=== PATIENT | male | born 1960 | race Caucasian/White ===

== ENCOUNTER → 2016-10-08 | Outpatient (CLI) | payer OTHER ==
[~2016-10-08] MED LIST: AMLO10TA2 PO; ASPI81TA28 PO; ATOR-22 PO; BROM1SOL8 OPR; ERGO1TAB12 PO; HYG/25 PO; INSPMPNVLG; LOSA50TA6 PO; METF-384 PO; PRED1SUS3 OPR; SILD100T PO
== END | disposition home or self-care (01) ==
LOC: C.LABBFT 14:32
PROVIDERS: ATTEND Urology
DX: C61 Malignant neoplasm of prostate (principal)

== ENCOUNTER → 2017-02-18 | Outpatient (CLI) | payer OTHER ==
[2017-02-18 17:13] LABS: URINE APPEARANCE TURBID (CLEAR); URINE BILIRUBIN NEG (NEG); URINE COLOR DK YELLOW; URINE NITRITE NEG (NEG); URINE SPECIFIC GRAVITY 1.027 (1.000-1.030); UROBILINOGEN NEG (NEG)
[2017-02-18 17:15] LABS: ALT/SGPT 32 U/L (12-78); AST/SGOT 21 U/L (15-37); BLOOD UREA NITROGEN 21 mg/dl (7-18); CALCIUM 9.7 mg/dl (8.5-10.1); CARBON DIOXIDE 29 mmol/L (21-32); CHLORIDE 106 mmol/L (98-107); CHOLESTEROL 104 mg/dl (0-200); GLUCOSE 150 mg/dl (70-99); POTASSIUM 4.4 mmol/L (3.5-5.1); SODIUM 144 mmol/L (136-145)
[2017-02-18 17:18] LABS: CHOLESTEROL/HDL RATIO 2.5; HDL CHOLESTEROL 42 mg/dl; LDL CHOLESTEROL CALCULATED 38 mg/dl; TRIGLYCERIDES 120 mg/dl (0-150); VERY LOW DENSITY LIPOPROT CALC 24 mg/dl
[2017-02-18 17:23] LABS: MANUAL MICROSCOPIC REQUIRED? NO; REVIEW REQ? NO
[2017-02-18 17:48] LABS: URINE PROTIEN/CREAT RATIO 0.3 (0-0.2); URINE TOTAL PROTEIN 102.1 mg/dl (0-11.9)
[2017-02-19 05:37] LABS: ESTIMATED AVERAGE GLUCOSE 200 mg/dl; HA1C FLAG Normal (Normal)
== END | disposition home or self-care (01) ==
LOC: C.LABBFT 11:19
PROVIDERS: ATTEND Internal Medicine Nephrology
DX: E11.9 Type 2 diabetes mellitus without complications (principal); R80.9 Proteinuria, unspecified

== ENCOUNTER → 2017-03-02 | Outpatient (CLI) | payer OTHER ==
--- NOTE | 2017-03-02 11:22 | DIAGNOSTIC IMAGING REPORT ---
ULTRASOUND OF THE CAROTID ARTERIES CLINICAL HISTORY: Transient ischemic attack. COMPARISON STUDY: No priors. TECHNIQUE: Real-time, grayscale, and color Doppler sonography of the carotid arteries is performed. Images are reviewed in the transverse and longitudinal planes. FINDINGS: Blood pressure in the right arm measures 158/76 and blood pressure in the left arm measures 154/76. The carotid arteries are patent bilaterally and demonstrate antegrade flow. There is no significant atherosclerotic plaque identified. Normal doppler arterial waveforms are seen throughout. Velocity measurements are listed below. Common carotid peak systolic velocity (cm/sec): RIGHT: 80 LEFT: 87 ICA proximal peak systolic velocity (cm/sec): RIGHT: 71 LEFT: 80 ICA mid peak systolic velocity (cm/sec): RIGHT: 63 LEFT: 77 ICA distal peak systolic velocity (cm/sec): RIGHT: 76 LEFT: 60 ICA/CC peak systolic ratio: RIGHT: 1.0 LEFT: 0.9 Antegrade flow was shown in the vertebral arteries. The external carotid arteries are patent. IMPRESSION: 1. There is no sonographic evidence of hemodynamically significant stenosis in the right or left carotid arterial system. 2. Antegrade flow is shown in the vertebral arteries. Electronically signed by: Marlon Douglas M.D. 03/02/2017 11:21 AM Dictated Date/Time: 03/02/2017 11:20 AM
== END | disposition home or self-care (01) ==
LOC: C.ULTR 10:41
PROVIDERS: ATTEND Nurse Practitioner
DX: E11.9 Type 2 diabetes mellitus without complications (principal); Z86.73 Personal history of transient ischemic attack (TIA), and cerebral infarction without residual deficits

== ENCOUNTER → 2017-03-18 | Outpatient (CLI) | payer OTHER | END | disposition home or self-care (01) | LOC: C.PATHSPEC 14:59 | PROVIDERS: ATTEND Urology | DX: R97.20 Elevated prostate specific antigen [PSA] (principal); C61 Malignant neoplasm of prostate ==

== ENCOUNTER → 2017-09-13 | Outpatient (CLI) | payer OTHER ==
[2017-09-13 12:16] LABS: ESTIMATED AVERAGE GLUCOSE 203 mg/dl; HA1C FLAG Normal (Normal)
[2017-09-13 12:37] LABS: CHOLESTEROL/HDL RATIO 2.5; PROSTATE SPECIFIC ANTIGEN 4.68 ng/ml (0.000-4.000); THYROID STIMULATING HORMONE 1.07 uIu/ml (0.300-4.500)
[2017-09-13 13:03] LABS: RATIO 506.9 mcg/mg (0-30.0)
== END | disposition home or self-care (01) ==
LOC: C.LABBFT 10:30
PROVIDERS: ATTEND Physician Assistant
DX: Z00.00 Encounter for general adult medical examination without abnormal findings (principal); E55.9 Vitamin D deficiency, unspecified; N52.9 Male erectile dysfunction, unspecified; E11.3299 Type 2 diabetes mellitus with mild nonproliferative diabetic retinopathy without macular edema, unspecified eye; E78.5 Hyperlipidemia, unspecified; R10.9 Unspecified abdominal pain; S60.559A Superficial foreign body of unspecified hand, initial encounter; X58.XXXA Exposure to other specified factors, initial encounter; C61 Malignant neoplasm of prostate; R97.20 Elevated prostate specific antigen [PSA]

== ENCOUNTER 2020-09-13 21:45 | Inpatient (IN) ==
[2020-09-13] MEDS ORDERED: SODIUM CHLORIDE 0.9% 1000ML 1,000 ML IV ONE ×2 (22:16→23:09)
[2020-09-13] MEDS ORDERED: ACETAMINOPHEN 500 MG TAB PO STA (22:16)
--- NOTE | 2020-09-13 22:22 | Emergency Department Note ---
History of Present Illness General Chief complaint: Foot Injury/Pain Stated complaint: FOOT SORES Time Seen by Provider: 09/13/20 21:53 Source: patient Mode of arrival: ambulatory Limitations: no limitations History of Present Illness Maximum Pain Intensity: 2 This patient is a 59-year-old male who presents to the emergency department for evaluation of a right foot infection. Patient states that he has had some u lcers on his foot for the past 2 or 3 days. He has been seeing his primary care provider for this and they have been applying dressings. Per patient, he is not on any antibiotics for this. He also states that he tested positive for COVID- 19. Test was done 3 or 4 days ago. He states that this was only due to an exposure and he has not had any symptoms of COVID-19. He has not noticed any fevers. Denies shortness of breath or vomiting. Patient reports that he is having more warmth and redness of his foot. He rates his discomfort a 2/10, but states that he has neuropathy and is typically not able to feel her feet. Patient is a type II diabetic on an insulin pump. Home Medications Medication Instructions Recorded Confirmed Type aspirin 81 mg tablet,delayed 81 mg PO DAILY tab 05/09/19 09/13/20 History release cholecalciferol (vitamin D3) 25 2,000 units PO DAILY cap 05/09/19 09/13/20 History mcg (1,000 unit) capsule cyanocobalamin (vitamin B-12) 1,000 mcg PO DAILY tab 05/09/19 09/13/20 History 1,000 mcg tablet insulin lispro 100 unit/mL 120 units CONTINUOUS SUBCUTANEOUS 05/09/19 09/13/20 History subcutaneous solution INFUSION UD #11 ml Humalog U-100 Insulin 100 unit/mL 120 units CONTINUOUS SUBCUTANEOUS 11/23/19 09/13/20 Rx subcutaneous solution INFUSION .COMPLEX 90 Days #11 vial NS amlodipine 10 mg tablet 10 mg PO DAILY #90 tab 02/08/20 09/13/20 Rx atorvastatin 20 mg tablet 20 mg PO ONCE #90 tab 02/08/20 09/13/20 Rx metformin 1,000 mg tablet 1,000 mg PO BID #180 tab 02/08/20 09/13/20 Rx tramadol 50 mg tablet 50 mg PO Q4H PRN #180 tab 09/30/20 12/12/20 Rx acetaminophen 325 mg capsule 325 mg PO QID PRN 08/04/20 09/13/20 History chlorthalidone 25 mg tablet 50 mg PO BID #90 tab 08/20/20 09/13/20 Rx diclofenac sodium 1 % topical gel 2 g TOPICAL QID #100 g 08/20/20 09/13/20 Rx cyclobenzaprine 5 mg tablet See Rx Instructions PO DAILY PRN 08/25/20 09/13/20 Rx #45 tab losartan 100 mg tablet 50 mg PO DAILY #90 tab 08/25/20 09/13/20 Rx albuterol sulfate 90 mcg/actuation 2 puff INHALATION 6XD PRN #8.5 g 09/11/20 09/13/20 Rx aerosol inhaler amoxicillin 875 mg-potassium 1 tab PO BID #20 tab 09/12/20 09/13/20 Rx clavulanate 125 mg tablet benzonatate 100 mg capsule 100 mg PO TID #30 cap 09/13/20 09/13/20 Rx methylprednisolone 4 mg tablets in See Rx Instructions .ROUTE 09/13/20 09/13/20 Rx a dose pack .COMPLEX #21 ea Allergies Allergy/AdvReac Type Severity Reaction Status Date / Time animal dander Allergy Congested Verified 09/13/20 23:14 lisinopril AdvReac Mild COUGH Verified 09/13/20 23:14 Past Med/Surg History Medical History Diabetes mellitus type 2, uncontrolled Diabetic neuropathy Dyslipidemia History of TIA (transient ischemic attack) Hypertension Malignant neoplasm prostate Obesity Sleep apnea Spastic quadriplegia Stage 1 chronic kidney disease Surgical History History of ankle surgery History of cataract surgery History of prostate biopsy History of tonsillectomy Hx of cervical spine surgery Family History Mother Breast cancer Diabetes Father Myocardial infarction Kidney disease Diabetes Grandfather Diabetes Denies family history of Ovarian cancer Prostate cancer Colorectal cancer Social History Smoking Status: Never smoker Second Hand Exposure: No; Do You Dip or Chew Tobacco: No; Hx Alcohol Use: No Hx Substance Use: No Preferred Language: Albanian Communication Ability: Effective Visual Impairment: No Limitations Hearing Ability: Normal Technical Professional Required: No Beliefs That Will Affect Care: None marital status: Current Living Situation: Spouse current occupational status: employed 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 Other Information That Helps Us Care for You: No Feels Safe at Home: Yes Safety Concerns: Feels Safe At This Time Childhood Exposure to Second-Hand Smoke: Yes caffeine: Yes during the past year weight has: remained stable Dental Care, Regularly: Yes Physical Activity Frequency: 1-2 Times per Week Seatbelt Use: always Sunscreen Use: Yes Assistive Devices: Oxygen - Continuous Review of Systems A total of 10 systems reviewed and were otherwise negative Physical Exam Vital Signs Vital Signs - 24 hr 09/13/20 21:47 09/13/20 22:44 Temperature 38.3 C H Temperature Source Temporal Artery Scan Pulse Rate 124 H Pulse Rate [Right Finger] 115 H Respiratory Rate 18 16 Respiratory Effort / Characteristics Non-Labored Respiratory Depth Normal Blood Pressure 144/71 H Blood Pressure [Right Arm] 166/81 H Blood Pressure Mean 95 Blood Pressure Mean [Right Arm] 109 Pulse Oximetry 95 98 Oxygen Delivery Method Room Air Sepsis Recent Fever Within 48 Hours No Sepsis New/Unexplained Change in Mental Status No Sepsis Action Taken by Nursing No Action Required VITALS: Vitals are noted on the nurse's note and reviewed by myself. GENERAL: This is a 59-year-old male, in no acute distress, well-developed well- nourished. EARS: External auditory canals clear, tympanic membranes pearly max without erythema or effusion bilaterally. EYES: Pupils equal round and reactive to light and accommodation. MOUTH: Mucous membranes moist. NECK: Supple without nuchal rigidity. No lymphadenopathy. HEART: Regular rate and rhythm without murmurs gallops or rubs. LUNGS: Clear to auscultation bilaterally without wheezes, rales or rhonchi. No retractions or accessory muscle use. EXTREMITIES: Right foot with an ulceration to the plantar aspect of the foot at the area of the dorsal MTP. There is an additional ulceration to the medial aspect of the right great toe. There is erythema to the first, second and third toes extending midway up the dorsum of the foot with some possible lymphangitic streaking of the right anterior lower leg. There is purplish discoloration to the right second toe. There is macerated skin between the first and second toes with some skin sloughing. NEURO: Patient was alert and oriented to person place and time. Decreased sensation of bilateral lower extremities. Course Consultations Consultation #1: Dr. Sewell [facility] hospitalist Administered Medications Acetaminophen (Acetaminophen 325 Mg Tab) 650 mg PO Q4H PRN PRN Reason: pain/fever Stop: 10/14/20 01:10 Last Admin: 09/14/20 23:36 Dose: 650 mg Documented by: [id number] Admin: 09/14/20 16:02 Dose: 650 mg Documented by: [id number] Admin: 09/14/20 07:44 Dose: 650 mg Documented by: [id number] Albuterol (Albuterol Hfa 8 Gm Inhaler) 2 puffs INH Q4H PALMER Stop: 10/14/20 08:14 Last Admin: 09/14/20 22:54 Dose: 2 puffs Documented by: [id number] Admin: 09/14/20 19:47 Dose: 2 puffs Documented by: [id number] Admin: 09/14/20 15:24 Dose: 2 puffs Documented by: [id number] Admin: 09/14/20 12:13 Dose: 2 puffs Documented by: [id number] Admin: 09/14/20 08:30 Dose: 2 puffs Documented by: [id number] Amlodipine Besylate (Amlodipine Besylate 5 Mg Tab) 10 mg PO DAILY PALMER Stop: 10/14/20 08:59 Last Admin: 09/14/20 07:46 Dose: 10 mg Documented by: [id number] Aspirin (Aspirin 81 Mg Ectab) 81 mg PO DAILY PALMER Stop: 10/14/20 08:59 Last Admin: 09/14/20 07:46 Dose: 81 mg Documented by: [id number] Benzonatate (Benzonatate 100 Mg Capsule) 100 mg PO TID PALMER Stop: 10/14/20 08:59 Last Admin: 09/14/20 19:57 Dose: 100 mg Documented by: [id number] Admin: 09/14/20 12:25 Dose: 100 mg Documented by: [id number] Admin: 09/14/20 07:46 Dose: 100 mg Documented by: [id number] Chlorthalidone (Chlorthalidone 25 Mg Tab) 25 mg PO QAM PALMER Stop: 10/14/20 08:59 Last Admin: 09/14/20 07:45 Dose: 25 mg Documented by: [id number] Cyanocobalamin (Cyanocobalamin 500 Mcg Tablet (Vitamin B-12)) 1,000 mcg PO DAILY PALMER Stop: 10/14/20 08:59 Last Admin: 09/14/20 07:52 Dose: 1,000 mcg Documented by: [id number] Heparin Sodium (Porcine) (Heparin Sod 5,000 Unit/0.5 Ml Vial) 7,500 units SQ Q8 PALMER Stop: 10/14/20 21:59 Last Admin: 09/14/20 21:30 Dose: 7,500 units Documented by: [id number] Piperacillin Sod/Tazobactam (Sod 4.5 gm/ Dextrose) 120 mls @ 30 mls/hr IV Q8H PALMER; Protocol Stop: 09/21/20 03:59 Last Admin: 09/14/20 19:57 Dose: 30 mls/hr Documented by: [id number] Infusion: 09/14/20 16:35 Dose: 0 mls/hr Documented by: [id number] Admin: 09/14/20 12:24 Dose: 30 mls/hr Documented by: [id number] Infusion: 09/14/20 07:43 Dose: 0 mls/hr Documented by: [id number] Admin: 09/14/20 02:40 Dose: 30 mls/hr Documented by: [id number] Daptomycin 325 mg/ Syringe 6.5 mls @ 3.25 mls/min IV Q24H PALMER; Protocol Stop: 09/21/20 09:59 Last Admin: 09/14/20 09:42 Dose: 3.25 mls/min Documented by: [id number] Menthol (Cough Drop (Sugar Free) Alicia 24 Alicia/1 Box) 1 alicia BUCCAL PRN PRN PRN Reason: Cough Stop: 10/14/20 20:00 Last Admin: 09/14/20 20:09 Dose: 1 alicia Documented by: [id number] Vitamin D (Cholecalciferol 1,000 Units 25 Mcg Tab) 2,000 units PO DAILY PALMER Stop: 10/14/20 08:59 Last Admin: 09/14/20 07:51 Dose: 2,000 units Documented by: [id number] Discontinued Medications Acetaminophen (Acetaminophen 500 Mg Tab) 1,000 mg PO NOW STA Stop: 09/13/20 22:17 Last Admin: 09/13/20 22:43 Dose: 1,000 mg Documented by: [id number] Chlorthalidone (Chlorthalidone 25 Mg Tab) 50 mg PO BID PALMER Stop: 10/14/20 01:10 Last Admin: 09/14/20 02:39 Dose: 50 mg Documented by: [id number] Sodium Chloride (Nss 1000ml) 1,000 mls @ 999 mls/hr IV .Q1H1M ONE Stop: 09/13/20 23:16 Last Infusion: 09/14/20 00:09 Dose: 0 mls/hr Documented by: [id number] Admin: 09/13/20 22:43 Dose: 999 mls/hr Documented by: [id number] Piperacillin Sod/Tazobactam (Sod 3.375 gm/ Dextrose) 100 ml in 115 mls @ 230 mls/hr IV NOW STA Stop: 09/13/20 23:23 Last Infusion: 09/13/20 23:35 Dose: 0 mls/hr Documented by: [id number] Admin: 09/13/20 23:05 Dose: 230 mls/hr Documented by: [id number] Vancomycin HCl 2,250 mg/ (Sodium Chloride) 545 mls @ 200 mls/hr IV NOW ONE Stop: 09/14/20 01:37 Last Infusion: 09/14/20 01:55 Dose: 0 mls/hr Documented by: [id number] Admin: 09/13/20 23:05 Dose: 200 mls/hr Documented by: [id number] Sodium Chloride (Nss 1000ml) 1,000 mls @ 999 mls/hr IV .Q1H1M ONE Stop: 09/14/20 00:09 Last Admin: 09/14/20 02:32 Dose: Not Given Documented by: [id number] Potassium Chloride (Potassium Chloride Crtab 20 Meq Tabcr) 40 meq PO NOW STA Stop: 09/14/20 11:45 Last Admin: 09/14/20 12:24 Dose: 40 meq Documented by: [id number] Medical Decision Making Differential Diagnosis Differential diagnosis includes cellulitis, abscess, osteomyelitis, sepsis, diabetic foot infection, necrotizing fasciitis, Covid toes, among others. Home Medications Current Medication List: was personally reviewed by me Laboratory Data Attestation: I reviewed the patient's lab results. Result diagrams: 09/14/20 08:52 09/14/20 08:52 Lab Results 09/13/20 09/13/20 09/13/20 Range/Units 22:27 22:27 22:27 WBC 17.24 H (4.8-10.8) K/uL RBC 3.96 L (4.7-6.1) M/uL Hgb 10.7 L (14.0-18.0) g/dL Hct 31.8 L (42-52) % MCV 80.3 (80-100) fL MCH 27.0 (25-34) pg MCHC 33.6 (32-36) g/dL RDW Std Deviation 42.3 (36.4-46.3) fL RDW Coeff of Dajuan 14.3 (11.5-14.5) % Plt Count 389 (130-400) K/uL MPV 9.7 (7.4-10.4) fL Immature Gran % (Auto) 0.7 % Neut % (Auto) 75.1 % Lymph % (Auto) 11.1 % [place] % (Auto) 11.3 % Eos % (Auto) 1.6 % Baso % (Auto) 0.2 % Neut # (Auto) 12.96 H (1.4-6.5) K/uL Lymph # (Auto) 1.91 (1.2-3.4) K/uL [place] # (Auto) 1.95 H (0.11-0.59) K/uL Eos # (Auto) 0.27 (0-0.5) K/uL Baso # (Auto) 0.03 (0-0.2) K/uL Immature Gran # (Auto) 0.12 H (0.00-0.02) K/uL Sodium 136 (136-145) mmol/L Potassium 3.4 L (3.5-5.1) mmol/L Chloride 101 (98-107) mmol/L Carbon Dioxide 25 (21-32) mmol/L Anion Gap 10.0 (3-11) BUN 32 H (7-18) mg/dl Creatinine 1.41 H (0.6-1.4) mg/dl Est Cr Clr Drug Dosing 64.0 ml/min Est GFR ( Amer) 63.6 Est GFR (Non-Af Amer) 54.9 BUN/Creatinine Ratio 22.6 H (10-20) Glucose 187 H (70-99) mg/dl Lactate 2.4 H* (0.4-2.0) mmol/L Calcium 9.1 (8.5-10.1) mg/dl Total Bilirubin 0.5 (0.2-1) mg/dl AST 32 (15-37) U/L ALT 35 (12-78) U/L Alkaline Phosphatase 146 H (45-117) U/L Total Protein 7.5 (6.4-8.2) gm/dl Albumin 2.7 L (3.4-5.0) gm/dl Globulin 4.8 H (2.5-4.0) gm/dl Albumin/Globulin Ratio 0.6 L (0.9-2) Imaging Data Attestation: I personally reviewed and interpreted this imaging study as follows: Radiologist's Impression: RIGHT FOOT 3 VIEWS CLINICAL HISTORY: Right foot infection. FINDINGS: 3 views of the right foot are obtained. No prior studies are available for comparison at the time of dictation. The skeletal structures are osteopenic for age. No fracture is seen. There is no bony erosion or periostitis. Mild osteoarthritic change is seen at the first metatarsophalangeal joint. Soft tissue edema seen in the forefoot. There are foci of subcutaneous gas. Ulceration is suggested along the plantar aspect of the foot. Question a p unctate radiodense foreign body. This is only seen on the lateral projection. There is atherosclerotic calcification of the regional arteries. IMPRESSION: 1. No acute bony abnormality is identified. 2. An ulceration and a punctate radiodense foreign body are suggested along the plantar aspect of the forefoot. 3. Soft tissue edema is seen throughout the forefoot with foci of subcutaneous gas. This could be related to the ulceration or possibly gas-forming infection. Clinical correlation will be essential. SINGLE VIEW CHEST CLINICAL HISTORY: Covid. Right foot infection. FINDINGS: An AP, portable, upright chest radiograph is compared to study dated 11/28/2015. The examination is degraded by portable technique and apical lordotic positioning. The heart is enlarged. The pulmonary vasculature is noncongested. There are mild hazy interstitial opacities seen bilaterally. Scarring/atelectasis is noted in the left lower lung. No large pleural effusion or pneumothorax is seen. The skeletal structures are osteopenic. There are healed left-sided rib fractures. Arthritic change is noted in the shoulders. IMPRESSION: 1. Cardiomegaly with no radiographic evidence of congestive failure. 2. There are mild hazy interstitial airspace opacities seen bilaterally. Co rrelate clinically for evidence of an infectious/inflammatory pneumonitis. MDM Narrative The patient is a 59-year-old male who presents today complaining of an infection of his right foot. Patient is febrile and tachycardic on arrival. Patient also recently positive for COVID-19. Patient appears to have a fairly significant infection of the right foot. I suspect the fever and tachycardia are due to this infection rather than COVID-19 infection, as it sounds that the patient has most likely been infected for a while. It is possible that this foot infection began due to dermatologic manifestations of COVID-19, as patient does not recall any prior ulcerations or wounds to the foot. He has a significant leukocytosis as well as an elevation of his lactic acid. He had an outpatient wound culture which grew out gram-negative bacilli. Patient given IV fluids, Zosyn and vancomycin. Case was discussed with the hospitalist service who agreed to evaluate the patient for admission. Impression & Plan Sepsis, Diabetic foot infection, COVID-19 virus infection, Acute kidney injury Discharge Plan Visit Data Chief Complaint: Foot Injury/Pain Stated Complaint: FOOT SORES ED Provider: Milton García ED Midlevel Provider: Karolina Hammer Discharge Problem: Sepsis, Diabetic foot infection, COVID-19 virus infection, Acute kidney injury Patient Disposition: Admitted As Inpatient Discharge Instructions Interventions: ED Discharge Assessment Last Done: 09/14/20 00:48 Discharge Problem: Sepsis Qualifiers: Sepsis type: sepsis due to unspecified organism Sepsis acute organ dysfunction status: unspecified Qualified Code(s): A41.9 - Sepsis, unspecified organism
[2020-09-13 22:39] LABS: Basophils # (auto) 0.03 K/uL (0-0.2); Basophils % (auto) 0.2 %; Eosinophils # (auto) 0.27 K/uL (0-0.5); Eosinophils % (auto) 1.6 %; Hematocrit (blood only) 31.8 % (42-52); Hemoglobin 10.7 g/dL (14.0-18.0); Immature Granulocytes # (auto) 0.12 K/uL (0.00-0.02); Immature Granulocytes % (auto) 0.7 %; Lymphocytes # (auto) 1.91 K/uL (1.2-3.4); Lymphocytes % (auto) 11.1 %; Mean Corpuscular Hgb Conc 33.6 g/dL (32-36); Mean Corpuscular Volume 80.3 fL (80-100); Mean Platelet Volume 9.7 fL (7.4-10.4); Monocytes # (auto) 1.95 K/uL (0.11-0.59); Monocytes % (auto) 11.3 %; Neutrophils # (auto) 12.96 K/uL (1.4-6.5); Neutrophils % (auto) 75.1 %; Platelet Count 389 K/uL (130-400); RDW Coefficient of Variation 14.3 % (11.5-14.5); RDW Standard Deviation 42.3 fL (36.4-46.3); Red Blood Count 3.96 M/uL (4.7-6.1); White Blood Count 17.24 K/uL (4.8-10.8)
--- NOTE | 2020-09-13 22:49 | XRay Report ---
SINGLE VIEW CHEST CLINICAL HISTORY: Covid. Right foot infection. FINDINGS: An AP, portable, upright chest radiograph is compared to study dated 11/28/2015. The examina tion is degraded by portable technique and apical lordotic positioning. The heart is enlarged. The pu lmonary vasculature is noncongested. There are mild hazy interstitial opacities seen bilaterally. Sca rring/atelectasis is noted in the left lower lung. No large pleural effusion or pneumothorax is seen. The skeletal structures are osteopenic. There are healed left-sided rib fractures. Arthritic change is noted in the shoulders. IMPRESSION: 1. Cardiomegaly with no radiographic evidence of congestive failure. 2. There are mild hazy interstitial airspace opacities seen bilaterally. Correlate clinically for sandeep dence of an infectious/inflammatory pneumonitis. ACT 112: Negative or not required by law. Electronically signed by: Marlon Douglas M.D. 09/13/2020 10:47 PM
--- NOTE | 2020-09-13 22:51 | XRay Report ---
RIGHT FOOT 3 VIEWS CLINICAL HISTORY: Right foot infection. FINDINGS: 3 views of the right foot are obtained. No prior studies are available for comparison at th e time of dictation. The skeletal structures are osteopenic for age. No fracture is seen. There is no bony erosion or periostitis. Mild osteoarthritic change is seen at the first metatarsophalangeal elina nt. Soft tissue edema seen in the forefoot. There are foci of subcutaneous gas. Ulceration is suggest ed along the plantar aspect of the foot. Question a punctate radiodense foreign body. This is only se en on the lateral projection. There is atherosclerotic calcification of the regional arteries. IMPRESSION: 1. No acute bony abnormality is identified. 2. An ulceration and a punctate radiodense foreign body are suggested along the plantar aspect of the forefoot. 3. Soft tissue edema is seen throughout the forefoot with foci of subcutaneous gas. This could be rel ated to the ulceration or possibly gas-forming infection. Clinical correlation will be essential. Electronically signed by: Marlon Douglas M.D. 09/13/2020 10:50 PM
[2020-09-13] MEDS ORDERED: PIPERACILLIN/TAZOBACTAM 3.375 GM in DEXTROSE 5% 100 ML/100 ML BAG IV STA (22:54)
[2020-09-13] MEDS ORDERED: VANCOMYCIN CONSULT ACTIVE PRN (22:54)
[2020-09-13] MEDS ORDERED: VANCOMYCIN HCL 2,250 MG in SODIUM CHLORIDE 0.9% 500 ML IV ONE (22:54)
[2020-09-13] MEDS ORDERED: PIPERACILL/TAZOBAC CONSULT ACTIVE PRN (22:54)
[2020-09-13 22:57] LABS: Albumin Level 2.7 gm/dl (3.4-5.0); BUN Creatinine Ratio 22.6 (10-20); Calcium 9.1 mg/dl (8.5-10.1); Est GFR (African American) 63.6; Est GFR (Non-African American) 54.9; Potassium 3.4 mmol/L (3.5-5.1)
[2020-09-13 23:00] LABS: Albumin Globulin Ratio 0.6 (0.9-2); Bilirubin,Total 0.5 mg/dl (0.2-1); Globulin 4.8 gm/dl (2.5-4.0); Total Protein 7.5 gm/dl (6.4-8.2)
[2020-09-14] MEDS ORDERED: PIPERACILL/TAZOBAC CONSULT ACTIVE PRN (01:11)
[2020-09-14] MEDS ORDERED: CHLORTHALIDONE 25 MG TAB PO SCH (01:11)
[2020-09-14] MEDS ORDERED: VANCOMYCIN CONSULT ACTIVE PRN ×2 (01:11→06:03)
[2020-09-14] MEDS ORDERED: VANCOMYCIN HCL 1,000 MG in SODIUM CHLORIDE 0.9% 250 ML IV SCH ×2 (01:11→09:00)
[2020-09-14] MEDS ORDERED: ONDANSETRON INJ 2 MG/ML 2 ML VIAL IV PRN (01:11)
[2020-09-14] MEDS ORDERED: CYCLOBENZAPRINE HCL 5 MG TAB PO PRN (01:11)
--- NOTE | 2020-09-14 02:29 | History & Physical Report ---
Date of Service September 14, 2020 Assessment & Plan (1) Diabetic foot ulcers: Diabetic foot ulcers of right foot- Outpatient culture is growing gram-negative bacilli. Continue to follow sensitivities We will continue vancomycin IV and Zosyn IV begun in the ED Consult wound care. Order lower extremity arterial Dopplers to assess arterial circulation, but also to assess question of foreign body. May need a CT Consult wound care Consult orthopedic surgery when determined if foreign body is present Present on Admission?: Yes (2) Acute kidney injury: Creatinine 1.4 upon admission, with baseline 0.95. Outpatient med rec suggest chlorthalidone 50 mg p.o. twice daily, for now will reduce to 25 mg p.o. every morning. Reassess laboratories in a.m. Present on Admission?: Yes (3) COVID-19 virus infection: Patient initially had symptoms of cough and dyspnea on exertion about 7 days ago, when his was initially infected, but denies any symptoms at this time. Present on Admission?: Yes (4) Dyslipidemia: Continue atorvastatin 20 mg daily Present on Admission?: Yes (5) Hypertension: Continue amlodipine, aspirin. Hold losartan, and decrease chlorthalidone as noted Present on Admission?: Yes (6) Diabetic neuropathy: Present on Admission?: Yes (7) Diabetes mellitus type 2, uncontrolled: Will continue on his own insulin pump Present on Admission?: Yes (8) Sleep apnea: CPAP at bedtime as needed Present on Admission?: Yes Admission and Anticipated Discharge Date Admission Date: September 13, 2020 History of Present Illness Chief Complaint: The patient presents to the emergency department due to concerns regarding a right foot infection Primary Care Provider: DORCAS Orellana The patient is a 59-year-old male with a past medical history including sleep apnea, obesity, prostate cancer, hypertension, dyslipidemia, diabetic neuropathy, uncontrolled diabetes mellitus on insulin pump, excessive daytime sleepiness, hypertension, cervical spine disease, spastic quadriplegia, TIA, peripheral neuropathy, erectile dysfunction, proteinuria, proliferative diabetic retinopathy and vitamin D deficiency. His had been admitted to the hospital for COVID-19 virus infection, and he was tested on 09/11 and was positive for COVID-19 infection. He denies any symptoms related to COVID-19 infection at this time including shortness of breath, cough, dyspnea exertion, loss of taste or smell. He is primarily here today due to concerns regarding his right foot ulcers. He was started on Augmentin 875 mg p.o. twice daily at a virtual office visit on 09/12/2020. A surface wound culture taken at that time is presently growing gram-negative bacilli with sensitivities pending. In the emergency department this evening, patient was started on vancomycin IV and Zosyn IV. Pertinent laboratories included the following: Glucose 187, creatinine 1.4, WBC 17.24, hemoglobin 10.7, lactate 2.4, albumin 2.7 and potassium 3.4. Maximum temperature was 100.9 F X-ray of right foot showed no acute bony abnormality. An ulceration and a punctate radiodense foreign body are suggested along the plantar aspect of the forefoot. Soft tissue edema seen throughout the forefoot with foci of subcutaneous gas, which could be related to the ulceration or possibly gas- forming infection with clinical correlation being essential. Chest x-ray showed cardiomegaly with no radiographic evidence of congestive failure. There are mild hazy interstitial airspace opacities seen bilaterally, with clinical correlation needed for evidence of an infectious/inflammatory pneumonitis. Allergies Allergy/AdvReac Type Severity Reaction Status Date / Time animal dander Allergy Congested Verified 09/13/20 23:14 lisinopril AdvReac Mild COUGH Verified 09/13/20 23:14 Home Medications Medication Instructions Recorded Confirmed Type aspirin 81 mg tablet,delayed 81 mg PO DAILY tab 05/09/19 09/13/20 History release cholecalciferol (vitamin D3) 25 2,000 units PO DAILY cap 05/09/19 09/13/20 History mcg (1,000 unit) capsule cyanocobalamin (vitamin B-12) 1,000 mcg PO DAILY tab 05/09/19 09/13/20 History 1,000 mcg tablet insulin lispro 100 unit/mL 120 units CONTINUOUS SUBCUTANEOUS 05/09/19 09/13/20 History subcutaneous solution INFUSION UD #11 ml Humalog U-100 Insulin 100 unit/mL 120 units CONTINUOUS SUBCUTANEOUS 11/23/1909/21 Rx subcutaneous solution INFUSION .COMPLEX 90 Days #11 vial NS amlodipine 10 mg tablet 10 mg PO DAILY #90 tab 02/08/20 09/13/20 Rx atorvastatin 20 mg tablet 20 mg PO ONCE #90 tab 02/08/20 09/13/20 Rx metformin 1,000 mg tablet 1,000 mg PO BID #180 tab 02/08/20 09/13/20 Rx tramadol 50 mg tablet 50 mg PO Q4H PRN #180 tab 07/02/20 09/13/20 Rx acetaminophen 325 mg capsule 325 mg PO QID PRN 08/04/20 09/13/20 History chlorthalidone 25 mg tablet 50 mg PO BID #90 tab 08/20/20 09/13/20 Rx diclofenac sodium 1 % topical gel 2 g TOPICAL QID #100 g 08/20/20 09/13/20 Rx cyclobenzaprine 5 mg tablet See Rx Instructions PO DAILY PRN 08/25/20 09/13/20 Rx #45 tab losartan 100 mg tablet 50 mg PO DAILY #90 tab 08/25/20 09/13/20 Rx albuterol sulfate 90 mcg/actuation 2 puff INHALATION 6XD PRN #8.5 g 09/11/20 09/13/20 Rx aerosol inhaler amoxicillin 875 mg-potassium 1 tab PO BID #20 tab 09/12/20 09/13/20 Rx clavulanate 125 mg tablet benzonatate 100 mg capsule 100 mg PO TID #30 cap 09/13/20 09/13/20 Rx methylprednisolone 4 mg tablets in See Rx Instructions .ROUTE 09/13/20 09/13/20 Rx a dose pack .COMPLEX #21 ea Past Med/Surg History Medical History Diabetes mellitus type 2, uncontrolled Diabetic neuropathy Dyslipidemia History of TIA (transient ischemic attack) Hypertension Malignant neoplasm prostate Obesity Sleep apnea Spastic quadriplegia Stage 1 chronic kidney disease Surgical History History of ankle surgery History of cataract surgery History of prostate biopsy History of tonsillectomy Hx of cervical spine surgery Family History Mother Breast cancer Diabetes Father Myocardial infarction Kidney disease Diabetes Grandfather Diabetes Denies family history of Ovarian cancer Prostate cancer Colorectal cancer Social History Smoking Status: Never smoker Second Hand Exposure: No; Do You Dip or Chew Tobacco: No; Hx Alcohol Use: No Hx Substance Use: No Preferred Language: Rw[place] Communication Ability: Effective Visual Impairment: No Limitations Hearing Ability: Normal Company Manager Required: No Beliefs That Will Affect Care: None marital status: Current Living Situation: Spouse current occupational status: employed 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 Other Information That Helps Us Care for You: No Feels Safe at Home: Yes Safety Concerns: Feels Safe At This Time Childhood Exposure to Second-Hand Smoke: Yes caffeine: Yes during the past year weight has: remained stable Dental Care, Regularly: Yes Physical Activity Frequency: 1-2 Times per Week Seatbelt Use: always Sunscreen Use: Yes Assistive Devices: Cane Review of Systems Review of Systems: The patient denies chest pain, palpitations, shortness of breath, dyspnea on exertion, cough, sore throat, fevers, chills, sweats, weight change, fatigue, nausea, vomiting, diarrhea , constipation, abdominal pain, pelvic pain, blood in urine or stool, dysuria, urinary frequency or urgency, lightheadedness, dizziness, headache, memory loss, loss of consciousness, focal or generalized weakness, numbness or tingling in arms , generalized arthralgias or myalgias, back or neck pain, or night sweats. The review of systems is otherwise negative other than for that already noted above, and at least 10 systems have been reviewed. Physical Exam Physical Exam: The patient is awake, alert and oriented 3, well developed and well nourished, normocephalic and atraumatic, lying in bed and in no acute distress. HEENT--PERRL, EOMI, mucous membranes and oropharynx normal. Neck--supple. No JVD. No bruits. Thyroid normal, trachea midline, no adenopathy. Heart--normal S1 and S2. No murmurs, rubs or gallops. Lungs--clear bilaterally, no respiratory distress, no accessory muscle use. Abdomen--normal bowel sounds and soft. Nontender. Nondistended. Moderately obese Extremities--no cyanosis or clubbing. No edema. There are diminished pulses bilaterally Dermatologic--left lower extremity normal. Right foot with multiple ulcerations including plantar aspect dorsal MTP, medial aspect of right great toe. There is erythema first through third toes extending to the mid dorsum of the foot. The skin is macerated and skin sloughing between first and second toes and plantar area. Neurologic--cranial nerves II through XII grossly intact. Decreased peripheral sensation to touch Rheumatologic--normal range of motion. Psychiatric--normal affect. Results & Data Results & Data ([facility]) Vital Signs (Past 12 Hours) Vital Signs Temp Pulse Pulse Pulse Resp BP BP 09/14/20 01:10 99.5 F 109 H 20 153/73 H 09/14/20 00:48 110 H 20 163/73 H 09/14/20 00:27 99.9 F H 114 H 20 148/80 H 09/13/20 22:44 115 H 16 166/81 H 09/13/20 21:47 100.9 F H 124 H 18 144/71 H Pulse Ox 09/14/20 01:10 97 09/14/20 00:48 93 09/14/20 00:27 93 09/13/20 22:44 98 09/13/20 21:47 95 Laboratory Results Laboratory Results WBC 17.24 K/uL (4.8-10.8) H 09/13/20 22: RBC 3.96 M/uL (4.7-6.1) L 09/13/20 22: Hgb 10.7 g/dL (14.0-18.0) L 09/13/20 22: Hct 31.8 % (42-52) L 09/13/20 22: MCV 80.3 fL (80-100) 09/13/20 22: MCH 27.0 pg (25-34) 09/13/20 22: MCHC 33.6 g/dL (32-36) 09/13/20 22: RDW Std Deviation 42.3 fL (36.4-46.3) 09/13/20: RDW Coeff of Dajuan 14.3 % (11.5-14.5) 09/13/20: Plt Count 389 K/uL (130-400) 09/13/20 22: MPV 9.7 fL (7.4-10.4) 09/13/20: Immature Gran % (Auto) 0.7 % 09/13/20 22: Neut % (Auto) 75.1 % 09/13/20: Lymph % (Auto) 11.1 % 09/13/20: Mcleod % (Auto) 11.3 % 09/13/20 22: Eos % (Auto) 1.6 % 09/13/20 22:27 Baso % (Auto) 0.2 % 09/13/20 22: Neut # (Auto) 12.96 K/uL (1.4-6.5) H 09/13/20 22: Lymph # (Auto) 1.91 K/uL (1.2-3.4) 09/13/20 22: Mcleod # (Auto) 1.95 K/uL (0.11-0.59) H 09/13/20 22: Eos # (Auto) 0.27 K/uL (0-0.5) 09/13/20 22: Baso # (Auto) 0.03 K/uL (0-0.2) 09/13/20 22: Immature Gran # (Auto) 0.12 K/uL (0.00-0.02) H 09/13/20 22: Sodium 136 mmol/L (136-145) 09/13/20 22: Potassium 3.4 mmol/L (3.5-5.1) L 09/13/20: Chloride 101 mmol/L (98-107) 09/13/20 22: Carbon Dioxide 25 mmol/L (21-32) 09/13/20 22: Anion Gap 10.0 (3-11) 09/13/20 22: BUN 32 mg/dl (7-18) H 09/13/20 22: Creatinine 1.41 mg/dl (0.6-1.4) H 09/13/20: Est Cr Clr Drug Dosing 64.0 ml/min 09/13/20 22: Est GFR ( Amer) 63.6 09/13/20 22:27 Est GFR (Non-Af Amer) 54.9 09/13/20 22: BUN/Creatinine Ratio 22.6 (10-20) H 09/13/20 22: Glucose 187 mg/dl (70-99) H 09/13/20 22: POC Glucose 154 mg/dl (70-99) H 09/14/20 02:11 Lactate 2.5 mmol/L (0.4-2.0) H* 09/14/20 00:22 Calcium 9.1 mg/dl (8.5-10.1) 09/13/20 22:27 Total Bilirubin 0.5 mg/dl (0.2-1) 09/13/20 22:27 AST 32 U/L (15-37) 09/13/20 22:27 ALT 35 U/L (12-78) 09/13/20 22:27 Alkaline Phosphatase 146 U/L (45-117) H 09/13/20 22:27 Total Protein 7.5 gm/dl (6.4-8.2) 09/13/20 22:27 Albumin 2.7 gm/dl (3.4-5.0) L 09/13/20 22:27 Globulin 4.8 gm/dl (2.5-4.0) H 09/13/20 22:27 Albumin/Globulin Ratio 0.6 (0.9-2) L 09/13/20 22:27 Diagnostic Findings [facility], [id number] XRay Report Patient: MARIA GUADALUPE WOOTEN DAdmit Date: 09/13/20#: [id number]: [address] [facility][id number]: [address]B[facility] Date: 1960[facility] Zip: [place], [place] [address]Vsf: 59Location: EDSex: MRoom/Bed:Att Phy:Diagnosis: FOOT SORESPri Phy: Bee Tellez CRNPService Date: 09/13/20Fa Phy:Interpreting Phy: Marlon Douglas MDAdmit Phy: Ordering Phy: Karolina Hammer PA-C cc: ~ SINGLE VIEW CHEST CLINICAL HISTORY: Covid. Right foot infection. FINDINGS: An AP, portable, upright chest radiograph is compared to study dated 11/28/2015. The examination is degraded by portable technique and apical lordotic positioning. The heart is enlarged. The pulmonary vasculature is noncongested. There are mild hazy interstitial opacities seen bilaterally. Scarring/atelectasis is noted in the left lower lung. No large pleural effusion or pneumothorax is seen. The skeletal structures are osteopenic. There are healed left-sided rib fractures. Arthritic change is noted in the shoulders. IMPRESSION: 1. Cardiomegaly with no radiographic evidence of congestive failure. 2. There are mild hazy interstitial airspace opacities seen bilaterally. Correlate clinically for evidence of an infectious/inflammatory pneumonitis. ACT 112: Negative or not required by law. Electronically signed by: Marlon Douglas M.D. 09/13/2020 10:47 PM Dictated: 09/13/202245Transcribed: 09/13/202245 [facility], [id number] XRay Report Patient: MARIA GUADALUPE WOOTEN DAdmit Date: 09/13/20MR#: [id number]: [address][id number]: [address]: 1960[facility] Zip: [place] [address]Vzw: 59Location: EDSex: MRoom/Bed:Att Phy:Diagnosis: FOOT SORESPri Phy: Bee Tellez CRNPService Date: 09/13/20Fam Phy:Interpreting Phy: Marlon Douglas MDAdmit Phy: Ordering Phy: Karolina Hammer PA-C cc: ~ RIGHT FOOT 3 VIEWS CLINICAL HISTORY: Right foot infection. FINDINGS: 3 views of the right foot are obtained. No prior studies are available for comparison at the time of dictation. The skeletal structures are osteopenic for age. No fracture is seen. There is no bony erosion or periostitis. Mild osteoarthritic change is seen at the first metatarsophalangeal joint. Soft tissue edema seen in the forefoot. There are foci of subcutaneous gas. Ul ceration is suggested along the plantar aspect of the foot. Question a punctate radiodense foreign body. This is only seen on the lateral projection. There is atherosclerotic calcification of the regional arteries. IMPRESSION: 1. No acute bony abnormality is identified. 2. An ulceration and a punctate radiodense foreign body are suggested along the plantar aspect of the forefoot. 3. Soft tissue edema is seen throughout the forefoot with foci of subcutaneous gas. This could be related to the ulceration or possibly gas-forming infection. Clinical correlation will be essential. Electronically signed by: Marlon Douglas M.D. 09/13/2020 10:50 PM Dictated: 09/13/202246Transcribed: 09/13/202246 Code Status & VTE Plan Code Status Full code VTE Prophylaxis Plan VTE Prophylaxis will be ordered: Yes PG Care Time/CCT Total # of Minutes Spent Total Time Spent with Patient: Total time spent is greater than 50% in coordination of care (as documented) at patient's floor/unit and/or counseling patient: Coding Level of Care Code 87763 Initial Inpt Care Lvl 3 Diagnoses Diabetic foot ulcers E11.621; L97.509 Acute kidney injury N17.9 COVID-19 virus infection U07.1 Dyslipidemia E78.5 Hypertension I10 Diabetic neuropathy E11.40 Diabetes mellitus type 2, uncontrolled E11.65 Sleep apnea G47.30
[2020-09-14] MEDS: PIPERACILLIN/TAZOBACTAM 4.5 GM in DEXTROSE 5% 100 ML IV SCH ×3 (02:40→19:57)
[2020-09-14] MEDS: ACETAMINOPHEN 325 MG TAB PO PRN ×3 (07:44→23:36)
[2020-09-14] MEDS: CHLORTHALIDONE 25 MG TAB PO SCH (07:45)
[2020-09-14] MEDS: ASPIRIN 81 MG ECTAB PO SCH (07:46)
[2020-09-14] MEDS: BENZONATATE 100 MG CAPSULE PO SCH ×3 (07:46→19:57)
[2020-09-14] MEDS: amLODIPine BESYLATE 5 MG TAB PO SCH (07:46)
[2020-09-14] MEDS: CHOLECALCIFEROL 1,000 UNITS 25 MCG TAB PO SCH (07:51)
[2020-09-14] MEDS: CYANOCOBALAMIN 500 MCG TABLET (VITAMIN B-12) PO SCH (07:52)
[2020-09-14] MEDS: ALBUTEROL HFA 8 GM INHALER INH SCH ×5 (08:30→22:54)
--- NOTE | 2020-09-14 08:51 | Pharmacy Report ---
Pharmacy Abx Initial Consult - Date of Service September 14, 2020 - Pharmacy Dosing Scope Date of Consult: 09/13/20 Consultation requested by: Dr. Sewell Pharmacy is consulted to initiate Vancomycin and Zosyn IV/PO dosing therapy, order appropriate labs and adjust drug dose/frequency. - Subjective The patient is a 59 year old M admitted on 09/13/20 23:57. - Objective Height: 5 ft 4 in Weight: 102.7 kg Vital Signs (Past 12hrs): Vital Signs Temp Pulse Pulse Pulse Resp BP BP 09/14/20 08:30 114 H 16 09/14/20 07:36 38.1 C H 106 H 20 156/76 H 09/14/20 02:37 103 H 147/75 H 09/14/20 01:10 37.5 C 109 H 20 153/73 H 09/14/20 00:48 110 H 20 163/73 H 09/14/20 00:27 37.7 C H 114 H 20 148/80 H 09/13/20 22:44 115 H 16 166/81 H 09/13/20 21:47 38.3 C H 124 H 18 144/71 H Pulse Ox 09/14/20 08:30 96 09/14/20 07:36 95 09/14/20 02:37 09/14/20 01:10 97 09/14/20 00:48 93 09/14/20 00:27 93 09/13/20 22:44 98 09/13/20 21:47 95 Lab Results (24hrs): Laboratory Tests (24 Hours) 09/13/20 09/13/20 22:27 22:27 WBC 17.24 H Neut # (Auto) 12.96 H Creatinine 1.41 H Est Cr Clr Drug Dosing 64.0 Micro Results: 09/13/20 22:27 Aerobic Blood Culture - Pending Blood Anaerobic Blood Culture - Pending 09/13/20 22:27 Aerobic Blood Culture - Pending Blood Anaerobic Blood Culture - Pending - Assessment & Plan Assessment 59 year old M presents to ER for right diabetic foot ulcer. Outpatient culture growing Proteus mirabilis. Started on Vanc and Zosyn in ER, will continue for now. Right foot xray shows an ulceration and a punctate radiodense foreign body along plantar aspect of foot. Soft tissue edema throughout forefoot with foci of subcutaneous gas. Will consult ortho if determined to have foreign body in foot. * MEREDITH - SCr 1.4 on admission, baseline 0.95. If renal function improves may need to adjust dosing interval of Vancomycin * Tested positive for Covid 19 on 09/11, but patient denies any symptoms currently. Plan Vancomcyin & Zosyn for treatment of diabetic foot ulcer Vancomycin IV * Estimated PK Parameters: Vd 0.6 L/kg, Juan 0.058 hr-1, t1/2 11.9 hr * Loading dose: 2250 mg (21.9 mg/kg) * Maintenance dose: 1500 mg IV (14.6 mg/kg) every 14 hours * Goal trough level : ~ 15 mcg/mL * Trough/Random level ordered for 09/15/20 @ 1630 * A less than traditional dose and/or extended dosing interval has/have been selected due to likelihood of drug accumulation in obese patient/patient with h/o CKD. Piperacillin/tazobactam * 3.375g bolus administered over 30 minutes, then 4.5 g IV extended infusion every 8 hours for CrCl greater than 20 mL/min OR every 12 hours for CrCl 20 mL/min or less and dialysis. * Aggressive dosing selected due to critically ill status/BMI 35 or more/history of cystic fibrosis. Pharmacy will continue to follow and will adjust dose/frequency as necessary. Thank you.
[2020-09-14 09:19] LABS: Basophils # (auto) 0.03 K/uL (0-0.2); Basophils % (auto) 0.2 %; Eosinophils # (auto) 0.26 K/uL (0-0.5); Eosinophils % (auto) 1.5 %; Hematocrit (blood only) 31.4 % (42-52); Hemoglobin 10.5 g/dL (14.0-18.0); Immature Granulocytes # (auto) 0.11 K/uL (0.00-0.02); Immature Granulocytes % (auto) 0.7 %; Lymphocytes # (auto) 1.95 K/uL (1.2-3.4); Lymphocytes % (auto) 11.6 %; Mean Corpuscular Hgb Conc 33.4 g/dL (32-36); Mean Corpuscular Volume 80.7 fL (80-100); Mean Platelet Volume 9.8 fL (7.4-10.4); Monocytes # (auto) 1.94 K/uL (0.11-0.59); Monocytes % (auto) 11.5 %; Neutrophils # (auto) 12.59 K/uL (1.4-6.5); Neutrophils % (auto) 74.5 %; Platelet Count 393 K/uL (130-400); RDW Coefficient of Variation 14.6 % (11.5-14.5); RDW Standard Deviation 42.8 fL (36.4-46.3); Red Blood Count 3.89 M/uL (4.7-6.1); White Blood Count 16.88 K/uL (4.8-10.8)
--- NOTE | 2020-09-14 09:36 | Hospitalist Progress Note ---
Date of Service September 14, 2020 Assessment & Plan (1) Diabetic foot ulcers: Diabetic foot ulcers of right foot- Outpatient culture is growing proteus mirabilis and group B beta strep. Continue to follow sensitivities Dapto IV and Zosyn IV Consulted wound care. Order lower extremity arterial Dopplers to assess arterial circulation Discussed case with orthopedics - likely foci of air on X ray is due to open ulcer rather than gas producing infection especially as foot is overall improving, labs are improving, patient appears non toxic. No obvious signs of osteomyelitis on Xray. Would recommend arterial dopplers and IV antibiotic and monitor progress. If foot is worsening could consider formal consult but if he is improving, especially as he is at the beginning of his COVID infection and could worsen, would be better to hold off on any plans for surgery. BC pending (2) Acute kidney injury: Resolved Creatinine 1.4 upon admission, now 1.10 Outpatient med rec suggest chlorthalidone 50 mg p.o. twice daily, for now will reduce to 25 mg p.o. every morning. Repeat labs am (3) COVID-19 virus infection: Patient initially had symptoms of cough and dyspnea on exertion about 7 days ago, when his was initially infected, had been asymptomatic but today is developing dry cough and sob. He is about 4 days out from his COVID diagnosis Will consider decadron if O2 needs increase, at present he is on O2 more for comfort than for hypoxia, lowest recorded saturation is 93% Given infection and diabetes, will need to proceed with any steroid administration with caution (4) Dyslipidemia: Hold atorvastatin 20 mg daily while on dapto (5) Hypertension: Mild hypertension at present Continue amlodipine, aspirin. Hold losartan, and decrease chlorthalidone as noted (6) Diabetic neuropathy: does not appear to take medication for this (7) Diabetes mellitus type 2, uncontrolled: Will continue on his own insulin pump bsgs ac & hs (8) Sleep apnea: CPAP at bedtime as needed (9) DVT prophylaxis: heparin subq, scds Admission and Anticipated Discharge Date Admission Date: September 13, 2020 Supervising Physician Co-Signing Physician Notes chart reviewed and case d/w S Ifeoma TOSCANO multiple times today. as above Subjective Mr. Cao's foot infection symptoms started Tuesday. He saw his pcp and was told to put bacitracin and zinc on it and keep it wrapped. He later in the week did a telehealth visit and was prescribed Augmentin. He reports that on Tuesday wound started looking bad, flesh came off when unwrapped, then went to his pcp on Tuesday and was told it needed to be seen right away so he came in to the ED yesterday. Foot was draining clear drainage, did not look like pus but had foul odor. Today he feels his foot is improving, redness has decreased. He has been ambulating normally and has not stepped on anything to his knowledge but does have neuropathy. Wound was never painful. He has had some chills but no fevers at home. He was febrile over night here Sugars run around 150s, last A1c 7.8%. He is coughing, dry cough, non productive. No chest pain. He does feel short of breath after a coughing spell which he attributes to his asthma being kicked up by the cough. Review of Systems Constitutional: as per Subjective / HPI Respiratory: as per Subjective / HPI Cardiovascular: no chest pain and no palpitations Gastrointestinal: no abdominal pain, no nausea, no vomiting and no diarrhea/ loose stools Genitourinary: no dysuria and no urinary hesitancy Musculoskeletal: no back pain and no joint pain Integumentary: as per Subjective / HPI; no rash Physical Exam Physical Exam: General: no distress Eyes: normal inspection, PERLL Respiratory: chest non tender, clear to auscultation, normal breath sounds, no respiratory distress, dry cough, no accessory muscle use Cardiac: regular rate and rhythm, no rub or gallop, no murmur, no edema, no jvd, palpable pedal pulses GI/: active bowel sounds, no abd pain or tenderness, soft, non distended Extremities: normal range of motion, normal strength, non tender Neuro/Psych: alert and oriented x 3, normal mood and affect Skin: normal color, dry, left foot with large area of slough and skin maceration under great toe as well as eek of eschar on plantar foot. Second toe is purple. Erythema is minimal around foot and ankle with faint lymphangitis up the clay. No crepitus palpated. Non tender to palpation though patient has neuropathy. Significant amount of serous drainage saturating dressing. Results & Data Results & Data ([facility]) Vital Signs (Past 12 Hours) Vital Signs Temp Pulse Pulse Pulse Resp BP BP 09/14/20 08:30 114 H 16 09/14/20 07:36 38.1 C H 106 H 20 156/76 H 09/14/20 02:37 103 H 147/75 H 09/14/20 01:10 37.5 C 109 H 20 153/73 H 09/14/20 00:48 110 H 20 163/73 H 09/14/20 00:27 37.7 C H 114 H 20 148/80 H 09/13/20 22:44 115 H 16 166/81 H 09/13/20 21:47 38.3 C H 124 H 18 144/71 H Pulse Ox 09/14/20 08:30 96 09/14/20 07:36 95 09/14/20 02:37 09/14/20 01:10 97 09/14/20 00:48 93 09/14/20 00:27 93 09/13/20 22:44 98 09/13/20 21:47 95 PG Care Time/CCT Total # of Minutes Spent Total Time Spent with Patient: Total time spent is greater than 50% in coordination of care (as documented) at patient's floor/unit and/or counseling patient: Coding Level of Care Code 42719 Subseq Hosp Care Lvl 3 Diagnoses Diabetic foot ulcers E11.621; L97.509 Acute kidney injury N17.9 COVID-19 virus infection U07.1 Dyslipidemia E78.5 Hypertension I10 Diabetic neuropathy E11.40 Diabetes mellitus type 2, uncontrolled E11.65 Sleep apnea G47.30 DVT prophylaxis Z29.9
[2020-09-14 09:38] LABS: Albumin Level 2.6 gm/dl (3.4-5.0); BUN Creatinine Ratio 23.5 (10-20); C Reactive Protein 15.9 mg/dl (0-0.29); Creatinine Clr Calc Pharmacy 80.3 ml/min; Est GFR (African American) 85.9; Est GFR (Non-African American) 74.1; Potassium 3.3 mmol/L (3.5-5.1)
[2020-09-14 09:41] LABS: Albumin Globulin Ratio 0.5 (0.9-2); Bilirubin,Total 0.5 mg/dl (0.2-1); Globulin 4.7 gm/dl (2.5-4.0); Total Protein 7.3 gm/dl (6.4-8.2)
[2020-09-14] MEDS: DAPTOmycin 325 MG in SYRINGE 0 ML IV SCH (09:42)
[2020-09-14] MEDS ORDERED: POTASSIUM CHLORIDE CRTAB 20 MEQ TABCR PO STA (11:44)
--- NOTE | 2020-09-14 11:57 | Ultrasound Report ---
US arterial duplex bilateral lower extremity CLINICAL HISTORY: diabetic foot ulcer on right COMPARISON STUDY: None. FINDINGS: The ankle brachial indices were not obtained. There is scattered calcified plaque seen thro ughout the bilateral lower extremity arterial systems. There are monophasic waveforms within the righ t dorsalis pedis artery with a focal area of increased systolic velocity measuring 232 cm/s. This is consistent with an area of stenosis. The remaining bilateral lower extremity arterial systems demonst rate normal biphasic to triphasic waveforms and velocities. No evidence for arterial occlusion. IMPRESSION: 1. A focal area of hemodynamically significant stenosis seen within the right dorsalis pedis artery. 2. The remaining bilateral lower extremity arterial systems show no significant stenosis or occlusion . ACT 112: Negative or not required by law. Electronically signed by: Lopez Garcia M.D. 09/14/2020 11:56 AM
[2020-09-14] MEDS ORDERED: VANCOMYCIN HCL 1,500 MG in SODIUM CHLORIDE 0.9% 500 ML IV SCH (13:00)
[2020-09-14] MEDS ORDERED: DEXTROSE 50% 50 ML SYRINGE IV PRN (14:15)
[2020-09-14] MEDS ORDERED: GLUCAGON FOR INJ 1 MG VIAL SQ PRN (14:15)
[2020-09-14] MEDS ORDERED: GLUCOSE 40% GEL 15 GM TUBE PO PRN (14:15)
[2020-09-14] MEDS ORDERED: CARBOHYDRATES FOR HYPOGLYCEMIA PO PRN (14:15)
[2020-09-14] MEDS ORDERED: GLUCOSE 10 TABS/TUBE PO PRN (14:15)
[2020-09-14] MEDS ORDERED: INSULIN HUMAN LISPRO (humaLOG) 100 UNITS/ML VIAL SC PRN (14:15)
[2020-09-14] MEDS ORDERED: COUGH DROP (SUGAR FREE) LOZ 24 LOZ/1 BOX BUCCAL PRN (20:01)
[2020-09-14] MEDS: HEPARIN SOD 5,000 UNIT/0.5 ML VIAL SQ SCH (21:30)
[2020-09-15] MEDS: ALBUTEROL HFA 8 GM INHALER INH SCH ×6 (02:18→23:27)
[2020-09-15] MEDS: PIPERACILLIN/TAZOBACTAM 4.5 GM in DEXTROSE 5% 100 ML IV SCH (05:05)
[2020-09-15] MEDS: HEPARIN SOD 5,000 UNIT/0.5 ML VIAL SQ SCH ×3 (05:20→21:37)
[2020-09-15 07:30] LABS: Basophils # (auto) 0.02 K/uL (0-0.2); Basophils % (auto) 0.1 %; Eosinophils # (auto) 0.28 K/uL (0-0.5); Eosinophils % (auto) 1.7 %; Hematocrit (blood only) 30.3 % (42-52); Hemoglobin 10.3 g/dL (14.0-18.0); Immature Granulocytes # (auto) 0.12 K/uL (0.00-0.02); Immature Granulocytes % (auto) 0.7 %; Lymphocytes # (auto) 1.88 K/uL (1.2-3.4); Lymphocytes % (auto) 11.6 %; Mean Corpuscular Hemoglobin 27.5 pg (25-34); Mean Platelet Volume 10.2 fL (7.4-10.4); Monocytes # (auto) 1.61 K/uL (0.11-0.59); Monocytes % (auto) 9.9 %; Neutrophils # (auto) 12.28 K/uL (1.4-6.5); Platelet Count 444 K/uL (130-400); RDW Coefficient of Variation 14.8 % (11.5-14.5); RDW Standard Deviation 43.9 fL (36.4-46.3); Red Blood Count 3.74 M/uL (4.7-6.1); White Blood Count 16.19 K/uL (4.8-10.8)
[2020-09-15 08:04] LABS: Albumin Level 2.5 gm/dl (3.4-5.0); C Reactive Protein 13.7 mg/dl (0-0.29); Calcium 8.9 mg/dl (8.5-10.1); Creatinine Clr Calc Pharmacy 90.1 ml/min; Est GFR (African American) 98.8; Est GFR (Non-African American) 85.2; Magnesium 2.1 mg/dl (1.8-2.4); Potassium 3.1 mmol/L (3.5-5.1)
[2020-09-15 08:07] LABS: Albumin Globulin Ratio 0.5 (0.9-2); Bilirubin,Total 0.5 mg/dl (0.2-1); Total Protein 7.5 gm/dl (6.4-8.2)
[2020-09-15] MEDS: amLODIPine BESYLATE 5 MG TAB PO SCH (09:26)
[2020-09-15] MEDS: ASPIRIN 81 MG ECTAB PO SCH (09:26)
[2020-09-15] MEDS: CHLORTHALIDONE 25 MG TAB PO SCH (09:26)
[2020-09-15] MEDS: CHOLECALCIFEROL 1,000 UNITS 25 MCG TAB PO SCH (09:26)
[2020-09-15] MEDS: DAPTOmycin 325 MG in SYRINGE 0 ML IV SCH (09:27)
[2020-09-15] MEDS: CYANOCOBALAMIN 500 MCG TABLET (VITAMIN B-12) PO SCH (09:27)
[2020-09-15] MEDS: BENZONATATE 100 MG CAPSULE PO SCH ×3 (09:28→21:36)
[2020-09-15] MEDS ORDERED: POTASSIUM CHLORIDE CRTAB 20 MEQ TABCR PO STA ×2 (11:03→16:24)
[2020-09-15] MEDS: cefTRIAXone SODIUM 2,000 MG in DEXTROSE 5% 50 ML IV SCH (11:24)
[2020-09-15] MEDS: DEXAMETHASONE SOD PHOSPHATE 6 MG in SYRINGE 0 ML IV SCH (12:03)
[2020-09-15] MEDS: ACETAMINOPHEN 325 MG TAB PO PRN (16:03)
--- NOTE | 2020-09-15 16:23 | Hospitalist Progress Note ---
Date of Service September 15, 2020 Assessment & Plan (1) Diabetic foot ulcers: Diabetic foot ulcers of right foot-infected, with surrounding cellulitis Outpatient culture is growing proteus mirabilis and group B beta strep. Sensitive to ceftriaxone Dapto IV and Zosyn IV were started initially-we will narrow down to ceftriaxone Consulted wound care awaiting consultation. With lower extremity arterial Dopplers to assess arterial circulation-shows hemodynamically significant stenosis of the right dorsalis pedis, although he has strong pulses on examination Previous hospitalist discussed case with orthopedics - likely foci of air on X ray is due to open ulcer rather than gas producing infection especially as foot is overall improving, labs are improving, patient appears non toxic. No obvious signs of osteomyelitis on Xray. BCx no growth to date Foot does look like it needs debridement and at a minimum, formal orthopedic evaluation. We will place consult to orthopedics in case of need for surgical intervention -Continue IV ceftriaxone -Leukocytosis persists, continues with fevers which could be from Covid versus foot infection -Follow CBC, CRP, ESR, CMP in the morning -Continue to follow blood cultures -Continue wound care dressing changes (2) Fever: Spiking fevers for the last 2 days here-could be secondary to foot infection versus Covid-19 infection Tylenol as needed Follow blood cultures Continue antibiotics for the foot Procalcitonin is normal at 0.3 (3) Acute kidney injury: Resolved Creatinine 1.4 upon admission, now 0.9 Outpatient med rec shows dosing of chlorthalidone to be 50 mg p.o. twice daily, for now will reduce to 25 mg p.o. every morning. Repeat labs am (4) COVID-19 virus infection: Patient initially had symptoms of cough and dyspnea on exertion about 7 days prior to admission, when his was initially infected, and he had been asymptomatic but developed dry cough and sob as well as hypoxia on 09/14. He was tested here and was positive on 09/11 upon admission Because he is requiring oxygen his pulse ox was less than 94%, and he is symptomatic with shortness of breath and has evidence of pneumonia on chest x-ray-start dexamethasone 6 mg IV once daily -Also discussed with him about starting remdesivir x5-day course-he is agreeable We will hold off on convalescent plasma as no real likely benefit in ongoing studies and do not want to fluid overload him Continue supplemental O2 to keep pulse ox greater than 92% Follow chest x-ray to resolution Continue Tessalon Perles for cough, albuterol 2 puffs every 4 hours scheduled (5) Hypokalemia: Possibly secondary to chlorthalidone Replace with a total of 60 mEq potassium chloride Follow BMP and magnesium in the morning (6) Hypertension: Blood pressures mildly elevated Continue amlodipine, aspirin. Holding losartan for previous MEREDITH but could likely restart tomorrow Continue lower dose of chlorthalidone 25 mg once daily (7) Diabetic neuropathy: does not appear to take medication for this (8) Diabetes mellitus type 2, uncontrolled: Will continue on his own insulin pump Holding Metformin from home bsgs ac & hs Expect hyperglycemia now that on Decadron-can give supplemental NovoLog as needed (9) Sleep apnea: This is a suspected diagnosis but he has not had a formal sleep study yet (10) Cervical spine disease: He had a recent cervical spine fusion about 3 months ago Doing well with this and walks with a cane (11) Dyslipidemia: Held atorvastatin 20 mg daily while on dapto (12) Acute respiratory failure with hypoxia: As above, secondary to Covid-19 pneumonia Continue supplemental O2 and wean off as able to Continue dexamethasone which was started today (13) DVT prophylaxis: heparin subq, scds Disposition-continued stay Admission and Anticipated Discharge Date Admission Date: September 13, 2020 Subjective Patient has been quite anxious throughout the day and tearful that multiple times throughout our conversation. He reports he was feeling a little short of breath this morning but is now much improved after starting IV steroids. He is spiking fevers today. He reports that his left foot erythema is much improved from previous, and does not recall having any pain or stepping on anything sharp. He denies cough. No nausea or vomiting, no headache or sore throat. Review of Systems Review of Systems: All systems reviewed & are unremarkable except as noted in HPI & below Physical Exam Constitutional: WD/WN, vitals as above + obese Eyes: + anicteric sclerae Neck: trachea midline, no thyromegaly Respiratory: normal respiratory effort Auscultation: + crackles (At bases bilaterally); no rhonchi and no wheezes Cardiovascular: Rate/Rhythm: regular rate and regular rhythm Heart Sounds: no murmur Vessels: dorsalis pedis pulses present (Has 2+ dorsalis pedis pulse on the right) Extremities: + edema (Trace pitting edema of the legs right greater than left) Chest (Breasts): Chest: normal inspection of chest Gastrointestinal (Abdomen): normal bowel sounds, soft, nontender, no hepatosplenomegaly Musculoskeletal: Extremities: no cyanosis and no clubbing Skin: + wound (Large open ulcer on the right dorsal plantar and medial surface with serous) and + erythema (Right dorsal foot with edema) Also with Blanched area of macerated skin the dorsal and plantar surface of the forefoot just proximal to the toes, right second toe is a sausage digit and is purpleish with discoloration Neurologic: moves all extremities and awake; no focal motor deficits Psychiatric: Orientation: alert and oriented x 3 Speech: normal rate/rhythm/volume of speech Affect: + anxious affect Mood: + anxious mood Lymphatic: no lymphedema Results & Data Results & Data ([facility]) Vital Signs (Past 12 Hours) Vital Signs Temp Pulse Pulse Resp BP BP Pulse Ox 09/15/20 16:01 38.1 C H 108 H 20 149/73 H 97 09/15/20 15:52 38.0 C H 106 H 21 170/87 H 94 09/15/20 15:16 113 H 22 98 09/15/20 11:20 37.7 C H 24 97 09/15/20 11:17 112 H 20 96 09/15/20 08:18 37.9 C H 116 H 22 165/72 H 92 09/15/20 07:30 112 H 20 92 09/15/20 05:23 37.1 C Laboratory Results 09/15/20 09/15/20 09/15/20 Range/Units 20:19 17:05 12:13 WBC (4.8-10.8) K/uL RBC (4.7-6.1) M/uL Hgb (14.0-18.0) g/dL Hct (42-52) % MCV (80-100) fL MCH (25-34) pg MCHC (32-36) g/dL RDW Std Deviation (36.4-46.3) fL RDW Coeff of Dajuan (11.5-14.5) % Plt Count (130-400) K/uL MPV (7.4-10.4) fL Immature Gran % (Auto) % Neut % (Auto) % Lymph % (Auto) % [place] % (Auto) % Eos % (Auto) % Baso % (Auto) % Neut # (Auto) (1.4-6.5) K/uL Lymph # (Auto) (1.2-3.4) K/uL [place] # (Auto) (0.11-0.59) K/uL Eos # (Auto) (0-0.5) K/uL Baso # (Auto) (0-0.2) K/uL Immature Gran # (Auto) (0.00-0.02) K/uL Sodium (136-145) mmol/L Potassium (3.5-5.1) mmol/L Chloride (98-107) mmol/L Carbon Dioxide (21-32) mmol/L Anion Gap (3-11) BUN (7-18) mg/dl Creatinine (0.6-1.4) mg/dl Est Cr Clr Drug Dosing ml/min Est GFR ( Amer) Est GFR (Non-Af Amer) BUN/Creatinine Ratio (10-20) Glucose (70-99) mg/dl POC Glucose 232 H 184 H 177 H (70-99) mg/dl Calcium (8.5-10.1) mg/dl Magnesium (1.8-2.4) mg/dl Total Bilirubin (0.2-1) mg/dl AST (15-37) U/L ALT (12-78) U/L Alkaline Phosphatase (45-117) U/L C-Reactive Protein (0-0.29) mg/dl Total Protein (6.4-8.2) gm/dl Albumin (3.4-5.0) gm/dl Globulin (2.5-4.0) gm/dl Albumin/Globulin Ratio (0.9-2) Procalcitonin (0-0.5) ng/ml 09/15/20 09/15/20 09/15/20 Range/Units 08:25 06:33 06:33 WBC (4.8-10.8) K/uL RBC (4.7-6.1) M/uL Hgb (14.0-18.0) g/dL Hct (42-52) % MCV (80-100) fL MCH (25-34) pg MCHC (32-36) g/dL RDW Std Deviation (36.4-46.3) fL RDW Coeff of Dajuan (11.5-14.5) % Plt Count (130-400) K/uL MPV (7.4-10.4) fL Immature Gran % (Auto) % Neut % (Auto) % Lymph % (Auto) % [place] % (Auto) % Eos % (Auto) % Baso % (Auto) % Neut # (Auto) (1.4-6.5) K/uL Lymph # (Auto) (1.2-3.4) K/uL [place] # (Auto) (0.11-0.59) K/uL Eos # (Auto) (0-0.5) K/uL Baso # (Auto) (0-0.2) K/uL Immature Gran # (Auto) (0.00-0.02) K/uL Sodium 139 (136-145) mmol/L Potassium 3.1 L (3.5-5.1) mmol/L Chloride 105 (98-107) mmol/L Carbon Dioxide 27 (21-32) mmol/L Anion Gap 7.0 (3-11) BUN 19 H (7-18) mg/dl Creatinine 0.98 (0.6-1.4) mg/dl Est Cr Clr Drug Dosing 90.1 ml/min Est GFR ( Amer) 98.8 Est GFR (Non-Af Amer) 85.2 BUN/Creatinine Ratio 19.0 (10-20) Glucose 132 H (70-99) mg/dl POC Glucose 159 H (70-99) mg/dl Calcium 8.9 (8.5-10.1) mg/dl Magnesium 2.1 (1.8-2.4) mg/dl Total Bilirubin 0.5 (0.2-1) mg/dl AST 26 (15-37) U/L ALT 30 (12-78) U/L Alkaline Phosphatase 152 H (45-117) U/L C-Reactive Protein 13.70 H (0-0.29) mg/dl Total Protein 7.5 (6.4-8.2) gm/dl Albumin 2.5 L (3.4-5.0) gm/dl Globulin 5.0 H (2.5-4.0) gm/dl Albumin/Globulin Ratio 0.5 L (0.9-2) Procalcitonin 0.34 (0-0.5) ng/ml 12/14/20 Range/Units 06:33 WBC 16.19 H (4.8-10.8) K/uL RBC 3.74 L (4.7-6.1) M/uL Hgb 10.3 L (14.0-18.0) g/dL Hct 30.3 L (42-52) % MCV 81.0 (80-100) fL MCH 27.5 (25-34) pg MCHC 34.0 (32-36) g/dL RDW Std Deviation 43.9 (36.4-46.3) fL RDW Coeff of Dajuan 14.8 H (11.5-14.5) % Plt Count 444 H (130-400) K/uL MPV 10.2 (7.4-10.4) fL Immature Gran % (Auto) 0.7 % Neut % (Auto) 76.0 % Lymph % (Auto) 11.6 % [place] % (Auto) 9.9 % Eos % (Auto) 1.7 % Baso % (Auto) 0.1 % Neut # (Auto) 12.28 H (1.4-6.5) K/uL Lymph # (Auto) 1.88 (1.2-3.4) K/uL [place] # (Auto) 1.61 H (0.11-0.59) K/uL Eos # (Auto) 0.28 (0-0.5) K/uL Baso # (Auto) 0.02 (0-0.2) K/uL Immature Gran # (Auto) 0.12 H (0.00-0.02) K/uL Sodium (136-145) mmol/L Potassium (3.5-5.1) mmol/L Chloride (98-107) mmol/L Carbon Dioxide (21-32) mmol/L Anion Gap (3-11) BUN (7-18) mg/dl Creatinine (0.6-1.4) mg/dl Est Cr Clr Drug Dosing ml/min Est GFR ( Amer) Est GFR (Non-Af Amer) BUN/Creatinine Ratio (10-20) Glucose (70-99) mg/dl POC Glucose (70-99) mg/dl Calcium (8.5-10.1) mg/dl Magnesium (1.8-2.4) mg/dl Total Bilirubin (0.2-1) mg/dl AST (15-37) U/L ALT (12-78) U/L Alkaline Phosphatase (45-117) U/L C-Reactive Protein (0-0.29) mg/dl Total Protein (6.4-8.2) gm/dl Albumin (3.4-5.0) gm/dl Globulin (2.5-4.0) gm/dl Albumin/Globulin Ratio (0.9-2) Procalcitonin (0-0.5) ng/ml PG Care Time/CCT Total # of Minutes Spent Total Time Spent with Patient: Total time spent is greater than 50% in coordination of care (as documented) at patient's floor/unit and/or counseling patient: Coding Level of Care Code 61666 Subseq Hosp Care Lvl 3 Diagnoses Diabetic foot ulcers E11.621; L97.509 Fever R50.9 Acute kidney injury N17.9 COVID-19 virus infection U07.1 Hypokalemia E87.6 Hypertension I10 Diabetic neuropathy E11.40 Diabetes mellitus type 2, uncontrolled E11.65 Sleep apnea G47.30 Cervical spine disease M48.9 Dyslipidemia E78.5 Acute respiratory failure with hypoxia J96.01 DVT prophylaxis Z29.9
[2020-09-15] MEDS ORDERED: REMDESIVIR 200 MG in SODIUM CHLORIDE 0.9% 210 ML IV ONE (16:26)
[2020-09-15] MEDS ORDERED: VANCOMYCIN TROUGH ONE (16:30)
[2020-09-15] MEDS: SODIUM CHLORIDE 0.9% 10ML FLUSH IV SCH (19:50)
[2020-09-16] MEDS: ALBUTEROL HFA 8 GM INHALER INH SCH ×3 (02:13→11:24)
[2020-09-16] MEDS: HEPARIN SOD 5,000 UNIT/0.5 ML VIAL SQ SCH ×3 (05:55→21:40)
[2020-09-16 07:34] LABS: Basophils # (auto) 0.02 K/uL (0-0.2); Basophils % (auto) 0.1 %; Eosinophils # (auto) 0.03 K/uL (0-0.5); Eosinophils % (auto) 0.2 %; Hemoglobin 10.1 g/dL (14.0-18.0); Immature Granulocytes # (auto) 0.18 K/uL (0.00-0.02); Immature Granulocytes % (auto) 0.9 %; Lymphocytes # (auto) 2.09 K/uL (1.2-3.4); Lymphocytes % (auto) 10.9 %; Mean Corpuscular Hemoglobin 27.2 pg (25-34); Mean Corpuscular Hgb Conc 33.7 g/dL (32-36); Mean Corpuscular Volume 80.9 fL (80-100); Mean Platelet Volume 9.9 fL (7.4-10.4); Monocytes # (auto) 1.73 K/uL (0.11-0.59); Neutrophils % (auto) 78.9 %; Platelet Count 495 K/uL (130-400); RDW Coefficient of Variation 14.9 % (11.5-14.5); RDW Standard Deviation 44.2 fL (36.4-46.3); Red Blood Count 3.71 M/uL (4.7-6.1); White Blood Count 19.15 K/uL (4.8-10.8)
[2020-09-16 08:04] LABS: Albumin Level 2.4 gm/dl (3.4-5.0); BUN Creatinine Ratio 23.3 (10-20); Calcium 9.5 mg/dl (8.5-10.1); Est GFR (African American) 102.6; Est GFR (Non-African American) 88.5; Magnesium 2.2 mg/dl (1.8-2.4); Potassium 3.5 mmol/L (3.5-5.1)
[2020-09-16 08:07] LABS: Albumin Globulin Ratio 0.4 (0.9-2); Bilirubin,Total 0.4 mg/dl (0.2-1); Globulin 5.4 gm/dl (2.5-4.0); Total Protein 7.8 gm/dl (6.4-8.2)
[2020-09-16] MEDS: DEXAMETHASONE SOD PHOSPHATE 6 MG in SYRINGE 0 ML IV SCH (08:53)
[2020-09-16] MEDS: BENZONATATE 100 MG CAPSULE PO SCH ×3 (08:54→20:35)
[2020-09-16] MEDS: amLODIPine BESYLATE 5 MG TAB PO SCH (08:55)
[2020-09-16] MEDS: CHOLECALCIFEROL 1,000 UNITS 25 MCG TAB PO SCH (08:55)
[2020-09-16] MEDS: ASPIRIN 81 MG ECTAB PO SCH (08:55)
[2020-09-16] MEDS: CHLORTHALIDONE 25 MG TAB PO SCH (08:56)
[2020-09-16] MEDS: CYANOCOBALAMIN 500 MCG TABLET (VITAMIN B-12) PO SCH (08:56)
[2020-09-16] MEDS: ATORVASTATIN 20 MG TAB PO SCH (08:57)
[2020-09-16] MEDS: cefTRIAXone SODIUM 2,000 MG in DEXTROSE 5% 50 ML IV SCH (09:50)
--- NOTE | 2020-09-16 12:06 | Hospitalist Progress Note ---
Date of Service September 16, 2020 Assessment & Plan (1) Diabetic foot ulcers: Diabetic foot ulcers of right foot-infected, with surrounding cellulitis Outpatient culture is growing proteus mirabilis and group B beta strep. Sensitive to ceftriaxone Dapto IV and Zosyn IV were started initially but have since narrowed down to ceftriaxone Consulted wound care appreciated With lower extremity arterial Dopplers to assess arterial circulation-shows hemodynamically significant stenosis of the right dorsalis pedis, although he has strong pulses on examination No obvious signs of osteomyelitis on Xray. Appreciate orthopedic surgery consultation-MRI of the foot was obtained and is negative for osteomyelitis but does show soft tissue infection Vascular surgery opinion sought and recommended no intervention of the dorsalis pedis Right second toe is a sausage digit with purpleish discoloration-could have thrombi to the smaller vessels perhaps from Covid infection? No vascular intervention necessary for that BCx no growth to date Foot may need debridement-awaiting orthopedic surgeon attending opinion -Continue IV ceftriaxone -Leukocytosis persists but now is likely from corticosteroid use, -Fevers have now resolved-could be from Covid versus foot infection -Follow CBC, CRP, ESR, CMP in the morning -Continue to follow blood cultures -Continue wound care dressing changes (2) Fever: Now resolved-could be secondary to foot infection versus Covid-19 infection Tylenol as needed Follow blood cultures Continue antibiotics for the foot Procalcitonin is normal at 0.3 (3) Acute kidney injury: Resolved Creatinine 1.4 upon admission, now 0.9 Outpatient med rec shows dosing of chlorthalidone to be 50 mg p.o. twice daily, have since reduced to 25 mg p.o. every morning. Repeat labs am (4) COVID-19 virus infection: Patient initially had symptoms of cough and dyspnea on exertion about 7 days prior to admission, when his was initially infected, and he had been asymptomatic but developed dry cough and sob as well as hypoxia on 09/14. He was tested here and was positive on 09/11 upon admission Because he is requiring oxygen his pulse ox was less than 94%, and he was symptomatic with shortness of breath with evidence of pneumonia on chest [id number] dexamethasone 6 mg IV once daily x10-day course-last dose will be 09/24 -Continue remdesivir x5-day course-last dose will be 09/19 We will hold off on convalescent plasma as no real likely benefit in ongoing studies and do not want to fluid overload him For acute respiratory failure with hypoxia-continue supplemental O2 to keep pulse ox greater than 92%-he has now been weaned off of this Follow chest x-ray to resolution Continue Tessalon Perles for cough, albuterol 2 puffs every 4 hours scheduled (5) Hypokalemia: Possibly secondary to chlorthalidone-is now resolved after replacement and lowering dose of chlorthalidone Follow BMP (6) Hypertension: Blood pressures mildly elevated Continue amlodipine, aspirin. Holding losartan for previous MEREDITH but will restart tomorrow Continue lower dose of chlorthalidone 25 mg once daily (7) Diabetic neuropathy: does not appear to take medication for this Is contributing to diabetic foot infection (8) Diabetes mellitus type 2, uncontrolled: Will continue on his own insulin pump With hyperglycemia secondary to dexamethasone Holding Metformin from home bsgs ac & hs He will increase the amount of insulin from his pump (9) Sleep apnea: This is a suspected diagnosis but he has not had a formal sleep study yet (10) Cervical spine disease: He had a recent cervical spine fusion about 3 months ago in [place] Doing well with this and walks with a cane (11) Dyslipidemia: Held atorvastatin 20 mg daily while on dapto Resumed (12) Acute respiratory failure with hypoxia: As above, secondary to Covid-19 pneumonia-now resolved Is now weaned off oxygen Continue dexamethasone (13) DVT prophylaxis: heparin subq, scds Disposition-continued stay Admission and Anticipated Discharge Date Admission Date: September 13, 2020 Subjective Patient reports feeling much better today with his breathing and less cough. He is weaned off oxygen back to room air. Denies chest pain or shortness of breath. No nausea or vomiting, he is tolerating p.o. His left foot has no pain. I discussed his care with the orthopedic physicians medical assistant internal medicine and the wound care nurse at the bedside when his wound was undressed. He remains afebrile. He is anxious about a possible surgical debridement of the foot but is willing to do it if necessary to save him from having a worsening infection He is in much better spirits today. He is managing his insulin pump and has noted blood sugars to be high and will make an adjustment this evening and his insulin pump Review of Systems Review of Systems: All systems reviewed & are unremarkable except as noted in HPI & below Physical Exam Constitutional: WD/WN, vitals as above + obese Eyes: + anicteric sclerae Neck: trachea midline, no thyromegaly Respiratory: normal respiratory effort Auscultation: no rhonchi and no wheezes Cardiovascular: Rate/Rhythm: regular rate and regular rhythm Heart Sounds: no murmur Vessels: dorsalis pedis pulses present (Has 2+ dorsalis pedis pulse on the right) Extremities: + edema (Trace pitting edema of the legs right greater than left) Chest (Breasts): Chest: normal inspection of chest Gastrointestinal (Abdomen): normal bowel sounds, soft, nontender, no hepatosplenomegaly Musculoskeletal: Extremities: no cyanosis and no clubbing Skin: + wound (Large open ulcer on the right dorsal plantar and medial surface with pus) and + erythema (Right dorsal foot with edema) Right second toe is a sausage digit and is purple in color Neurologic: moves all extremities and awake; no focal motor deficits Psychiatric: Orientation: alert and oriented x 3 Speech: normal rate/rhythm/volume of speech Lymphatic: no lymphedema Results & Data Results & Data ([facility]) Vital Signs (Past 12 Hours) Vital Signs Temp Pulse Pulse Resp BP Pulse Ox Pulse Ox 09/16/20 11:24 100 H 18 97 09/16/20 08:54 95 09/16/20 08:04 97 H 18 95 09/16/20 07:17 37.1 C 94 H 18 159/74 H 97 09/16/20 02:14 98 H 18 94 Laboratory Results 09/16/20 09/16/20 09/16/20 Range/Units 20:48 17:23 11:45 WBC (4.8-10.8) K/uL RBC (4.7-6.1) M/uL Hgb (14.0-18.0) g/dL Hct (42-52) % MCV (80-100) fL MCH (25-34) pg MCHC (32-36) g/dL RDW Std Deviation (36.4-46.3) fL RDW Coeff of Dajuan (11.5-14.5) % Plt Count (130-400) K/uL MPV (7.4-10.4) fL Immature Gran % (Auto) % Neut % (Auto) % Lymph % (Auto) % [place] % (Auto) % Eos % (Auto) % Baso % (Auto) % Neut # (Auto) (1.4-6.5) K/uL Lymph # (Auto) (1.2-3.4) K/uL [place] # (Auto) (0.11-0.59) K/uL Eos # (Auto) (0-0.5) K/uL Baso # (Auto) (0-0.2) K/uL Immature Gran # (Auto) (0.00-0.02) K/uL Sodium (136-145) mmol/L Potassium (3.5-5.1) mmol/L Chloride (98-107) mmol/L Carbon Dioxide (21-32) mmol/L Anion Gap (3-11) BUN (7-18) mg/dl Creatinine (0.6-1.4) mg/dl Est Cr Clr Drug Dosing ml/min Est GFR ( Amer) Est GFR (Non-Af Amer) BUN/Creatinine Ratio (10-20) Glucose (70-99) mg/dl POC Glucose 257 H 279 H 195 H (70-99) mg/dl Calcium (8.5-10.1) mg/dl Magnesium (1.8-2.4) mg/dl Total Bilirubin (0.2-1) mg/dl AST (15-37) U/L ALT (12-78) U/L Alkaline Phosphatase (45-117) U/L Total Protein (6.4-8.2) gm/dl Albumin (3.4-5.0) gm/dl Globulin (2.5-4.0) gm/dl Albumin/Globulin Ratio (0.9-2) 09/16/20 09/16/20 09/16/20 Range/Units 08:13 06:54 06:54 WBC 19.15 H (4.8-10.8) K/uL RBC 3.71 L (4.7-6.1) M/uL Hgb 10.1 L (14.0-18.0) g/dL Hct 30.0 L (42-52) % MCV 80.9 (80-100) fL MCH 27.2 (25-34) pg MCHC 33.7 (32-36) g/dL RDW Std Deviation 44.2 (36.4-46.3) fL RDW Coeff of Dajuan 14.9 H (11.5-14.5) % Plt Count 495 H (130-400) K/uL MPV 9.9 (7.4-10.4) fL Immature Gran % (Auto) 0.9 % Neut % (Auto) 78.9 % Lymph % (Auto) 10.9 % [place] % (Auto) 9.0 % Eos % (Auto) 0.2 % Baso % (Auto) 0.1 % Neut # (Auto) 15.10 H (1.4-6.5) K/uL Lymph # (Auto) 2.09 (1.2-3.4) K/uL [place] # (Auto) 1.73 H (0.11-0.59) K/uL Eos # (Auto) 0.03 (0-0.5) K/uL Baso # (Auto) 0.02 (0-0.2) K/uL Immature Gran # (Auto) 0.18 H (0.00-0.02) K/uL Sodium 138 (136-145) mmol/L Potassium 3.5 (3.5-5.1) mmol/L Chloride 105 (98-107) mmol/L Carbon Dioxide 25 (21-32) mmol/L Anion Gap 8.0 (3-11) BUN 22 H (7-18) mg/dl Creatinine 0.95 (0.6-1.4) mg/dl Est Cr Clr Drug Dosing 93.0 ml/min Est GFR ( Amer) 102.6 Est GFR (Non-Af Amer) 88.5 BUN/Creatinine Ratio 23.3 H (10-20) Glucose 157 H (70-99) mg/dl POC Glucose 159 H (70-99) mg/dl Calcium 9.5 (8.5-10.1) mg/dl Magnesium 2.2 (1.8-2.4) mg/dl Total Bilirubin 0.4 (0.2-1) mg/dl AST 22 (15-37) U/L ALT 32 (12-78) U/L Alkaline Phosphatase 151 H (45-117) U/L Total Protein 7.8 (6.4-8.2) gm/dl Albumin 2.4 L (3.4-5.0) gm/dl Globulin 5.4 H (2.5-4.0) gm/dl Albumin/Globulin Ratio 0.4 L (0.9-2) PG Care Time/CCT Total # of Minutes Spent Total Time Spent with Patient: Total time spent is greater than 50% in coordination of care (as documented) at patient's floor/unit and/or counseling patient: Coding Level of Care Code 02522 Subseq Hosp Care Lvl 3 Diagnoses Diabetic foot ulcers E11.621; L97.509 Fever R50.9 Acute kidney injury N17.9 COVID-19 virus infection U07.1 Hypokalemia E87.6 Hypertension I10 Diabetic neuropathy E11.40 Diabetes mellitus type 2, uncontrolled E11.65 Sleep apnea G47.30 Cervical spine disease M48.9 Dyslipidemia E78.5 Acute respiratory failure with hypoxia J96.01 DVT prophylaxis Z29.9
[2020-09-16] MEDS ORDERED: ALBUTEROL HFA 8 GM INHALER INH PRN (13:15)
--- NOTE | 2020-09-16 13:22 | Orthopedic Consultation ---
Date of Consultation September 16, 2020 Assessment & Plan (1) Diabetic foot infection: Continue current IV antibiotics. Dr. Iqbal is present during exam and plans will be for MRI with contrast of the right forefoot to rule out osteomyelitis and/or any other fluid collections noted. We will also have vascular service weigh in as well. I will discuss the case with Dr. Patton and plan accordingly when studies are back. History of Present Illness Reason for Consultation: Right foot infection Attending Physician: Michelle Iqbal MD History of Present Illness Patient is a 59-year-old white male who was admitted for COVID-19. Patient with history of diabetes mellitus type 2 with peripheral neuropathy, stage I kidney disease, HTN, Sleep Apnea. The patient states that his had just gotten over COVID-19 and he had then tested positive. Several days later he began having symptoms and then required hospitalization. Prior to that he states that after his had returned home, she noticed that there was some blood on the floor. After further investigation of the patient's foot, she noticed that the re was some bleeding from an ulcer region by the great toe and that there was a large amount of erythema around the forefoot. Patient came into the emergency room due to Covid sx's and foot erythema/drainage and was thusly admitted. We have been asked to see him for his right foot infection. Allergies Allergy/AdvReac Type Severity Reaction Status Date / Time animal dander Allergy Congested Verified 09/13/20 23:14 lisinopril AdvReac Mild COUGH Verified 09/13/20 23:14 Home Medications Medication Instructions Recorded Confirmed Type aspirin 81 mg tablet,delayed 81 mg PO DAILY tab 05/09/19 09/13/20 History release cholecalciferol (vitamin D3) 25 2,000 units PO DAILY cap 05/09/19 09/13/20 History mcg (1,000 unit) capsule cyanocobalamin (vitamin B-12) 1,000 mcg PO DAILY tab 05/09/19 09/13/20 History 1,000 mcg tablet insulin lispro 100 unit/mL 120 units CONTINUOUS SUBCUTANEOUS 05/09/19 09/13/20 History subcutaneous solution INFUSION UD #11 ml Humalog U-100 Insulin 100 unit/mL 120 units CONTINUOUS SUBCUTANEOUS 11/23/19 09/13/20 Rx subcutaneous solution INFUSION .COMPLEX 90 Days #11 vial NS amlodipine 10 mg tablet 10 mg PO DAILY #90 tab 02/08/20 09/13/20 Rx atorvastatin 20 mg tablet 20 mg PO ONCE #90 tab 02/08/20 09/13/20 Rx metformin 1,000 mg tablet 1,000 mg PO BID #180 tab 02/08/20 09/13/20 Rx tramadol 50 mg tablet 50 mg PO Q4H PRN #180 tab 07/02/20 09/13/20 Rx acetaminophen 325 mg capsule 325 mg PO QID PRN 08/04/20 09/13/20 History chlorthalidone 25 mg tablet 50 mg PO BID #90 tab 08/20/20 09/13/20 Rx diclofenac sodium 1 % topical gel 2 g TOPICAL QID #100 g 08/20/20 09/13/20 Rx cyclobenzaprine 5 mg tablet See Rx Instructions PO DAILY PRN 08/25/20 09/13/20 Rx #45 tab losartan 100 mg tablet 50 mg PO DAILY #90 tab 08/25/20 09/13/20 Rx albuterol sulfate 90 mcg/actuation 2 puff INHALATION 6XD PRN #8.5 g 09/11/20 09/13/20 Rx aerosol inhaler amoxicillin 875 mg-potassium 1 tab PO BID #20 tab 09/12/20 09/13/20 Rx clavulanate 125 mg tablet benzonatate 100 mg capsule 100 mg PO TID #30 cap 09/13/20 09/13/20 Rx methylprednisolone 4 mg tablets in See Rx Instructions .ROUTE 09/13/20 09/13/20 Rx a dose pack .COMPLEX #21 ea Patient History Medical History Diabetes mellitus type 2, uncontrolled Diabetic neuropathy Dyslipidemia History of TIA (transient ischemic attack) Hypertension Malignant neoplasm prostate Obesity Sleep apnea Spastic quadriplegia Stage 1 chronic kidney disease Surgical History History of ankle surgery History of cataract surgery History of prostate biopsy History of tonsillectomy Hx of cervical spine surgery Family History Mother Breast cancer Diabetes Father Myocardial infarction Kidney disease Diabetes Grandfather Diabetes Denies family history of Ovarian cancer Prostate cancer Colorectal cancer Social History Smoking Status: Never smoker Second Hand Exposure: No; Hx Alcohol Use: No Hx Substance Use: No Preferred Language: Turkmen Communication Ability: Effective Visual Impairment: No Limitations Hearing Ability: Normal 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 Patient states that this is improved. He does have a dorsalis pedis pulse that is palpable. Notable neuropathy with moderately decreased sensation. His second toe is dusky and appears to possibly have some vascular compromise. At the medial aspect of the foot at the first MTP area, he has an openly infected skin wound with purulent yellow to deutsch drainage and slough. There is no foul odor. Erythema surrounds this area as well. Wound care nurse is present and evaluating the foot and an ulcer that is at the plantar surface of the MTP joint. Sterile Q- tip can be placed into the ulcer that goes at least a centimeter in length if not more. Patient has no pain during this process. The ulcer itself does not have much erythema around it and there is not a lot drainage noted. On the plantar surface of the foot going from the great toe across the forefoot to approximate the fourth toe, at the base of the toes, he has an area of skin that has macerated with possibility of fluid underneath. Results & Data ([facility]) Vital Signs (Past 12 Hours) Vital Signs Temp Pulse Pulse Resp BP Pulse Ox Pulse Ox 09/16/20 11:24 100 H 18 97 09/16/20 08:54 95 09/16/20 08:04 97 H 18 95 09/16/20 07:17 37.1 C 94 H 18 159/74 H 97 09/16/20 02:14 98 H 18 94 Diagnostic Findings Patient: MARIA GUADALUPE WOOTEN [facility] Date: 09/13/20MR#: [id number]: [id number] ID:[id number]: [address]Birth Date: 1960[facility] Zip: [place] [id number]: 59Location: EDSex: MRoom/Bed:Att Phy:Diagnosis: FOOT SORESPri Phy: Bee Tellez, CRNPService Date: 09/13/20[facility] Phy:Interpreting Phy: Marlon Douglas MDAdmit Phy: Ordering Phy: Karolina Hammer PA-C cc: ~ RIGHT FOOT 3 VIEWS CLINICAL HISTORY: Right foot infection. FINDINGS: 3 views of the right foot are obtained. No prior studies are available for comparison at the time of dictation. The skeletal structures are osteopenic for age. No fracture is seen. There is no bony erosion or periostitis. Mild osteoarthritic change is seen at the first metatarsophalangeal joint. Soft tissue edema seen in the forefoot. There are foci of subcutaneous gas. Ulceration is suggested along the plantar aspect of the foot. Question a punctate radiodense foreign body. This is only seen on the lateral projection. There is atherosclerotic calcification of the regional arteries. IMPRESSION: 1. No acute bony abnormality is identified. 2. An ulceration and a punctate radiodense foreign body are suggested along the plantar aspect of the forefoot. 3. Soft tissue edema is seen throughout the forefoot with foci of subcutaneous gas. This could be related to the ulceration or possibly gas-forming infection. Clinical correlation will be essential. US arterial duplex bilateral lower extremity CLINICAL HISTORY: diabetic foot ulcer on right COMPARISON STUDY: None. FINDINGS: The ankle brachial indices were not obtained. There is scattered calcified plaque seen throughout the bilateral lower extremity arterial systems. There are monophasic waveforms within the right dorsalis pedis artery with a focal area of increased systolic velocity measuring 232 cm/s. This is consistent with an area of stenosis. The remaining bilateral lower extremity arterial systems demonstrate normal biphasic to triphasic waveforms and velocities. No evidence for arterial occlusion. IMPRESSION: 1. A focal area of hemodynamically significant stenosis seen within the right dorsalis pedis artery. 2. The remaining bilateral lower extremity arterial systems show no significant stenosis or occlusion.
[2020-09-16] MEDS ORDERED: GADOBUTROL 65ML VIAL IV ONE (14:09)
--- NOTE | 2020-09-16 14:25 | Magnetic Resonance Report ---
MRI OF THE RIGHT FOOT WITH AND WITHOUT CONTRAST CLINICAL HISTORY: diabetic foot infection,assess for osteomyelitis COMPARISON STUDY: Right foot radiographs September 13, 2020. TECHNIQUE: Utilizing a 1.5 Natacha magnet and dedicated coil, multiplanar, multi echo imaging of the [facility] forefoot was performed pre and postcontrast administration. Intravenous injection of 10 cc of Shorty avist was uneventful. FINDINGS: Tarsometatarsal joints are intact. Note is made of a wound along the plantar aspect of the right first toe at the level of the proximal phalanx. Hypointense signal within the soft tissue deep to the wound represents gas. There is moderate adjacent edema and enhancement with nonenhancing tissu e suggestive of phlegmon. There is no rim-enhancing fluid collection is suggest an abscess. There is no marrow edema to suggest osteomyelitis within the right forefoot. No suspicious marrow replacement is present. Note is made of mild osteoarthrosis of the right first metatarsophalangeal joint. No frac ture is identified. IMPRESSION: 1. No evidence for osteomyelitis within the right forefoot. 2. Wound of the plantar aspect of the right first toe with associated soft tissue gas, cellulitis and phlegmon. No rim-enhancing fluid collection to suggest an abscess. ACT 112: Negative or not required by law. Electronically signed by: Mauricio Olivares M.D. 09/16/2020 2:24 PM
--- NOTE | 2020-09-16 14:55 | Consultation ---
Date of Consultation September 16, 2020 Assessment & Plan (1) Diabetic foot ulcers: Chart and noninvasives were reviewed. Non invasives show a possible stenosis of the right dorsalis pedis artery. The rest of the arteries to both lower extremities are normal with normal waveforms. There is no intervention needed to the dorsalis pedis artery. Patient does not need to be seen for this lesion. Please call if you have any questions. History of Present Illness Attending Physician: Michelle Iqbal MD Allergies Allergy/AdvReac Type Severity Reaction Status Date / Time animal dander Allergy Congested Verified 09/13/20 23:14 lisinopril AdvReac Mild COUGH Verified 09/13/20 23:14 Home Medications Medication Instructions Recorded Confirmed Type aspirin 81 mg tablet,delayed 81 mg PO DAILY tab 05/09/19 09/13/20 History release cholecalciferol (vitamin D3) 25 2,000 units PO DAILY cap 05/09/19 09/13/20 History mcg (1,000 unit) capsule cyanocobalamin (vitamin B-12) 1,000 mcg PO DAILY tab 05/09/19 09/13/20 History 1,000 mcg tablet insulin lispro 100 unit/mL 120 units CONTINUOUS SUBCUTANEOUS 05/09/19 09/13/20 History subcutaneous solution INFUSION UD #11 ml Humalog U-100 Insulin 100 unit/mL 120 units CONTINUOUS SUBCUTANEOUS 11/23/19 09/13/20 Rx subcutaneous solution INFUSION .COMPLEX 90 Days #11 vial NS amlodipine 10 mg tablet 10 mg PO DAILY #90 tab 02/08/20 09/13/20 Rx atorvastatin 20 mg tablet 20 mg PO ONCE #90 tab 02/08/20 09/13/20 Rx metformin 1,000 mg tablet 1,000 mg PO BID #180 tab 02/08/20 09/13/20 Rx tramadol 50 mg tablet 50 mg PO Q4H PRN #180 tab 07/02/20 09/13/20 Rx acetaminophen 325 mg capsule 325 mg PO QID PRN 08/04/20 09/13/20 History chlorthalidone 25 mg tablet 50 mg PO BID #90 tab 08/20/20 09/13/20 Rx diclofenac sodium 1 % topical gel 2 g TOPICAL QID #100 g 08/20/20 09/13/20 Rx cyclobenzaprine 5 mg tablet See Rx Instructions PO DAILY PRN 08/25/20 09/13/20 Rx #45 tab losartan 100 mg tablet 50 mg PO DAILY #90 tab 08/25/20 09/13/20 Rx albuterol sulfate 90 mcg/actuation 2 puff INHALATION 6XD PRN #8.5 g 09/11/20 09/13/20 Rx aerosol inhaler amoxicillin 875 mg-potassium 1 tab PO BID #20 tab 09/12/20 09/13/20 Rx clavulanate 125 mg tablet benzonatate 100 mg capsule 100 mg PO TID #30 cap 09/13/20 09/13/20 Rx methylprednisolone 4 mg tablets in See Rx Instructions .ROUTE 09/13/20 09/13/20 Rx a dose pack .COMPLEX #21 ea Patient History Medical History Diabetes mellitus type 2, uncontrolled Diabetic neuropathy Dyslipidemia History of TIA (transient ischemic attack) Hypertension Malignant neoplasm prostate Obesity Sleep apnea Spastic quadriplegia Stage 1 chronic kidney disease Surgical History History of ankle surgery History of cataract surgery History of prostate biopsy History of tonsillectomy Hx of cervical spine surgery Family History Mother Breast cancer Diabetes Father Myocardial infarction Kidney disease Diabetes Grandfather Diabetes Denies family history of Ovarian cancer Prostate cancer Colorectal cancer Social History Smoking Status: Never smoker Second Hand Exposure: No; Hx Alcohol Use: No Hx Substance Use: No Preferred Language: Jordanian Communication Ability: Effective Visual Impairment: No Limitations Hearing Ability: Normal Housecleaner Required: No Beliefs That Will Affect Care: None marital status: Current Living Situation: Spouse current occupational status: employed 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
[2020-09-16] MEDS: REMDESIVIR 100 MG in SODIUM CHLORIDE 0.9% 230 ML IV SCH (14:59)
[2020-09-16] MEDS: SODIUM CHLORIDE 0.9% 10ML FLUSH IV SCH (17:10)
[2020-09-17] MEDS: HEPARIN SOD 5,000 UNIT/0.5 ML VIAL SQ SCH ×3 (05:13→20:02)
[2020-09-17 08:18] LABS: Basophils # (auto) 0.02 K/uL (0-0.2); Basophils % (auto) 0.1 %; Eosinophils # (auto) 0.15 K/uL (0-0.5); Eosinophils % (auto) 0.9 %; Hematocrit (blood only) 29.9 % (42-52); Hemoglobin 9.9 g/dL (14.0-18.0); Immature Granulocytes # (auto) 0.28 K/uL (0.00-0.02); Immature Granulocytes % (auto) 1.7 %; Lymphocytes # (auto) 2.71 K/uL (1.2-3.4); Lymphocytes % (auto) 16.1 %; Mean Corpuscular Hemoglobin 26.9 pg (25-34); Mean Corpuscular Hgb Conc 33.1 g/dL (32-36); Mean Corpuscular Volume 81.3 fL (80-100); Mean Platelet Volume 10.4 fL (7.4-10.4); Monocytes # (auto) 1.33 K/uL (0.11-0.59); Monocytes % (auto) 7.9 %; Neutrophils % (auto) 73.3 %; Nucleated RBC # (auto) 0.05 K/uL (0-0); Nucleated RBC % (auto) 0.3 %; Platelet Count 520 K/uL (130-400); RDW Standard Deviation 44.7 fL (36.4-46.3); Red Blood Count 3.68 M/uL (4.7-6.1); White Blood Count 16.79 K/uL (4.8-10.8)
[2020-09-17] MEDS: CHOLECALCIFEROL 1,000 UNITS 25 MCG TAB PO SCH (08:50)
[2020-09-17] MEDS: BENZONATATE 100 MG CAPSULE PO SCH ×3 (08:50→20:02)
[2020-09-17] MEDS: ATORVASTATIN 20 MG TAB PO SCH (08:50)
[2020-09-17] MEDS: DEXAMETHASONE SOD PHOSPHATE 6 MG in SYRINGE 0 ML IV SCH (08:50)
[2020-09-17] MEDS: CYANOCOBALAMIN 500 MCG TABLET (VITAMIN B-12) PO SCH (08:51)
[2020-09-17] MEDS: amLODIPine BESYLATE 5 MG TAB PO SCH (08:51)
[2020-09-17] MEDS: LOSARTAN POTASSIUM 50 MG TAB PO SCH (08:51)
[2020-09-17] MEDS: CHLORTHALIDONE 25 MG TAB PO SCH (08:51)
[2020-09-17] MEDS: ASPIRIN 81 MG ECTAB PO SCH (08:52)
[2020-09-17 08:55] LABS: Albumin Level 2.3 gm/dl (3.4-5.0); BUN Creatinine Ratio 28.7 (10-20); C Reactive Protein 6.78 mg/dl (0-0.29); Calcium 9.2 mg/dl (8.5-10.1); Creatinine Clr Calc Pharmacy 102.7 ml/min; Est GFR (African American) 111.6; Est GFR (Non-African American) 96.3; Potassium 3.4 mmol/L (3.5-5.1)
[2020-09-17 08:58] LABS: Albumin Globulin Ratio 0.5 (0.9-2); Bilirubin,Total 0.3 mg/dl (0.2-1); Globulin 4.8 gm/dl (2.5-4.0); Total Protein 7.1 gm/dl (6.4-8.2)
[2020-09-17] MEDS: cefTRIAXone SODIUM 2,000 MG in DEXTROSE 5% 50 ML IV SCH (08:59)
[2020-09-17] MEDS ORDERED: POTASSIUM CHLORIDE CRTAB 20 MEQ TABCR PO ONE (09:15)
[2020-09-17] MEDS: REMDESIVIR 100 MG in SODIUM CHLORIDE 0.9% 230 ML IV SCH (11:45)
[2020-09-17] MEDS: SODIUM CHLORIDE 0.9% 10ML FLUSH IV SCH (12:45)
--- NOTE | 2020-09-17 18:20 | Hospitalist Progress Note ---
Date of Service September 17, 2020 Assessment & Plan (1) Diabetic foot ulcers: Diabetic foot ulcers of right foot-infected, with surrounding cellulitis Outpatient culture is growing proteus mirabilis and group B beta strep. Sensitive to ceftriaxone Consulted wound care appreciated lower extremity arterial Dopplers show hemodynamically significant stenosis of the right dorsalis pedis, although he has strong pulses on examination No obvious signs of osteomyelitis on Xray. Appreciate orthopedic surgery consultation-MRI of the foot was obtained and is negative for osteomyelitis but does show soft tissue infection Vascular surgery opinion sought and recommended no intervention of the dorsalis pedis Right second toe is a sausage digit with purpleish discoloration-could have thrombi to the smaller vessels perhaps from Covid infection? No vascular intervention necessary for that BCx no growth to date CRP trending downward Foot needs debridement-plan for this Tuesday or sooner if much worse prior to them -Continue IV ceftriaxone -Leukocytosis persists but now is likely from corticosteroid use; thrombocytosis also likely secondary to reactive process to infection -Fevers have now resolved-could be from Covid versus foot infection -Follow CBC, CRP, ESR, CMP in the morning -Continue to follow blood cultures -Continue wound care dressing changes (2) Fever: Now resolved-could be secondary to foot infection versus Covid-19 infection Tylenol as needed Follow blood cultures Continue antibiotics for the foot Procalcitonin is normal at 0.3 (3) Acute kidney injury: Resolved Creatinine 1.4 upon admission, now 0.8 Outpatient med rec shows dosing of chlorthalidone to be 50 mg p.o. twice daily, have since reduced to 25 mg p.o. every morning. Repeat labs am (4) COVID-19 virus infection: Patient initially had symptoms of cough and dyspnea on exertion about 7 days prior to admission, when his was initially infected, and he had been asymptomatic He was tested here and was positive on 09/11 upon admission developed dry cough and sob as well as hypoxia on 09/14. He was requiring oxygen for pulse ox was less than 94%, with evidence of pneumonia on chest [id number] dexamethasone 6 mg IV once daily x10-day course-last dose will be 09/24 -Continue remdesivir x5-day course-last dose will be 09/19 We will hold off on convalescent plasma as no real likely benefit in ongoing studies and do not want to fluid overload him With acute respiratory failure with hypoxia-significantly improved and now weaned off oxygen Follow chest x-ray to resolution Continue Tessalon Perles for cough but change from scheduled to as needed, albuterol 2 puffs every 4 hours as needed (5) Hypokalemia: Possibly secondary to chlorthalidone-mildly low today Give potassium chloride 40 mill equivalents p.o. x1 Follow BMP (6) Hypertension: Blood pressures are controlled now with restarting losartan Continue amlodipine, aspirin, losartan Continue lower dose of chlorthalidone 25 mg once daily (7) Diabetic neuropathy: does not appear to take medication for this Is contributing to diabetic foot infection (8) Diabetes mellitus type 2, uncontrolled: Will continue on his own insulin pump With hyperglycemia secondary to dexamethasone now improved after adjustment of the pump Holding Metformin from home bsgs ac & hs He is very good at managing his pump (9) Sleep apnea: This is a suspected diagnosis but he has not had a formal sleep study yet (10) Cervical spine disease: He had a recent cervical spine fusion about 3 months ago in [place] Doing well with this and walks with a cane (11) Dyslipidemia: Continue atorvastatin (12) Acute respiratory failure with hypoxia: As above, secondary to Covid-19 pneumonia-now resolved Is now weaned off oxygen Continue dexamethasone (13) DVT prophylaxis: heparin subq, scds We will hold heparin prior to surgery Disposition-continued stay Admission and Anticipated Discharge Date Admission Date: September 13, 2020 Subjective Patient feeling very well today, minimal cough and no shortness of breath. He reports he ambulated around the [place] short distance with no shortness of breath. He has no pain in the foot and reports that during his dressing change today, his foot looked significantly better than even yesterday. He denies any chest pains or nausea. He is eating and drinking well. Blood sugars are better controlled. He remains afebrile I discussed his care with the orthopedic surgery PA Review of Systems Review of Systems: All systems reviewed & are unremarkable except as noted in HPI & below Physical Exam Constitutional: WD/WN, vitals as above + obese Eyes: + anicteric sclerae Neck: trachea midline, no thyromegaly Respiratory: normal respiratory effort Auscultation: no rhonchi and no wheezes Cardiovascular: Rate/Rhythm: regular rate and regular rhythm Heart Sounds: no murmur Extremities: + edema (Trace pitting edema of the legs right greater than left) Chest (Breasts): Chest: normal inspection of chest Gastrointestinal (Abdomen): normal bowel sounds, soft, nontender, no hepatosplenomegaly Musculoskeletal: Extremities: no cyanosis and no clubbing Skin: Wound was already redressed when I saw him-did not remove it today, no erythema above the ankle is noted Neurologic: moves all extremities and awake; no focal motor deficits Psychiatric: Orientation: alert and oriented x 3 Speech: normal rate/rhythm/volume of speech Lymphatic: no lymphedema Results & Data Results & Data ([facility]) Vital Signs (Past 12 Hours) Vital Signs Temp Pulse Pulse Resp BP BP Pulse Ox 09/17/20 15:20 36.9 C 90 16 130/70 96 09/17/20 08:18 09/17/20 07:48 37.2 C 88 16 155/87 H 96 Pulse Ox 09/17/20 15:20 09/17/20 08:18 96 09/17/20 07:48 PG Care Time/CCT Total # of Minutes Spent Total Time Spent with Patient: Total time spent is greater than 50% in coordination of care (as documented) at patient's floor/unit and/or counseling patient: Coding Level of Care Code 81490 Subseq Hosp Care Lvl 3 Diagnoses Diabetic foot ulcers E11.621; L97.509 Fever R50.9 Acute kidney injury N17.9 COVID-19 virus infection U07.1 Hypokalemia E87.6 Hypertension I10 Diabetic neuropathy E11.40 Diabetes mellitus type 2, uncontrolled E11.65 Sleep apnea G47.30 Cervical spine disease M48.9 Dyslipidemia E78.5 Acute respiratory failure with hypoxia J96.01 DVT prophylaxis Z29.9
[2020-09-17] MEDS ORDERED: BENZONATATE 100 MG CAPSULE PO PRN (21:37)
[2020-09-18] MEDS: HEPARIN SOD 5,000 UNIT/0.5 ML VIAL SQ SCH ×3 (05:53→21:12)
[2020-09-18 08:17] LABS: Basophils # (auto) 0.03 K/uL (0-0.2); Basophils % (auto) 0.2 %; Eosinophils # (auto) 0.18 K/uL (0-0.5); Hematocrit (blood only) 34.2 % (42-52); Hemoglobin 11.5 g/dL (14.0-18.0); Immature Granulocytes # (auto) 0.63 K/uL (0.00-0.02); Immature Granulocytes % (auto) 3.4 %; Lymphocytes # (auto) 3.73 K/uL (1.2-3.4); Mean Corpuscular Hemoglobin 27.5 pg (25-34); Mean Corpuscular Hgb Conc 33.6 g/dL (32-36); Mean Corpuscular Volume 81.8 fL (80-100); Monocytes # (auto) 1.24 K/uL (0.11-0.59); Monocytes % (auto) 6.6 %; Neutrophils # (auto) 12.84 K/uL (1.4-6.5); Neutrophils % (auto) 68.8 %; Nucleated RBC # (auto) 0.08 K/uL (0-0); Nucleated RBC % (auto) 0.4 %; Platelet Count 630 K/uL (130-400); RDW Standard Deviation 44.5 fL (36.4-46.3); Red Blood Count 4.18 M/uL (4.7-6.1); White Blood Count 18.65 K/uL (4.8-10.8)
[2020-09-18] MEDS: DEXAMETHASONE SOD PHOSPHATE 6 MG in SYRINGE 0 ML IV SCH (08:30)
[2020-09-18] MEDS: CYANOCOBALAMIN 500 MCG TABLET (VITAMIN B-12) PO SCH (08:32)
[2020-09-18] MEDS: LOSARTAN POTASSIUM 50 MG TAB PO SCH (08:32)
[2020-09-18] MEDS: CHOLECALCIFEROL 1,000 UNITS 25 MCG TAB PO SCH (08:32)
[2020-09-18] MEDS: ATORVASTATIN 20 MG TAB PO SCH (08:33)
[2020-09-18] MEDS: amLODIPine BESYLATE 5 MG TAB PO SCH (08:33)
[2020-09-18] MEDS: CHLORTHALIDONE 25 MG TAB PO SCH (08:34)
[2020-09-18] MEDS: ASPIRIN 81 MG ECTAB PO SCH (08:34)
[2020-09-18] MEDS: cefTRIAXone SODIUM 2,000 MG in DEXTROSE 5% 50 ML IV SCH (08:51)
[2020-09-18 08:55] LABS: Albumin Level 2.6 gm/dl (3.4-5.0); BUN Creatinine Ratio 25.7 (10-20); C Reactive Protein 4.54 mg/dl (0-0.29); Creatinine Clr Calc Pharmacy 102.7 ml/min; Est GFR (African American) 111.6; Est GFR (Non-African American) 96.3; Potassium 3.9 mmol/L (3.5-5.1)
[2020-09-18 09:02] LABS: Albumin Globulin Ratio 0.5 (0.9-2); Bilirubin,Total 0.3 mg/dl (0.2-1); Globulin 5.1 gm/dl (2.5-4.0); Total Protein 7.7 gm/dl (6.4-8.2)
[2020-09-18] MEDS: REMDESIVIR 100 MG in SODIUM CHLORIDE 0.9% 230 ML IV SCH (12:07)
[2020-09-18] MEDS: SODIUM CHLORIDE 0.9% 10ML FLUSH IV SCH (13:15)
--- NOTE | 2020-09-18 15:36 | Hospitalist Progress Note ---
Date of Service September 18, 2020 Assessment & Plan (1) Diabetic foot ulcers: Diabetic foot ulcers of right foot-infected, with surrounding cellulitis Outpatient culture is growing proteus mirabilis and group B beta strep. Sensitive to ceftriaxone Consulted wound care appreciated lower extremity arterial Dopplers show hemodynamically significant stenosis of the right dorsalis pedis, although he has strong pulses on examination No obvious signs of osteomyelitis on Xray or MRI, but does show soft tissue infection Vascular surgery opinion sought and recommended no intervention of the dorsalis pedis Right second toe is a sausage digit with purpleish discoloration-could have thrombi to the smaller vessels perhaps from Covid infection? No vascular intervention necessary for that BCx no growth to date CRP trending downward, however sed rate trending upward today to greater than 90 Foot needs debridement-plan for this Tuesday as per orthopedic surgery -Continue IV ceftriaxone -Leukocytosis persists but now is likely from corticosteroid use; thrombocytosis also likely secondary to reactive process to infection and is increasing today -Fevers have now resolved-could be from Covid versus foot infection -Follow CBC, CRP, ESR, CMP in the morning -Continue to follow blood cultures-no growth to date -Continue wound care dressing changes -N.p.o. after midnight and hold SQ heparin for surgery (2) Fever: Now resolved-could be secondary to foot infection versus Covid-19 infection Follow blood cultures Continue antibiotics for the foot Procalcitonin is normal at 0.3 (3) Acute kidney injury: Resolved Creatinine 1.4 upon admission, now 0.8 -Reduced chlorthalidone dose to 25 mg p.o. every morning. Repeat labs am (4) COVID-19 virus infection: Patient initially had symptoms of cough and dyspnea on exertion about 7 days prior to admission, when his was initially infected, and he had been asymptomatic He was tested here and was positive on 09/11 upon admission developed dry cough and sob as well as hypoxia on 09/14. He was requiring oxygen for pulse ox was less than 94%, with evidence of pneumonia on chest [id number] dexamethasone 6 mg IV once daily x 4 days but will now discontinue to ensure proper wound healing for foot surgery as he is clinically significantly improved with no further hypoxia -Continue remdesivir x5-day course-last dose will be 09/19 We will hold off on convalescent plasma as no real likely benefit in ongoing studies and do not want to fluid overload him With acute respiratory failure with hypoxia-significantly improved and now weaned off oxygen Follow chest x-ray to resolution Continue Tessalon Perles as needed for cough -Continue albuterol 2 puffs every 4 hours as needed (5) Hypokalemia: Possibly secondary to chlorthalidone-now resolved after replacement Follow BMP (6) Hypertension: Blood pressures are still mildly elevated Continue amlodipine, aspirin, losartan Continue lower dose of chlorthalidone 25 mg once daily (7) Diabetic neuropathy: does not appear to take medication for this Is contributing to diabetic foot infection (8) Diabetes mellitus type 2, uncontrolled: Will continue on his own insulin pump With hyperglycemia secondary to dexamethasone now improved after adjustment of the pump Holding Metformin from home bsgs ac & hs He is very good at managing his pump (9) Sleep apnea: This is a suspected diagnosis but he has not had a formal sleep study yet (10) Cervical spine disease: He had a recent cervical spine fusion about 3 months ago in [place] Doing well with this and walks with a cane (11) Dyslipidemia: Continue atorvastatin (12) Acute respiratory failure with hypoxia: As above, secondary to Covid-19 pneumonia-now resolved, pulse ox 98% on room air at rest Is now weaned off oxygen Discontinuing dexamethasone as above (13) Thrombocytosis: As above, platelets trending upward today to 630, likely reactive secondary to infection (14) DVT prophylaxis: heparin subq high dose but placing on hold for surgery tomorrow, scds Disposition-continued stay Admission and Anticipated Discharge Date Admission Date: September 13, 2020 Subjective Patient reports he is feeling much better today. Denies any shortness of breath or chest pain, he ambulated a little bit out in the hallways and denies lightheadedness. No nausea or vomiting. Mild cough. Pulse ox was 98% on room air when I saw him at rest. He reports no pain in the foot and thinks it looks much better. Discussed his care with the orthopedic surgery PA-the patient is on the schedule for tomorrow for foot debridement Review of Systems Review of Systems: All systems reviewed & are unremarkable except as noted in HPI & below Physical Exam Constitutional: WD/WN, vitals as above + obese Eyes: + anicteric sclerae Neck: trachea midline, no thyromegaly Respiratory: normal respiratory effort, lungs clear to auscultation Cardiovascular: Rate/Rhythm: regular rate and regular rhythm Heart Sounds: no murmur Vessels: dorsalis pedis pulses present (Has 2+ dorsalis pedis pulse on the right) Extremities: + edema (Trace pitting edema of the legs right greater than left improved from previ) Chest (Breasts): Chest: normal inspection of chest Gastrointestinal (Abdomen): normal bowel sounds, soft, nontender, no hepatosplenomegaly Musculoskeletal: Extremities: no cyanosis and no clubbing Skin: + wound (Large open ulcer on the right dorsal plantar and medial surface ) and + erythema (Right dorsal foot although significantly improved from previous) Right foot with macerated skin peeling off just proximal to the base of all the toes and on dorsal and plantar surfaces Right second toe with purplish discoloration which is improved from previous and the edema of the toe is decreased, with sloughing skin at the base Neurologic: moves all extremities and awake; no focal motor deficits Psychiatric: Orientation: alert and oriented x 3 Speech: normal rate/rhythm/volume of speech Lymphatic: no lymphedema Results & Data Results & Data ([facility]) Vital Signs (Past 12 Hours) Vital Signs Temp Pulse Resp BP Pulse Ox 09/18/20 07:12 37.1 C 94 H 16 163/77 H 96 Laboratory Results 09/18/20 09/18/20 09/18/20 Range/Units 20:43 17:10 12:02 WBC (4.8-10.8) K/uL RBC (4.7-6.1) M/uL Hgb (14.0-18.0) g/dL Hct (42-52) % MCV (80-100) fL MCH (25-34) pg MCHC (32-36) g/dL RDW Std Deviation (36.4-46.3) fL RDW Coeff of Dajuan (11.5-14.5) % Plt Count (130-400) K/uL MPV (7.4-10.4) fL Immature Gran % (Auto) % Neut % (Auto) % Lymph % (Auto) % [place] % (Auto) % Eos % (Auto) % Baso % (Auto) % Neut # (Auto) (1.4-6.5) K/uL Lymph # (Auto) (1.2-3.4) K/uL [place] # (Auto) (0.11-0.59) K/uL Eos # (Auto) (0-0.5) K/uL Baso # (Auto) (0-0.2) K/uL Immature Gran # (Auto) (0.00-0.02) K/uL Absolute Nucleated RBC (0-0) K/uL Nucleated RBC % (auto) % ESR (0-14) mm/hr Sodium (136-145) mmol/L Potassium (3.5-5.1) mmol/L Chloride (98-107) mmol/L Carbon Dioxide (21-32) mmol/L Anion Gap (3-11) BUN (7-18) mg/dl Creatinine (0.6-1.4) mg/dl Est Cr Clr Drug Dosing ml/min Est GFR ( Amer) Est GFR (Non-Af Amer) BUN/Creatinine Ratio (10-20) Glucose (70-99) mg/dl POC Glucose 129 H 189 H 151 H (70-99) mg/dl Calcium (8.5-10.1) mg/dl Total Bilirubin (0.2-1) mg/dl AST (15-37) U/L ALT (12-78) U/L Alkaline Phosphatase (45-117) U/L C-Reactive Protein (0-0.29) mg/dl Total Protein (6.4-8.2) gm/dl Albumin (3.4-5.0) gm/dl Globulin (2.5-4.0) gm/dl Albumin/Globulin Ratio (0.9-2) 09/18/20 09/18/20 09/18/20 Range/Units 08:18 07:47 07:47 WBC (4.8-10.8) K/uL RBC (4.7-6.1) M/uL Hgb (14.0-18.0) g/dL Hct (42-52) % MCV (80-100) fL MCH (25-34) pg MCHC (32-36) g/dL RDW Std Deviation (36.4-46.3) fL RDW Coeff of Dajuan (11.5-14.5) % Plt Count (130-400) K/uL MPV (7.4-10.4) fL Immature Gran % (Auto) % Neut % (Auto) % Lymph % (Auto) % [place] % (Auto) % Eos % (Auto) % Baso % (Auto) % Neut # (Auto) (1.4-6.5) K/uL Lymph # (Auto) (1.2-3.4) K/uL [place] # (Auto) (0.11-0.59) K/uL Eos # (Auto) (0-0.5) K/uL Baso # (Auto) (0-0.2) K/uL Immature Gran # (Auto) (0.00-0.02) K/uL Absolute Nucleated RBC (0-0) K/uL Nucleated RBC % (auto) % ESR > 90 H (0-14) mm/hr Sodium 139 (136-145) mmol/L Potassium 3.9 (3.5-5.1) mmol/L Chloride 106 (98-107) mmol/L Carbon Dioxide 26 (21-32) mmol/L Anion Gap 7.0 (3-11) BUN 22 H (7-18) mg/dl Creatinine 0.86 (0.6-1.4) mg/dl Est Cr Clr Drug Dosing 102.7 ml/min Est GFR ( Amer) 111.6 Est GFR (Non-Af Amer) 96.3 BUN/Creatinine Ratio 25.7 H (10-20) Glucose 101 H (70-99) mg/dl POC Glucose 106 H (70-99) mg/dl Calcium 10.0 (8.5-10.1) mg/dl Total Bilirubin 0.3 (0.2-1) mg/dl AST 30 (15-37) U/L ALT 41 (12-78) U/L Alkaline Phosphatase 125 H (45-117) U/L C-Reactive Protein 4.54 H (0-0.29) mg/dl Total Protein 7.7 (6.4-8.2) gm/dl Albumin 2.6 L (3.4-5.0) gm/dl Globulin 5.1 H (2.5-4.0) gm/dl Albumin/Globulin Ratio 0.5 L (0.9-2) 09/18/20 Range/Units 07:47 WBC 18.65 H (4.8-10.8) K/uL RBC 4.18 L (4.7-6.1) M/uL Hgb 11.5 L (14.0-18.0) g/dL Hct 34.2 L (42-52) % MCV 81.8 (80-100) fL MCH 27.5 (25-34) pg MCHC 33.6 (32-36) g/dL RDW Std Deviation 44.5 (36.4-46.3) fL RDW Coeff of Dajuan 15.0 H (11.5-14.5) % Plt Count 630 H (130-400) K/uL MPV 10.0 (7.4-10.4) fL Immature Gran % (Auto) 3.4 % Neut % (Auto) 68.8 % Lymph % (Auto) 20.0 % [place] % (Auto) 6.6 % Eos % (Auto) 1.0 % Baso % (Auto) 0.2 % Neut # (Auto) 12.84 H (1.4-6.5) K/uL Lymph # (Auto) 3.73 H (1.2-3.4) K/uL [place] # (Auto) 1.24 H (0.11-0.59) K/uL Eos # (Auto) 0.18 (0-0.5) K/uL Baso # (Auto) 0.03 (0-0.2) K/uL Immature Gran # (Auto) 0.63 H (0.00-0.02) K/uL Absolute Nucleated RBC 0.08 H (0-0) K/uL Nucleated RBC % (auto) 0.4 % ESR (0-14) mm/hr Sodium (136-145) mmol/L Potassium (3.5-5.1) mmol/L Chloride (98-107) mmol/L Carbon Dioxide (21-32) mmol/L Anion Gap (3-11) BUN (7-18) mg/dl Creatinine (0.6-1.4) mg/dl Est Cr Clr Drug Dosing ml/min Est GFR ( Amer) Est GFR (Non-Af Amer) BUN/Creatinine Ratio (10-20) Glucose (70-99) mg/dl POC Glucose (70-99) mg/dl Calcium (8.5-10.1) mg/dl Total Bilirubin (0.2-1) mg/dl AST (15-37) U/L ALT (12-78) U/L Alkaline Phosphatase (45-117) U/L C-Reactive Protein (0-0.29) mg/dl Total Protein (6.4-8.2) gm/dl Albumin (3.4-5.0) gm/dl Globulin (2.5-4.0) gm/dl Albumin/Globulin Ratio (0.9-2) PG Care Time/CCT Total # of Minutes Spent Total Time Spent with Patient: Total time spent is greater than 50% in coordination of care (as documented) at patient's floor/unit and/or counseling patient: Coding Level of Care Code 68490 Subseq Hosp Care Lvl 3 Diagnoses Diabetic foot ulcers E11.621; L97.509 Fever R50.9 Acute kidney injury N17.9 COVID-19 virus infection U07.1 Hypokalemia E87.6 Hypertension I10 Diabetic neuropathy E11.40 Diabetes mellitus type 2, uncontrolled E11.65 Sleep apnea G47.30 Cervical spine disease M48.9 Dyslipidemia E78.5 Acute respiratory failure with hypoxia J96.01 Thrombocytosis D47.3 DVT prophylaxis Z29.9
--- NOTE | 2020-09-18 17:08 | Anesthesiology Consultation ---
Date of Service September 18, 2020 The patient is Covid 19 positive so will need to have surgery in OR [address] Jones was made aware of the patient. Assessment & Plan (1) Encounter for pre-operative examination: Chart Review Chart Review: Acceptable Risk for Surgery and Patient NOT seen in Pre Admission Testing Consults Requested none History Surgery Operation Date: 09/19/20 07:00 Proposed Procedures p Right Great Toe Incision and Drainage / 1st Metatarsal Plantar Ulcer - Andre Patton DO Height/Weight Height: 5 ft 4 in Weight: 102.7 kg Allergies Allergy/AdvReac Type Severity Reaction Status Date / Time animal dander Allergy Congested Verified 09/13/20 23:14 lisinopril AdvReac Mild COUGH Verified 09/13/20 23:14 Medications Home Medications Medication Instructions Recorded Confirmed Last Taken aspirin 81 mg tablet,delayed 81 mg PO DAILY tab 05/09/19 09/13/20 Unknown release cholecalciferol (vitamin D3) 25 2,000 units PO DAILY cap 05/09/19 09/13/20 Unknown mcg (1,000 unit) capsule cyanocobalamin (vitamin B-12) 1,000 mcg PO DAILY tab 05/09/19 09/13/20 Unknown 1,000 mcg tablet insulin lispro 100 unit/mL 120 units CONTINUOUS SUBCUTANEOUS 05/09/19 09/13/20 Unknown subcutaneous solution INFUSION UD #11 ml Humalog U-100 Insulin 100 unit/mL 120 units CONTINUOUS SUBCUTANEOUS 11/23/19 09/13/20 Unknown subcutaneous solution INFUSION .COMPLEX 90 Days #11 vial NS amlodipine 10 mg tablet 10 mg PO DAILY #90 tab 02/08/20 09/13/20 Unknown atorvastatin 20 mg tablet 20 mg PO ONCE #90 tab 02/08/20 09/13/20 Unknown metformin 1,000 mg tablet 1,000 mg PO BID #180 tab 02/08/20 09/13/20 Unknown tramadol 50 mg tablet 50 mg PO Q4H PRN #180 tab 07/02/20 09/13/20 Unknown acetaminophen 325 mg capsule 325 mg PO QID PRN 08/04/20 09/13/20 Unknown chlorthalidone 25 mg tablet 50 mg PO BID #90 tab 08/20/20 09/13/20 Unknown diclofenac sodium 1 % topical gel 2 g TOPICAL QID #100 g 08/20/20 09/13/20 Unknown cyclobenzaprine 5 mg tablet See Rx Instructions PO DAILY PRN 08/25/20 09/13/20 Unknown #45 tab losartan 100 mg tablet 50 mg PO DAILY #90 tab 08/25/20 09/13/20 Unknown albuterol sulfate 90 mcg/actuation 2 puff INHALATION 6XD PRN #8.5 g 09/11/20 09/13/20 Unknown aerosol inhaler amoxicillin 875 mg-potassium 1 tab PO BID #20 tab 09/12/20 09/13/20 Unknown clavulanate 125 mg tablet benzonatate 100 mg capsule 100 mg PO TID #30 cap 09/13/20 09/13/20 Unknown methylprednisolone 4 mg tablets in See Rx Instructions .ROUTE 09/13/20 09/13/20 Unknown a dose pack .COMPLEX #21 ea Active Medications Generic Name Dose Route Start Last Admin Trade Name Freq PRN Reason Stop Dose Admin Acetaminophen 650 mg 09/14/20 01:11 09/15/20 16:03 Acetaminophen 325 Mg Tab PO 10/14/20 01:10 650 mg Q4H PRN Administration pain/fever Albuterol 2 puffs 09/16/20 13:15 09/16/20 20:58 Albuterol Hfa 8 Gm Inhaler INH 10/14/20 08:14 2 puffs Q4H PRN Administration Shortness Of Breath Or Wheezing Amlodipine Besylate 10 mg 09/14/20 09:00 09/18/20 08:33 Amlodipine Besylate 5 Mg Tab PO 10/14/20 08:59 10 mg DAILY PALMER Administration Aspirin 81 mg 09/14/20 09:00 09/18/20 08:34 Aspirin 81 Mg Ectab PO 10/14/20 08:59 81 mg DAILY PALMER Administration Atorvastatin Calcium 20 mg 09/16/20 09:00 09/18/20 08:33 Atorvastatin 20 Mg Tab PO 10/16/20 08:59 20 mg QAM PALMER Administration Chlorthalidone 25 mg 09/14/20 09:00 09/18/20 08:34 Chlorthalidone 25 Mg Tab PO 10/14/20 08:59 25 mg QAM PALMER Administration Cyanocobalamin 1,000 mcg 09/14/20 09:00 09/18/20 08:32 Cyanocobalamin 500 Mcg Tablet (Vitamin B-12) PO 10/14/20 08:59 1,000 mcg DAILY PALMER Administration Heparin Sodium (Porcine) 7,500 units 09/14/20 22:00 09/18/20 14:20 Heparin Sod 5,000 Unit/0.5 Ml Vial SQ 10/14/20 21:59 7,500 units Q8 PALMER Administration Ceftriaxone Sodium 2,000 mg/ 70 mls @ 140 mls/hr 09/15/20 10:45 09/18/20 09:21 Dextrose IV 09/22/20 10:44 Infused DAILY PALMER Infusion Dexamethasone Sodium Phosphate 1.5 mls @ 1 mls/min 09/15/20 11:15 09/18/20 08:30 6 mg/ Syringe IV 10/15/20 11:14 1 mls/min QAM PALMER Administration Remdesivir 100 mg/ Sodium 250 mls @ 250 mls/hr 09/16/20 12:00 09/18/20 13:15 Chloride IV 09/19/20 12:59 Infused Q24H PALMER Infusion Protocol Losartan Potassium 50 mg 09/17/20 09:00 09/18/20 08:32 Losartan Potassium 50 Mg Tab PO 10/17/20 08:59 50 mg QAM PALMER Administration Menthol 1 alicia 09/14/20 20:01 09/14/20 20:09 Cough Drop (Sugar Free) Alicia 24 Alicia/1 Box BUCCAL 10/14/20 20:00 1 alicia PRN PRN Administration Cough Sodium Chloride 30 ml 09/15/20 16:30 09/18/20 13:15 Sodium Chloride 0.9% 10ml Flush IV 09/19/20 16:31 30 ml Q24H PALMER Administration Vitamin D 2,000 units 09/14/20 09:00 09/18/20 08:32 Cholecalciferol 1,000 Units 25 Mcg Tab PO 10/14/20 08:59 2,000 units DAILY PALMER Administration Past Medical History Medical History Diabetes mellitus type 2, uncontrolled Diabetic neuropathy Dyslipidemia History of TIA (transient ischemic attack) Hypertension Malignant neoplasm prostate Obesity Sleep apnea Spastic quadriplegia Stage 1 chronic kidney disease Past Family History Family History Mother Breast cancer Diabetes Father Myocardial infarction Kidney disease Diabetes Grandfather Diabetes Denies family history of Ovarian cancer Prostate cancer Colorectal cancer Past Surgical History Surgical History History of ankle surgery History of cataract surgery History of prostate biopsy History of tonsillectomy Hx of cervical spine surgery Social History Smoking Status: Never smoker Do You Dip or Chew Tobacco: No Hx Alcohol Use: No Hx Substance Use: No Physical Exam Vital Signs Last Vital Signs Temp 36.9 C 09/18/20 16:02 Pulse 85 09/18/20 16:02 Resp 16 09/18/20 16:02 BP 156/77 H 09/18/20 16:02 Pulse Ox 97 09/18/20 16:02 Testing Laboratory Results 09/18/20 07:47 09/18/20 07:47 09/13/20 22:27 Aerobic Blood Culture - Preliminary Blood No growth in Aerobic bottle after 48 hours. Anaerobic Blood Culture - Preliminary No growth in Anaerobic bottle after 48 hours. 09/13/20 22:27 Aerobic Blood Culture - Preliminary Blood No growth in Aerobic bottle after 48 hours. Anaerobic Blood Culture - Preliminary No growth in Anaerobic bottle after 48 hours. 09/18/20 09/18/20 09/18/20 17:10 12:02 08:18 POC Glucose 189 H 151 H 106 H Electrocardiogram Date: 05/27/20 Findings: + NSST changes and + ST @ (108) Chest X-Ray Date: 09/13/20 SINGLE VIEW CHEST CLINICAL HISTORY: Covid. Right foot infection. FINDINGS: An AP, portable, upright chest radiograph is compared to study dated 11/28/2015. The examination is degraded by portable technique and apical lordotic positioning. The heart is enlarged. The pulmonary vasculature is noncongested. There are mild hazy interstitial opacities seen bilaterally. Scarring/atelectasis is noted in the left lower lung. No large pleural effusion or pneumothorax is seen. The skeletal structures are osteopenic. There are healed left-sided rib fractures. Arthritic change is noted in the shoulders. IMPRESSION: 1. Cardiomegaly with no radiographic evidence of congestive failure. 2. There are mild hazy interstitial airspace opacities seen bilaterally. Correlate clinically for evidence of an infectious/inflammatory pneumonitis. ACT 112: Negative or not required by law. Electronically signed by: Marlon Douglas M.D. 09/13/2020 10:47 PM Dictated: 09/13/20 [id number]
[2020-09-19 07:44] LABS: Hematocrit (blood only) 37.9 % (42-52); Hemoglobin 12.2 g/dL (14.0-18.0); Mean Corpuscular Hemoglobin 26.8 pg (25-34); Mean Corpuscular Hgb Conc 32.2 g/dL (32-36); Mean Corpuscular Volume 83.1 fL (80-100); Mean Platelet Volume 10.4 fL (7.4-10.4); Nucleated RBC # (auto) 0.13 K/uL (0-0); Nucleated RBC % (auto) 0.6 %; Platelet Count 652 K/uL (130-400); RDW Coefficient of Variation 14.9 % (11.5-14.5); RDW Standard Deviation 44.2 fL (36.4-46.3); Red Blood Count 4.56 M/uL (4.7-6.1); White Blood Count 20.54 K/uL (4.8-10.8)
[2020-09-19 08:12] LABS: Albumin Level 2.6 gm/dl (3.4-5.0); BUN Creatinine Ratio 23.5 (10-20); C Reactive Protein 2.82 mg/dl (0-0.29); Calcium 9.9 mg/dl (8.5-10.1); Creatinine Clr Calc Pharmacy 94.9 ml/min; Est GFR (African American) 105.2; Est GFR (Non-African American) 90.8
[2020-09-19 08:14] LABS: Albumin Globulin Ratio 0.5 (0.9-2); Bilirubin,Total 0.3 mg/dl (0.2-1); Globulin 5.1 gm/dl (2.5-4.0); Total Protein 7.7 gm/dl (6.4-8.2)
[2020-09-19 08:18] LABS: Basophils # (auto) 0.09 K/uL (0-0.2); Basophils % (auto) 0.4 %; Eosinophils # (auto) 0.26 K/uL (0-0.5); Eosinophils % (auto) 1.3 %; Immature Granulocytes # (auto) 1.02 K/uL (0.00-0.02); Lymphocytes # (auto) 4.22 K/uL (1.2-3.4); Lymphocytes % (auto) 20.5 %; Monocytes # (auto) 1.41 K/uL (0.11-0.59); Monocytes % (auto) 6.9 %; Neutrophils # (auto) 13.54 K/uL (1.4-6.5); Neutrophils % (auto) 65.9 %
[2020-09-19] MEDS ORDERED: hydrALAZINE HCL 20 MG/ML VIAL IV STA (08:54)
[2020-09-19] MEDS: ASPIRIN 81 MG ECTAB PO SCH (09:23)
[2020-09-19] MEDS: CHOLECALCIFEROL 1,000 UNITS 25 MCG TAB PO SCH (09:23)
[2020-09-19] MEDS: CYANOCOBALAMIN 500 MCG TABLET (VITAMIN B-12) PO SCH (09:23)
[2020-09-19] MEDS: CHLORTHALIDONE 25 MG TAB PO SCH (09:23)
[2020-09-19] MEDS: ATORVASTATIN 20 MG TAB PO SCH ×2 (09:23→20:31)
[2020-09-19] MEDS: LOSARTAN POTASSIUM 50 MG TAB PO SCH (09:24)
[2020-09-19] MEDS: amLODIPine BESYLATE 5 MG TAB PO SCH (09:24)
[2020-09-19] MEDS: cefTRIAXone SODIUM 2,000 MG in DEXTROSE 5% 50 ML IV SCH (09:31)
[2020-09-19] MEDS: REMDESIVIR 100 MG in SODIUM CHLORIDE 0.9% 230 ML IV SCH (12:15)
[2020-09-19] MEDS ORDERED: D5W AND NSS 1,000 ML IV SCH (13:30)
--- NOTE | 2020-09-19 13:31 | Hospitalist Progress Note ---
Date of Service September 19, 2020 Assessment & Plan (1) Diabetic foot ulcers: Diabetic foot ulcers of right foot-infected, with abscess formation, with surrounding cellulitis Outpatient culture is growing proteus mirabilis and group B beta strep. Sensitive to ceftriaxone Consulted wound care appreciated lower extremity arterial Dopplers show hemodynamically significant stenosis of the right dorsalis pedis, although he has strong pulses on examination No obvious signs of osteomyelitis on Xray or MRI, but does show soft tissue infection Vascular surgery opinion sought and recommended no intervention of the dorsalis pedis Right second toe is a sausage digit with purpleish discoloration-could have thrombi to the smaller vessels perhaps from Covid infection? No vascular intervention necessary for that BCx no growth to date CRP and ESR trending downward Foot debridement-scheduled for today by orthopedic surgery -Continue IV ceftriaxone -Leukocytosis persists but now is likely from corticosteroid use; thrombocytosis also likely secondary to reactive process to infection and is increasing today -Fevers have now resolved-could have been from Covid but most likely secondary to significant foot infection -Follow CBC, CRP, ESR, BMP in the morning -Continue to follow blood cultures-no growth to date -Continue wound care dressing changes -He is not having much pain at this point due to his neuropathy so no pain medicine needed (2) Fever: Now resolved-most likely secondary to foot infection versus Covid-19 infection Follow blood cultures Continue antibiotics for the foot Procalcitonin is normal at 0.3 (3) Acute kidney injury: Resolved Creatinine 1.4 upon admission, now 0.8 -Reduced chlorthalidone dose to 25 mg p.o. every morning. Repeat labs am (4) COVID-19 virus infection: Patient initially had symptoms of cough and dyspnea on exertion on 09/04 and his had been hospitalized for Covid-19 He was tested here and was positive on 09/11 upon admission developed dry cough and sob as well as hypoxia on 09/14. He was requiring oxygen for pulse ox was less than 94%, with evidence of pneumonia on chest [id number] dexamethasone 6 mg IV once daily x 4 days but then discontinued to ensure proper wound healing for foot surgery as he is clinically significantly improved with no further hypoxia -He completed a 5-day course of remdesivir We will hold off on convalescent plasma as no real likely benefit in ongoing studies and do not want to fluid overload him With acute respiratory failure with hypoxia-significantly improved and now w eaned off oxygen Follow chest x-ray to resolution as an outpatient Continue Tessalon Perles as needed for cough -Continue albuterol 2 puffs every 4 hours as needed (5) Hypokalemia: Possibly secondary to chlorthalidone-now resolved after replacement Follow BMP (6) Hypertension: Blood pressures are significantly elevated today, possibly due to anxiety while awaiting surgery Continue amlodipine 10 mg daily, aspirin, and will increase home dose of losartan up to 100 mg daily Continue lower dose of chlorthalidone 25 mg once daily due to hypokalemia -Add as needed hydralazine 10 mg every 8 hours for SBP greater than 180 (7) Diabetic neuropathy: does not appear to take medication for this Is contributing to diabetic foot infection (8) Diabetes mellitus type 2, uncontrolled: Will continue on his own insulin pump With hyperglycemia secondary to dexamethasone now improved after adjustment of the pump Holding Metformin from home bsgs ac & hs He is very good at managing his pump Blood sugar only 120 and was n.p.o. all day for surgery with basal insulin from pump-add D5 normal saline at 80 mL's per hour until surgery Fluids can be stopped after that once taking p.o. again (9) Sleep apnea: This is a suspected diagnosis but he has not had a formal sleep study yet (10) Cervical spine disease: He had a recent cervical spine fusion about 3 months ago in [place] Doing well with this and walks with a cane (11) Dyslipidemia: Continue atorvastatin (12) Acute respiratory failure with hypoxia: As above, secondary to Covid-19 pneumonia-now resolved, pulse ox 98% on room air at rest Is now weaned off oxygen Discontinued dexamethasone as above (13) Thrombocytosis: As above, platelets trending upward today to 652, likely reactive secondary to infection (14) DVT prophylaxis: heparin subq high dose but placed on hold for surgery today, scds Restart SQ heparin soon as possible once okay with orthopedic surgery Disposition-continued stay likely through Tuesday or Tuesday, but will be okay to return to home with home health Admission and Anticipated Discharge Date Admission Date: September 13, 2020 Subjective Patient awaiting surgery at the time I saw him today. Blood pressures were quite elevated. He was feeling hungry. Blood sugar was about 120 and I started D5 until surgery commenced. He denied chest pain or shortness of breath, no cough. No nausea or vomiting, no abdominal pain. Remains afebrile and pulse ox is excellent on room air. Review of Systems Review of Systems: All systems reviewed & are unremarkable except as noted in HPI & below Physical Exam Constitutional: WD/WN, vitals as above + obese Eyes: + anicteric sclerae Neck: trachea midline, no thyromegaly Respiratory: normal respiratory effort, lungs clear to auscultation Cardiovascular: Rate/Rhythm: regular rate and regular rhythm Heart Sounds: no murmur Gastrointestinal (Abdomen): normal bowel sounds, soft, nontender, no hepatosplenomegaly Musculoskeletal: Extremities: no cyanosis and no clubbing Skin: Dressing not removed to look at foot today Neurologic: moves all extremities and awake; no focal motor deficits Psychiatric: Orientation: alert and oriented x 3 Speech: normal rate/rhythm/volume of speech Lymphatic: no lymphedema Results & Data Results & Data ([facility]) Vital Signs (Past 12 Hours) Vital Signs Temp Pulse Pulse Resp BP BP Pulse Ox 09/19/20 11:18 160/81 H 09/19/20 08:37 37.2 C 93 H 18 203/99 H 96 09/19/20 05:00 95 H 174/77 H 174/77 H 09/19/20 03:31 178/75 H Laboratory Results 09/19/20 09/19/20 09/19/20 Range/Units 20:15 17:34 12:14 WBC (4.8-10.8) K/uL RBC (4.7-6.1) M/uL Hgb (14.0-18.0) g/dL Hct (42-52) % MCV (80-100) fL MCH (25-34) pg MCHC (32-36) g/dL RDW Std Deviation (36.4-46.3) fL RDW Coeff of Dajuan (11.5-14.5) % Plt Count (130-400) K/uL MPV (7.4-10.4) fL Immature Gran % (Auto) % Neut % (Auto) % Lymph % (Auto) % [place] % (Auto) % Eos % (Auto) % Baso % (Auto) % Neut # (Auto) (1.4-6.5) K/uL Lymph # (Auto) (1.2-3.4) K/uL [place] # (Auto) (0.11-0.59) K/uL Eos # (Auto) (0-0.5) K/uL Baso # (Auto) (0-0.2) K/uL Immature Gran # (Auto) (0.00-0.02) K/uL Absolute Nucleated RBC (0-0) K/uL Nucleated RBC % (auto) % ESR (0-14) mm/hr Sodium (136-145) mmol/L Potassium (3.5-5.1) mmol/L Chloride (98-107) mmol/L Carbon Dioxide (21-32) mmol/L Anion Gap (3-11) BUN (7-18) mg/dl Creatinine (0.6-1.4) mg/dl Est Cr Clr Drug Dosing ml/min Est GFR ( Amer) Est GFR (Non-Af Amer) BUN/Creatinine Ratio (10-20) Glucose (70-99) mg/dl POC Glucose 120 H 115 H 125 H (70-99) mg/dl Calcium (8.5-10.1) mg/dl Total Bilirubin (0.2-1) mg/dl AST (15-37) U/L ALT (12-78) U/L Alkaline Phosphatase (45-117) U/L C-Reactive Protein (0-0.29) mg/dl Total Protein (6.4-8.2) gm/dl Albumin (3.4-5.0) gm/dl Globulin (2.5-4.0) gm/dl Albumin/Globulin Ratio (0.9-2) 09/19/20 09/19/20 09/19/20 Range/Units 06:07 06:07 06:07 WBC 20.54 H (4.8-10.8) K/uL RBC 4.56 L (4.7-6.1) M/uL Hgb 12.2 L (14.0-18.0) g/dL Hct 37.9 L (42-52) % MCV 83.1 (80-100) fL MCH 26.8 (25-34) pg MCHC 32.2 (32-36) g/dL RDW Std Deviation 44.2 (36.4-46.3) fL RDW Coeff of Dajuan 14.9 H (11.5-14.5) % Plt Count 652 H (130-400) K/uL MPV 10.4 (7.4-10.4) fL Immature Gran % (Auto) 5.0 % Neut % (Auto) 65.9 % Lymph % (Auto) 20.5 % [place] % (Auto) 6.9 % Eos % (Auto) 1.3 % Baso % (Auto) 0.4 % Neut # (Auto) 13.54 H (1.4-6.5) K/uL Lymph # (Auto) 4.22 H (1.2-3.4) K/uL [place] # (Auto) 1.41 H (0.11-0.59) K/uL Eos # (Auto) 0.26 (0-0.5) K/uL Baso # (Auto) 0.09 (0-0.2) K/uL Immature Gran # (Auto) 1.02 H (0.00-0.02) K/uL Absolute Nucleated RBC 0.13 H (0-0) K/uL Nucleated RBC % (auto) 0.6 % ESR 81 H (0-14) mm/hr Sodium 138 (136-145) mmol/L Potassium 4.0 (3.5-5.1) mmol/L Chloride 104 (98-107) mmol/L Carbon Dioxide 26 (21-32) mmol/L Anion Gap 8.0 (3-11) BUN 22 H (7-18) mg/dl Creatinine 0.93 (0.6-1.4) mg/dl Est Cr Clr Drug Dosing 94.9 ml/min Est GFR ( Amer) 105.2 Est GFR (Non-Af Amer) 90.8 BUN/Creatinine Ratio 23.5 H (10-20) Glucose 177 H (70-99) mg/dl POC Glucose (70-99) mg/dl Calcium 9.9 (8.5-10.1) mg/dl Total Bilirubin 0.3 (0.2-1) mg/dl AST 35 (15-37) U/L ALT 52 (12-78) U/L Alkaline Phosphatase 130 H (45-117) U/L C-Reactive Protein 2.82 H (0-0.29) mg/dl Total Protein 7.7 (6.4-8.2) gm/dl Albumin 2.6 L (3.4-5.0) gm/dl Globulin 5.1 H (2.5-4.0) gm/dl Albumin/Globulin Ratio 0.5 L (0.9-2) 09/19/20 Range/Units 05:55 WBC (4.8-10.8) K/uL RBC (4.7-6.1) M/uL Hgb (14.0-18.0) g/dL Hct (42-52) % MCV (80-100) fL MCH (25-34) pg MCHC (32-36) g/dL RDW Std Deviation (36.4-46.3) fL RDW Coeff of Dajuan (11.5-14.5) % Plt Count (130-400) K/uL MPV (7.4-10.4) fL Immature Gran % (Auto) % Neut % (Auto) % Lymph % (Auto) % [place] % (Auto) % Eos % (Auto) % Baso % (Auto) % Neut # (Auto) (1.4-6.5) K/uL Lymph # (Auto) (1.2-3.4) K/uL [place] # (Auto) (0.11-0.59) K/uL Eos # (Auto) (0-0.5) K/uL Baso # (Auto) (0-0.2) K/uL Immature Gran # (Auto) (0.00-0.02) K/uL Absolute Nucleated RBC (0-0) K/uL Nucleated RBC % (auto) % ESR (0-14) mm/hr Sodium (136-145) mmol/L Potassium (3.5-5.1) mmol/L Chloride (98-107) mmol/L Carbon Dioxide (21-32) mmol/L Anion Gap (3-11) BUN (7-18) mg/dl Creatinine (0.6-1.4) mg/dl Est Cr Clr Drug Dosing ml/min Est GFR ( Amer) Est GFR (Non-Af Amer) BUN/Creatinine Ratio (10-20) Glucose (70-99) mg/dl POC Glucose 175 H (70-99) mg/dl Calcium (8.5-10.1) mg/dl Total Bilirubin (0.2-1) mg/dl AST (15-37) U/L ALT (12-78) U/L Alkaline Phosphatase (45-117) U/L C-Reactive Protein (0-0.29) mg/dl Total Protein (6.4-8.2) gm/dl Albumin (3.4-5.0) gm/dl Globulin (2.5-4.0) gm/dl Albumin/Globulin Ratio (0.9-2) PG Care Time/CCT Total # of Minutes Spent Total Time Spent with Patient: Total time spent is greater than 50% in coordination of care (as documented) at patient's floor/unit and/or counseling patient: Coding Level of Care Code 51526 Subseq Hosp Care Lvl 3 Diagnoses Diabetic foot ulcers E11.621; L97.509 Fever R50.9 Acute kidney injury N17.9 COVID-19 virus infection U07.1 Hypokalemia E87.6 Hypertension I10 Diabetic neuropathy E11.40 Diabetes mellitus type 2, uncontrolled E11.65 Sleep apnea G47.30 Cervical spine disease M48.9 Dyslipidemia E78.5 Acute respiratory failure with hypoxia J96.01 Thrombocytosis D47.3 DVT prophylaxis Z29.9
[2020-09-19] MEDS: SODIUM CHLORIDE 0.9% 10ML FLUSH IV SCH (13:32)
[2020-09-19] MEDS ORDERED: BACITRACIN INJ 50,000 UNIT VIAL ONE (14:56)
[2020-09-19] MEDS ORDERED: BUPIVACAINE 0.5 % 5 MG/1 ML MPF 30ML VIAL ONE (14:56)
[2020-09-19] MEDS ORDERED: fentaNYL citrate 100 MCG/2 ML VIAL ONE ×2 (15:34→15:35)
[2020-09-19] MEDS ORDERED: KETAMINE 50 MG/5 ML SYRINGE ONE (15:34)
[2020-09-19] MEDS ORDERED: MIDAZOLAM HCL 1 MG/ML 2ML VIAL ONE (15:34)
[2020-09-19] MEDS ORDERED: ePHEDrine sulfate 50 MG/ML AMP IV PRN (16:37)
[2020-09-19] MEDS ORDERED: ATROPINE SULFATE 0.1 MG/ML 10ML SYR IV PRN (16:37)
--- NOTE | 2020-09-19 16:37 | Anesthesiology Consultation ---
Date of Service September 19, 2020 Assessment & Plan (1) Encounter for pre-operative examination: Chart Review Chart Review: Acceptable Risk for Surgery and Patient NOT seen in Pre Admission Testing Consults Requested none ASA ASA3 Proposed Anesthesia Anesthesia Type: MAC Risk / Benefits Reviewed With: PT / POA / Parent / Guardian, Accepts Plan and In formed Consent Obtained Additional Comments: Medical history lists patient as a spastic quad. He is NOT a spastic quad, and does have motor function of all 4 extremities. He does have severe bilateral lower extremity sensory neuropathy. History Surgery Operation Date: 09/19/20 07:00 Proposed Procedures p Right Great Toe Incision and Drainage / 1st Metatarsal Plantar Ulcer - Anrde Patton DO Height/Weight Height: 5 ft 4 in Weight: 102.7 kg Allergies Allergy/AdvReac Type Severity Reaction Status Date / Time animal dander Allergy Congested Verified 09/13/20 23:14 lisinopril AdvReac Mild COUGH Verified 09/13/20 23:14 Medications Home Medications Medication Instructions Recorded Confirmed Last Taken aspirin 81 mg tablet,delayed 81 mg PO DAILY tab 05/09/19 09/13/20 Unknown release cholecalciferol (vitamin D3) 25 2,000 units PO DAILY cap 05/09/19 09/13/20 Unknown mcg (1,000 unit) capsule cyanocobalamin (vitamin B-12) 1,000 mcg PO DAILY tab 05/09/19 09/13/20 Unknown 1,000 mcg tablet insulin lispro 100 unit/mL 120 units CONTINUOUS SUBCUTANEOUS 05/09/19 09/13/20 Unknown subcutaneous solution INFUSION UD #11 ml Humalog U-100 Insulin 100 unit/mL 120 units CONTINUOUS SUBCUTANEOUS 11/23/19 09/13/20 Unknown subcutaneous solution INFUSION .COMPLEX 90 Days #11 vial NS amlodipine 10 mg tablet 10 mg PO DAILY #90 tab 02/08/20 09/13/20 Unknown atorvastatin 20 mg tablet 20 mg PO ONCE #90 tab 02/08/20 09/13/20 Unknown metformin 1,000 mg tablet 1,000 mg PO BID #180 tab 02/08/20 09/13/20 Unknown tramadol 50 mg tablet 50 mg PO Q4H PRN #180 tab 07/02/20 09/13/20 Unknown acetaminophen 325 mg capsule 325 mg PO QID PRN 08/04/20 09/13/20 Unknown chlorthalidone 25 mg tablet 50 mg PO BID #90 tab 08/20/20 09/13/20 Unknown diclofenac sodium 1 % topical gel 2 g TOPICAL QID #100 g 08/20/20 09/13/20 Unknown cyclobenzaprine 5 mg tablet See Rx Instructions PO DAILY PRN 08/25/20 09/13/20 Unknown #45 tab losartan 100 mg tablet 50 mg PO DAILY #90 tab 08/25/20 09/13/20 Unknown albuterol sulfate 90 mcg/actuation 2 puff INHALATION 6XD PRN #8.5 g 09/11/20 09/13/20 Unknown aerosol inhaler amoxicillin 875 mg-potassium 1 tab PO BID #20 tab 09/12/20 09/13/20 Unknown clavulanate 125 mg tablet benzonatate 100 mg capsule 100 mg PO TID #30 cap 09/13/20 09/13/20 Unknown methylprednisolone 4 mg tablets in See Rx Instructions .ROUTE 09/13/20 09/13/20 Unknown a dose pack .COMPLEX #21 ea Active Medications Generic Name Dose Route Start Last Admin Trade Name Freq PRN Reason Stop Dose Admin Acetaminophen 650 mg 09/14/20 01:11 09/15/20 16:03 Acetaminophen 325 Mg Tab PO 10/14/20 01:10 650 mg Q4H PRN Administration pain/fever Albuterol 2 puffs 09/16/20 13:15 09/16/20 20:58 Albuterol Hfa 8 Gm Inhaler INH 10/14/20 08:14 2 puffs Q4H PRN Administration Shortness Of Breath Or Wheezing Amlodipine Besylate 10 mg 09/14/20 09:00 09/19/20 09:24 Amlodipine Besylate 5 Mg Tab PO 10/14/20 08:59 10 mg DAILY PALMER Administration Aspirin 81 mg 09/14/20 09:00 09/19/20 09:23 Aspirin 81 Mg Ectab PO 10/14/20 08:59 Not Given DAILY PALMER Atorvastatin Calcium 20 mg 09/16/20 09:00 09/19/20 09:23 Atorvastatin 20 Mg Tab PO 10/16/20 08:59 Not Given QAM PALMER Chlorthalidone 25 mg 09/14/20 09:00 09/19/20 09:23 Chlorthalidone 25 Mg Tab PO 10/14/20 08:59 Not Given QAM PALMER Cyanocobalamin 1,000 mcg 09/14/20 09:00 09/19/20 09:23 Cyanocobalamin 500 Mcg Tablet (Vitamin B-12) PO 10/14/20 08:59 Not Given DAILY PALMER Heparin Sodium (Porcine) 7,500 units 09/14/20 22:00 09/18/20 21:12 Heparin Sod 5,000 Unit/0.5 Ml Vial SQ 10/14/20 21:59 7,500 units Q8 PALMER Administration Ceftriaxone Sodium 2,000 mg/ 70 mls @ 140 mls/hr 09/15/20 10:45 09/19/20 10:01 Dextrose IV 09/22/20 10:44 Infused DAILY PALMER Infusion Dextrose/Sodium Chloride 1,000 mls @ 80 mls/hr 09/19/20 13:30 09/19/20 15:18 D5w And Nss IV 10/19/20 13:29 0 mls/hr .[id number] PALMER Infusion Losartan Potassium 50 mg 09/17/20 09:00 09/19/20 09:24 Losartan Potassium 50 Mg Tab PO 10/17/20 08:59 50 mg QAM PALMER Administration Menthol 1 alicia 09/14/20 20:01 09/14/20 20:09 Cough Drop (Sugar Free) Alicia 24 Alicia/1 Box BUCCAL 10/14/20 20:00 1 alicia PRN PRN Administration Cough Vitamin D 2,000 units 09/14/20 09:00 09/19/20 09:23 Cholecalciferol 1,000 Units 25 Mcg Tab PO 10/14/20 08:59 Not Given DAILY PALMER NPO Date Last Intake of Fluids: 09/19/20 Time Last Intake of Fluids: 07:00 Last Intake of Fluids Comment: small sip of water with morning meds Date Last Intake of Solids: 09/18/20 Time Last Intake of Solids: 23:30 Last Intake of Solids Comment: cheese and crackers Past Medical History Medical History Diabetes mellitus type 2, uncontrolled Diabetic neuropathy Dyslipidemia History of TIA (transient ischemic attack) Hypertension Malignant neoplasm prostate Obesity Sleep apnea Spastic quadriplegia Stage 1 chronic kidney disease Exercise / Class Metabolic Activity III < 4 Walking/Shop/Light housework Past Family History Family History Mother Breast cancer Diabetes Father Myocardial infarction Kidney disease Diabetes Grandfather Diabetes Denies family history of Ovarian cancer Prostate cancer Colorectal cancer Past Surgical History Surgical History History of ankle surgery History of cataract surgery History of prostate biopsy History of tonsillectomy Hx of cervical spine surgery Past Anesthesia History No Hx of Anesthesia Complications and No Family Hx of Anesthesia Complications History of PONV No Hx of PONV and No Hx of Motion Sickness Social History Smoking Status: Never smoker Do You Dip or Chew Tobacco: No Hx Alcohol Use: No Hx Substance Use: No Physical Exam Vital Signs Last Vital Signs Temp 37.2 C 09/19/20 08:37 Pulse 93 H 09/19/20 08:37 Resp 18 09/19/20 08:37 BP 160/81 H 09/19/20 11:18 Pulse Ox 96 09/19/20 08:37 Constitutional + obese ENMT Mouth: no dentition abnormality Thyromental Distance: > or= 3.5 Finger Breadths Mallampati Class: II Neck normal visual inspection Respiratory normal respiratory effort Auscultation: lungs clear to auscultation bilaterally Cardiovascular Rate/Rhythm: regular rate and regular rhythm Psychiatric Orientation: alert Testing Laboratory Results 09/19/20 06:07 09/19/20 06:07 09/13/20 22:27 Aerobic Blood Culture - Final Blood No growth in Aerobic bottle after 5 days. Anaerobic Blood Culture - Final No growth in Anaerobic bottle after 5 days. 09/13/20 22:27 Aerobic Blood Culture - Final Blood No growth in Aerobic bottle after 5 days. Anaerobic Blood Culture - Final No growth in Anaerobic bottle after 5 days. 09/19/20 09/19/20 12:14 05:55 POC Glucose 125 H 175 H Electrocardiogram Date: 05/27/20 Findings: + NSST changes and + ST @ (108) Chest X-Ray Date: 09/13/20 SINGLE VIEW CHEST CLINICAL HISTORY: Covid. Right foot infection. FINDINGS: An AP, portable, upright chest radiograph is compared to study dated 11/28/2015. The examination is degraded by portable technique and apical lordotic positioning. The heart is enlarged. The pulmonary vasculature is noncongested. There are mild hazy interstitial opacities seen bilaterally. Scarring/atelectasis is noted in the left lower lung. No large pleural effusion or pneumothorax is seen. The skeletal structures are osteopenic. There are healed left-sided rib fractures. Arthritic change is noted in the shoulders. IMPRESSION: 1. Cardiomegaly with no radiographic evidence of congestive failure. 2. There are mild hazy interstitial airspace opacities seen bilaterally. Correlate clinically for evidence of an infectious/inflammatory pneumonitis. ACT 112: Negative or not required by law. Electronically signed by: Marlon Douglas M.D. 09/13/2020 10:47 PM Dictated: 09/13/20 [id number]
[2020-09-19] MEDS ORDERED: bisacodyL 10 MG SUPP PR PRN (17:53)
[2020-09-19] MEDS ORDERED: MAGNESIUM HYDROXIDE SUSP 30 ML UDC PO PRN (17:53)
[2020-09-19] MEDS ORDERED: HYDROmorphone INJ 0.5 MG/0.5 ML SYR IV PRN (17:53)
[2020-09-19] MEDS ORDERED: SODIUM CHLORIDE 0.9% 1000ML 1,000 ML IV SCH (17:53)
[2020-09-19] MEDS ORDERED: NALOXONE HCL 0.4 MG/1 ML VIAL/CARP IV PRN (17:53)
[2020-09-19] MEDS ORDERED: oxyCODONE HCL IR 5 MG TAB (IMMEDIATE RELEASE) PO PRN (17:53)
--- NOTE | 2020-09-19 18:03 | History & Physical Bridge Note ---
Date of Service September 19, 2020 History & Physical Bridge Note I have examined the patient, reviewed the History & Physical and in the interval since the performance of the History & Physical I have noted the following changes of clinical significance: Patient will require incision and drainage of abscess right foot, evacuation of phlegmon, irrigation and debridement deep necrotic tissue and slough right first MTP and second toe.
--- NOTE | 2020-09-19 18:15 | Post Operative Brief Note ---
Immediate Post Op Note v1 Date of Surgery September 19, 2020 Pre & Post Diagnosis Operation Date: 09/19/20 07:00 Pre-Op Diagnosis: Plantar first MTP DIABETIC FOOT ULCER, abscess right forefoot, deep infection right foot, phlegmon right foot, abscess second toe, COVID-19 positive. Post-Op Diagnosis: Plantar first MTP DIABETIC FOOT ULCER (13 mm x 13 mm x 10 mm), abscess right forefoot, tenosynovitis second toe extensor tendon, deep infection right foot, phlegmon right foot, abscess second toe proximal interphalangeal joint, abscess second toe metatarsal phalangeal joint, COVID-19 positive. I identified the patient and participated in the time-out.: Yes Procedure Operation Date: 09/19/20 07:00 Actual Procedures p Right foot incision and drainage abscess great toe 1st metatarsophalangeal joint. Evacuation abscess 2nd toe proximal interphalangeal joint and 2nd metatarsophalangeal joint. Irrigation and debridement neuropathic ulcer [id number]. Irrigation debridement great toe-skin, fascia, subcutaneous, joint capsule, extensor great toe. Removal phlegmon right foot. Tenosynovectomy 2nd toe. (Right) - Andre Patton DO Surgeon Andre Patton DO Circulator None Estimated Blood Loss 2 Findings Consistent with Post-Op Diagnosis Specimens Aerobic anaerobic Gram stain abscess/phlegmon right forefoot Drains Other (Multiple 1/2 inch iodoform gauze drains) Anesthesia Type MAC Regional Complications none Disposition Accompanied Patient To Recovery: No Disposition: PCU (Coronavirus unit)
--- NOTE | 2020-09-19 19:03 | Anesthesiology Progress Note ---
Date of Service September 19, 2020 Anesthesia Post Procedure Vital Signs Vital Signs: Temp Pulse Pulse Resp BP BP Pulse Ox 09/19/20 11:18 160/81 H 09/19/20 08:37 37.2 C 93 H 18 203/99 H 96 09/19/20 05:00 95 H 174/77 H 174/77 H 09/19/20 03:31 178/75 H 09/19/20 00:44 182/82 H 09/18/20 23:40 37.0 C 83 18 171/78 H 188/90 H 97 Transfer of Care Handoff Completed per policy Notes Mental Status: alert / awake / arousable Patient Amnestic to Procedure: Yes Nausea / Vomiting: adequately controlled Pain: adequately controlled Airway Patency, RR, SpO2: stable & adequate BP & HR: stable & adequate Hydration State: stable & adequate Anesthetic Complications: no major complications apparent
--- NOTE | 2020-09-19 22:11 | Operative Report (OR) ---
DATE OF OPERATION: 09/19/2020 PREOPERATIVE DIAGNOSES: Right foot plantar diabetic neuropathic foot ulcer measuring 13 x 13 x 10 mm, deep abscess, right forefoot, phlegmon right foot/great toe, abscess second toe, COVID-19 positive patient. POSTOPERATIVE DIAGNOSES: 1. Right foot plantar diabetic neuropathic foot ulcer 13 x 13 x 10 mm. 2. Abscess, right forefoot deep. 3. Abscess, second toe metatarsophalangeal joint. 4. Abscess, right second toe proximal interphalangeal joint. 5. Tenosynovitis second toe extensor tendon. 6. Phlegmon right foot/great toe. 7. COVID-19 positive patient. PROCEDURES: 1. Right foot incision and drainage deep abscess, great toe first metatarsophalangeal joint, evacuation abscess second toe proximal interphalangeal joint. 2. Evacuation abscess second metatarsophalangeal joint. 3. Irrigation and debridement, diabetic neuropathic ulcer measuring 13 x 13 x 10 mm. 4. Irrigation and debridement great toe first MTP region including skin, fascia, subcutaneous tissue, joint capsule and extensor great toe. 5. Removal of phlegmon right foot/great toe. 6. Tenosynovectomy of the second toe extensor tendon. SURGEON: Andre Patton DO HOUSING INSTALLER: None. ANESTHESIA: MAC regional. SPECIMENS: Aerobic, anaerobic, Gram stain from the abscess, phlegmon, right forefoot/great toe. DRAINS: Multiple 1/2 inch iodoform gauze drains. COMPLICATIONS: None. BLOOD LOSS: 2 mL PERTINENT HISTORY: This is a 59-year-old gentleman with a complicated medical history who is helping to care for his who was COVID-19 positive. His then returned home and she noted blood on the floor. She inspected the patient's foot, noted to have bleeding ulcer from the plantar aspect of his right foot with severe swelling. They attempted conservative management with assistance from their primary care physician. Eventually seen in the Emergency Department with large amount of erythema around the forefoot as well as COVID-19 symptoms. He is admitted to the hospital, quarantined to the COVID-19 floor as the patient tested positive for COVID-19. Seen in consultation, MRI and radiographs were obtained. Continue IV antibiotics and failed, noted to have a deep infection, he was then scheduled for surgery as indicated. All potential risks, benefits, complications, alternatives, rehab potential for incomplete relief of symptoms, need for further surgery, DVT, PE, , persistent pain, swelling, scarring, weakness, neurovascular injury, wound complications, or amputation was discussed with the patient. The patient decided to proceed with the procedure as indicated. DESCRIPTION OF PROCEDURE: The patient was taken directly to designated [facility] operative suite. All preoperative paperwork and discussion was performed with the patient in full personal protective equipment. This included N95 mask with a cover mask and face shield, top plastic gown and gloves. The consent process was performed at this time, site was marked and then bridge note was completed. The patient was then sedated and right lower extremity was then sterilely prepped and draped in usual fashion, elevated and partially exsanguinated from the heel extending proximally and a 4-inch Esmarch bandage was applied over sterile surgical towel at the level of the ankle. There was no pneumatic tourniquet used during the case. The 15 blade scalpel was used to make an incision along the plantar aspect of the plantar foot ulcer measuring 13 x 13 x 10 mm. Necrotic tissue and debris was then sharply excised including skin, subcutaneous tissue, fascia, plantar joint capsule. There is a sinus tract that tracked dorsally and then extended both medial and lateral to the ulcer, 1 limb of the sinus went to the phlegmon which was noted to be adjacent to the medial first MTP joint. A rongeur was then used to resect this alone and there is local abscess. This was cultured for aerobic, anaerobic, Gram stain. This was tunneled under the tissue. Next, a secondary incision was made over the medial first metatarsophalangeal joint with 15 blade scalpel was deepened through the skin and slough. The sinus tract noted to extend along the medial aspect of the first metatarsophalangeal joint capsule to the level of the extensor. There was no evidence of full fledged septic tenosynovitis, there was some local infection did involve the extensor tendon of the great toe, it was debrided with a 15 blade scalpel and a rongeur. It did not appear to spread proximal or distal. Next, the soft tissue was debrided sharply with a 15 blade scalpel and a rongeur. After grossly devitalized tissue was resected then another incision was made along the medial second metatarsophalangeal joint and the site of tissue destruction. This revealed an abscess, which had formed adjacent to the metatarsophalangeal joint. This was then incised and drained. Next, a rongeur was then used to debride any devitalized local tissue. Next, the medial proximal interphalangeal joint noted to have a small area of tissue necrosis under the skin. This was incised with 15 blade scalpel, was noted to be an abscess collection. This was then evacuated with a rongeur. After devitalized tissue and abscess was resected, a dorsal incision was made over the second toe over the PIP extending over the MTP joint and extending proximally over the second extensor was noted to be significant extensor tendon involvement including tenosynovitis septic in nature. This tendon was then debrided with a 15 blade scalpel and a rongeur resecting all areas of infected tenosynovitis. Next, the pulsatile lavage was then used to copiously lavage all incisions made in the right foot including the first metatarsophalangeal region, the plantar ulcer, the second toe dorsally and the PIP joint and the MTP joint of the second toe. Three liters in total with bacitracin and pulsatile lavage was then performed cleansing all tissue with markedly improvement. Skin slough had been sharply excised with 15 blade scalpel, particularly around the great toe and second toe and the forefoot. There was dusky character of the second plantar toe; however, the toe did appear viable at this time, particularly after resection of the slough obscuring visualization. Does have some degree of cerulean hue. Next, top gloves and instruments were changed and the 1/2 inch iodoform gauze drains were then cut and placed along the medial first MTP into the plantar ulcer at the base of the great toe into the dorsal second ray and then both medial and lateral of the second MTP and second PIP joint regions respectively. Next, an incision was made on the medial first MTP and dorsal second toe were then loosely approximated with interrupted 4-0 nylon sutures in a horizontal mattress pattern. Finally, a sterile lightly compressive dressing was applied consisting of Xeroform gauze, sterile 4 x 4s, ABD pads x2, cast padding and Robson wrap was applied after a partial ankle block was performed approximately 30 mL of 0.5% Marcaine plain. The tourniquet was released. The patient was awakened and taken to recovery in stable condition. I attest to the content of the Intraoperative Record and any orders documented therein. Any exception s are noted below.
[2020-09-19] MEDS: traMADol HCL 50 MG TABLET PO PRN (23:44)
[2020-09-19] MEDS ORDERED: hydrALAZINE HCL 20 MG/ML VIAL IV PRN (23:50)
--- NOTE | 2020-09-20 06:03 | Electrocardiogram Report ---
Test Reason : Blood Pressure : / mmHG Vent. Rate : 086 BPM Atrial Rate : 086 BPM P-R Int : 130 ms QRS Dur : 086 ms QT Int : 390 ms P-R-T Axes : 053 062 060 degrees QTc Int : 466 ms Normal sinus rhythm Normal ECG No previous ECGs available Confirmed by Marshall Hatch ([id number]) on 09/20/2020 6:03:14 AM Referred By: Bee Tellez Confirmed By:Marshall Hatch
[2020-09-20] MEDS: traMADol HCL 50 MG TABLET PO PRN ×2 (06:11→21:38)
[2020-09-20 06:55] LABS: Basophils # (auto) 0.04 K/uL (0-0.2); Basophils % (auto) 0.2 %; Eosinophils # (auto) 0.37 K/uL (0-0.5); Eosinophils % (auto) 1.8 %; Hematocrit (blood only) 37.9 % (42-52); Hemoglobin 12.2 g/dL (14.0-18.0); Immature Granulocytes # (auto) 0.81 K/uL (0.00-0.02); Lymphocytes # (auto) 3.59 K/uL (1.2-3.4); Lymphocytes % (auto) 17.7 %; Mean Corpuscular Hemoglobin 26.8 pg (25-34); Mean Corpuscular Hgb Conc 32.2 g/dL (32-36); Mean Corpuscular Volume 83.3 fL (80-100); Mean Platelet Volume 9.7 fL (7.4-10.4); Monocytes # (auto) 1.26 K/uL (0.11-0.59); Monocytes % (auto) 6.2 %; Neutrophils # (auto) 14.25 K/uL (1.4-6.5); Neutrophils % (auto) 70.1 %; Platelet Count 641 K/uL (130-400); RDW Coefficient of Variation 15.1 % (11.5-14.5); RDW Standard Deviation 45.1 fL (36.4-46.3); Red Blood Count 4.55 M/uL (4.7-6.1); White Blood Count 20.32 K/uL (4.8-10.8)
[2020-09-20 07:24] LABS: C Reactive Protein 2.19 mg/dl (0-0.29); Calcium 9.1 mg/dl (8.5-10.1); Creatinine Clr Calc Pharmacy 103.9 ml/min; Est GFR (African American) 112.1; Est GFR (Non-African American) 96.7; Potassium 4.2 mmol/L (3.5-5.1)
[2020-09-20] MEDS: MULTIVITAMIN TAB PO SCH (08:24)
[2020-09-20] MEDS: CYANOCOBALAMIN 500 MCG TABLET (VITAMIN B-12) PO SCH (08:25)
[2020-09-20] MEDS: CHLORTHALIDONE 25 MG TAB PO SCH (08:25)
[2020-09-20] MEDS: amLODIPine BESYLATE 5 MG TAB PO SCH (08:25)
[2020-09-20] MEDS: ATORVASTATIN 20 MG TAB PO SCH ×2 (08:25→21:39)
[2020-09-20] MEDS: CHOLECALCIFEROL 1,000 UNITS 25 MCG TAB PO SCH (08:25)
[2020-09-20] MEDS: ASPIRIN 81 MG ECTAB PO SCH (08:25)
[2020-09-20] MEDS: LOSARTAN POTASSIUM 50 MG TAB PO SCH (08:26)
[2020-09-20] MEDS: cefTRIAXone SODIUM 2,000 MG in DEXTROSE 5% 50 ML IV SCH (08:27)
--- NOTE | 2020-09-20 16:34 | Hospitalist Progress Note ---
Date of Service September 20, 2020 Assessment & Plan (1) Diabetic foot ulcers: Diabetic foot ulcers of right foot-infected, with abscess formation, with surrounding cellulitis Outpatient culture is growing proteus mirabilis and group B beta strep. Sensitive to ceftriaxone Consulted wound care appreciated lower extremity arterial Dopplers show hemodynamically significant stenosis of the right dorsalis pedis, although he has strong pulses on examination No obvious signs of osteomyelitis on Xray or MRI, but does show soft tissue infection Vascular surgery opinion sought and recommended no intervention of the dorsalis pedis Right second toe is a sausage digit with purplish discoloration-could have thrombi to the smaller vessels perhaps from Covid infection? No vascular intervention necessary for that BCx no growth to date CRP and ESR trending downward Foot debridement- done on 09/19 -Continue IV ceftriaxone, likely plan for home IV antibiotics and then PO antibiotics -Leukocytosis persists but now is likely from corticosteroid use; thrombocytosis also likely secondary to reactive process to infection and is increasing today -Fevers have now resolved-could have been from Covid but most likely secondary to significant foot infection -Continue to follow blood cultures-no growth to date -Continue wound care dressing changes -He is not having much pain at this point due to his neuropathy so no pain medicine needed will discuss with ortho tomorrow about discharge plans, antibiotic coverage and follow up (2) Fever: Now resolved-most likely secondary to foot infection versus Covid-19 infection Follow blood cultures, NG to date Continue antibiotics for the foot Procalcitonin is normal at 0.3 (3) Acute kidney injury: Resolved Creatinine 1.4 upon admission, now 0.8 -Reduced chlorthalidone dose to 25 mg p.o. every morning. (4) COVID-19 virus infection: Patient initially had symptoms of cough and dyspnea on exertion on 09/04 and his had been hospitalized for Covid-19 He was tested here and was positive on 09/11 upon admission developed dry cough and sob as well as hypoxia on 09/14. He was requiring oxygen for pulse ox was less than 94%, with evidence of pneumonia on chest [id number] dexamethasone 6 mg IV once daily x 4 days but then discontinued to ensure proper wound healing for foot surgery as he is clinically significantly improved with no further hypoxia -He completed a 5-day course of remdesivir no indication for convalescent plasma With acute respiratory failure with hypoxia-significantly improved and now weaned off oxygen Follow chest x-ray to resolution as an outpatient Continue Tessalon Perles as needed for cough -Continue albuterol 2 puffs every 4 hours as needed (5) Hypokalemia: Possibly secondary to chlorthalidone-now resolved after replacement Follow BMP (6) Hypertension: Blood pressures elevated at times Continue amlodipine 10 mg daily, aspirin, increased home dose of losartan up to 100 mg daily on 09/19 Continue lower dose of chlorthalidone 25 mg once daily due to hypokalemia -Add as needed hydralazine 10 mg every 8 hours for SBP greater than 180 monitor response (7) Diabetic neuropathy: does not appear to take medication for this Is contributing to diabetic foot infection (8) Diabetes mellitus type 2, uncontrolled: Will continue on his own insulin pump With hyperglycemia secondary to dexamethasone now improved after adjustment of the pump Holding Metformin from home bsgs ac & hs He is very good at managing his pump Blood sugar only 120 and was n.p.o. all day for surgery with basal insulin from pump-add D5 normal saline at 80 mL's per hour until surgery Fluids can be stopped after that once taking p.o. again (9) Sleep apnea: This is a suspected diagnosis but he has not had a formal sleep study yet (10) Cervical spine disease: He had a recent cervical spine fusion about 3 months ago in [place] Doing well with this and walks with a cane (11) Dyslipidemia: Continue atorvastatin (12) Acute respiratory failure with hypoxia: As above, secondary to Covid-19 pneumonia-now resolved, pulse ox 98% on room air at rest Is now weaned off oxygen Discontinued dexamethasone as above (13) Thrombocytosis: As above, platelets trending upward today to 652, likely reactive secondary to infection (14) DVT prophylaxis: heparin subq high dose but placed on hold for surgery today, scds Restart SQ heparin soon as possible once okay with orthopedic surgery Disposition-continued stay likely through Tuesday or Tuesday, but will be okay to return to home with home health Admission and Anticipated Discharge Date Admission Date: September 13, 2020 Subjective patient says he feels great, minimal pain in right foot he is walking independently with a boot and cane he is eating well, sugars well managed he mentioned that orthopedics thought he was almost ready for discharge discussed that we can set up for home IV antibiotics tomorrow, will d/w ortho about duration he has no fever, no dyspnea, no cough, no chest pain, no signs/symptoms of COVID infection reviewed chart, reviewed most recent labs, reviewed original cultures from 09/12 Review of Systems Review of Systems: All systems reviewed & are unremarkable except as noted in Subjective Physical Exam Constitutional: WD/WN, vitals as above no acute distress Neck: trachea midline, no thyromegaly Respiratory: normal respiratory effort, lungs clear to auscultation Cardiovascular: RRR, no murmur, no edema Gastrointestinal (Abdomen): normal bowel sounds, soft, nontender, no hepatosplenomegaly Musculoskeletal: no cyanosis or clubbing, extremities motor strength 5/5 Skin: + wound (right foot, dressed) Neurologic: patellar DTR's 2+ bilat, sensation intact and PERRL, EOMI, accommodation nl, no face palsy, no dysarthria Psychiatric: A+Ox3, euthymic affect Lymphatic: no cervical or axillary lymphadenopathy Results & Data Results & Data ([facility]) Vital Signs (Past 12 Hours) Vital Signs Temp Pulse Resp BP BP Pulse Ox Pulse Ox 09/20/20 16:11 37.3 C 94 H 16 135/73 97 09/20/20 12:55 36.5 C 98 H 16 112/68 99 09/20/20 08:01 37.0 C 94 H 18 147/72 H 96 09/20/20 07:15 96 Laboratory Results Laboratory Results - last 24 hr 09/19/20 09/19/20 09/20/20 17:34 20:15 06:15 WBC 20.32 H RBC 4.55 L Hgb 12.2 L Hct 37.9 L MCV 83.3 MCH 26.8 MCHC 32.2 RDW Std Deviation 45.1 RDW Coeff of Dajuan 15.1 H Plt Count 641 H MPV 9.7 Immature Gran % (Auto) 4.0 Neut % (Auto) 70.1 Lymph % (Auto) 17.7 Mcintosh % (Auto) 6.2 Eos % (Auto) 1.8 Baso % (Auto) 0.2 Neut # (Auto) 14.25 H Lymph # (Auto) 3.59 H Mcintosh # (Auto) 1.26 H Eos # (Auto) 0.37 Baso # (Auto) 0.04 Immature Gran # (Auto) 0.81 H ESR Sodium Potassium Chloride Carbon Dioxide Anion Gap BUN Creatinine Est Cr Clr Drug Dosing Est GFR ( Amer) Est GFR (Non-Af Amer) BUN/Creatinine Ratio Glucose POC Glucose 115 H 120 H Calcium C-Reactive Protein 09/20/20 09/20/20 09/20/20 06:15 06:15 08:07 WBC RBC Hgb Hct MCV MCH MCHC RDW Std Deviation RDW Coeff of Dajuan Plt Count MPV Immature Gran % (Auto) Neut % (Auto) Lymph % (Auto) Mcintosh % (Auto) Eos % (Auto) Baso % (Auto) Neut # (Auto) Lymph # (Auto) Mcintosh # (Auto) Eos # (Auto) Baso # (Auto) Immature Gran # (Auto) ESR 82 H Sodium 134 L Potassium 4.2 Chloride 102 Carbon Dioxide 28 Anion Gap 4.0 BUN 18 Creatinine 0.85 Est Cr Clr Drug Dosing 103.9 Est GFR ( Amer) 112.1 Est GFR (Non-Af Amer) 96.7 BUN/Creatinine Ratio 21.0 H Glucose 126 H POC Glucose 114 H Calcium 9.1 C-Reactive Protein 2.19 H 09/20/20 12:16 WBC RBC Hgb Hct MCV MCH MCHC RDW Std Deviation RDW Coeff of Dajuan Plt Count MPV Immature Gran % (Auto) Neut % (Auto) Lymph % (Auto) Mcintosh % (Auto) Eos % (Auto) Baso % (Auto) Neut # (Auto) Lymph # (Auto) Mcintosh # (Auto) Eos # (Auto) Baso # (Auto) Immature Gran # (Auto) ESR Sodium Potassium Chloride Carbon Dioxide Anion Gap BUN Creatinine Est Cr Clr Drug Dosing Est GFR ( Amer) Est GFR (Non-Af Amer) BUN/Creatinine Ratio Glucose POC Glucose 101 H Calcium C-Reactive Protein Medications Administered Current Inpatient Medications Acetaminophen (Acetaminophen 325 Mg Tab) 650 mg PO Q4H PRN PRN Reason: pain/fever Stop: 10/14/20 01:10 Last Admin: 09/15/20 16:03 Dose: 650 mg Documented by: Albuterol (Albuterol Hfa 8 Gm Inhaler) 2 puffs INH Q4H PRN PRN Reason: Shortness Of Breath Or Wheezing Stop: 10/14/20 08:14 Last Admin: 09/16/20 20:58 Dose: 2 puffs Documented by: Amlodipine Besylate (Amlodipine Besylate 5 Mg Tab) 10 mg PO DAILY [facility] Stop: 10/14/20 08:59 Last Admin: 09/20/20 08:25 Dose: 10 mg Documented by: Aspirin (Aspirin 81 Mg Ectab) 81 mg PO DAILY [facility] Stop: 10/14/20 08:59 Last Admin: 09/20/20 08:25 Dose: 81 mg Documented by: Atorvastatin Calcium (Atorvastatin 20 Mg Tab) 20 mg PO QPM [facility] Stop: 10/14/20 20:59 Last Admin: 09/19/20 20:31 Dose: 20 mg Documented by: Atorvastatin Calcium (Atorvastatin 20 Mg Tab) 20 mg PO QAM [facility] Stop: 10/16/20 08:59 Last Admin: 09/20/20 08:25 Dose: 20 mg Documented by: Benzonatate (Benzonatate 100 Mg Capsule) 100 mg PO TID PRN PRN Reason: Cough Stop: 10/14/20 08:59 Bisacodyl (Bisacodyl 10 Mg Supp) 10 mg ND DAILY PRN PRN Reason: Constipation Stop: 10/19/20 17:52 Chlorthalidone (Chlorthalidone 25 Mg Tab) 25 mg PO QAM [facility] Stop: 10/14/20 08:59 Last Admin: 09/20/20 08:25 Dose: 25 mg Documented by: Cyanocobalamin (Cyanocobalamin 500 Mcg Tablet (Vitamin B-12)) 1,000 mcg PO DAILY [facility] Stop: 10/14/20 08:59 Last Admin: 09/20/20 08:25 Dose: 1,000 mcg Documented by: Cyclobenzaprine HCl (Cyclobenzaprine Hcl 5 Mg Tab) 2.5 mg PO DAILY PRN PRN Reason: muscle spasm Stop: 10/14/20 01:10 Dextrose (Dextrose 50% 50 Ml Syringe) 25 - 50 ml IV UD PRN; Protocol PRN Reason: Hypoglycemia Protocol Stop: 10/14/20 14:14 Glucagon (Glucagon For Inj 1 Mg Vial) 1 mg SQ UD PRN; Protocol PRN Reason: Hypoglycemia Protocol Stop: 10/14/20 14:14 Glucose (Glucose 40% Gel 15 Gm Tube) 15 - 30 gm PO UD PRN; Protocol PRN Reason: Hypoglycemia Protocol Stop: 10/14/20 14:14 Glucose (Glucose 10 Tabs/Tube) 4 - 8 tabs PO UD PRN; Protocol PRN Reason: Hypoglycemia Protocol Stop: 10/14/20 14:14 Heparin Sodium (Porcine) (Heparin Sod 5,000 Unit/0.5 Ml Vial) 7,500 units SQ Q8 [facility] Stop: 10/14/20 21:59 Last Admin: 09/18/20 21:12 Dose: 7,500 units Documented by: Hydralazine HCl (Hydralazine Hcl 20 Mg/Ml Vial) 10 mg IV Q8H PRN PRN Reason: SBP>180 Stop: 10/19/20 23:49 Hydromorphone HCl (Hydromorphone Inj 0.5 Mg/0.5 Ml Syr) 0.5 mg IV Q4H PRN PRN Reason: Pain or Pre PT Stop: 10/03/20 17:52 Ceftriaxone Sodium 2,000 mg/ (Dextrose) 70 mls @ 140 mls/hr IV DAILY [facility] Stop: 09/22/20 10:44 Last Infusion: 09/20/20 08:53 Dose: Infused Documented by: Insulin Human Lispro (Humalog Insulin Pump) 1 ea N/A UD [facility] Stop: 10/14/20 14:14 Insulin Human Lispro (Insulin Human Lispro (Humalog) 100 Units/Ml Vial) 0 units SC PRN PRN PRN Reason: PUMP REFILL Stop: 10/14/20 14:14 Losartan Potassium (Losartan Potassium 50 Mg Tab) [facility] Stop: 10/20/20 08:59 Last Admin: 09/20/20 08:26 Dose: 100 mg Documented by: Magnesium Hydroxide (Magnesium Hydroxide Susp 30 Ml Udc) 30 ml PO Q6H PRN PRN Reason: Constipation Stop: 10/19/20 17:52 Menthol (Cough Drop (Sugar Free) Alicia 24 Alicia/1 Box) 1 alicia BUCCAL PRN PRN PRN Reason: Cough Stop: 10/14/20 20:00 Last Admin: 09/14/20 20:09 Dose: 1 alicia Documented by: Miscellaneous (Carbohydrates For Hypoglycemia ) 15 - 30 gm PO UD PRN PRN Reason: Hypoglycemia Treatment Stop: 10/14/20 14:14 Multivitamins (Multivitamin Tab) 1 tab PO QAM [facility] Stop: 10/20/20 08:59 Last Admin: 09/20/20 08:24 Dose: 1 tab Documented by: Naloxone HCl (Naloxone Hcl 0.4 Mg/1 Ml Vial/Carp) 0.1 mg IV Q5M PRN PRN Reason: Oversedation/Resp Depression Stop: 10/19/20 17:52 Ondansetron HCl (Ondansetron Inj 2 Mg/Ml 2 Ml Vial) 4 mg IV Q6H PRN PRN Reason: Nausea Stop: 10/14/20 01:10 Oxycodone HCl (Oxycodone Hcl Ir 5 Mg Tab (Immediate Release)) 5 - 10 mg PO Q4H PRN PRN Reason: Pain or Pre PT Stop: 10/03/20 17:52 Tramadol HCl (Tramadol Hcl 50 Mg Tablet) 50 mg PO Q4H PRN PRN Reason: Moderate Pain Stop: 10/14/20 01:10 Last Admin: 09/20/20 06:11 Dose: 50 mg Documented by: Vitamin D (Cholecalciferol 1,000 Units 25 Mcg Tab) 2,000 units PO DAILY [facility] Stop: 10/14/20 08:59 Last Admin: 09/20/20 08:25 Dose: 2,000 units Documented by: PG Care Time/CCT Total # of Minutes Spent Total Time Spent with Patient: Total time spent is greater than 50% in coordination of care (as documented) at patient's floor/unit and/or counseling patient: Coding Level of Care Code 30907 Subseq Hosp Care Lvl 2 Diagnoses Diabetic foot ulcers E11.621; L97.509 Fever R50.9 Acute kidney injury N17.9 COVID-19 virus infection U07.1 Hypokalemia E87.6 Hypertension I10 Diabetic neuropathy E11.40 Diabetes mellitus type 2, uncontrolled E11.65 Sleep apnea G47.30 Cervical spine disease M48.9 Dyslipidemia E78.5 Acute respiratory failure with hypoxia J96.01 Thrombocytosis D47.3 DVT prophylaxis Z29.9
[2020-09-21] MEDS: CYANOCOBALAMIN 500 MCG TABLET (VITAMIN B-12) PO SCH (08:12)
[2020-09-21] MEDS: amLODIPine BESYLATE 5 MG TAB PO SCH (08:12)
[2020-09-21] MEDS: MULTIVITAMIN TAB PO SCH (08:13)
[2020-09-21] MEDS: CHOLECALCIFEROL 1,000 UNITS 25 MCG TAB PO SCH (08:13)
[2020-09-21] MEDS: ASPIRIN 81 MG ECTAB PO SCH (08:13)
[2020-09-21] MEDS: LOSARTAN POTASSIUM 50 MG TAB PO SCH (08:13)
[2020-09-21] MEDS: ATORVASTATIN 20 MG TAB PO SCH (08:14)
[2020-09-21] MEDS: CHLORTHALIDONE 25 MG TAB PO SCH (08:14)
[2020-09-21] MEDS: cefTRIAXone SODIUM 2,000 MG in DEXTROSE 5% 50 ML IV SCH (08:14)
[2020-09-21 09:54] LABS: Basophils # (auto) 0.03 K/uL (0-0.2); Basophils % (auto) 0.2 %; Eosinophils % (auto) 2.7 %; Hematocrit (blood only) 37.9 % (42-52); Hemoglobin 12.5 g/dL (14.0-18.0); Immature Granulocytes % (auto) 4.1 %; Lymphocytes # (auto) 3.28 K/uL (1.2-3.4); Lymphocytes % (auto) 22.5 %; Mean Corpuscular Hemoglobin 27.4 pg (25-34); Mean Corpuscular Volume 83.1 fL (80-100); Mean Platelet Volume 9.8 fL (7.4-10.4); Monocytes # (auto) 0.96 K/uL (0.11-0.59); Monocytes % (auto) 6.6 %; Neutrophils % (auto) 63.9 %; Platelet Count 673 K/uL (130-400); RDW Coefficient of Variation 15.7 % (11.5-14.5); Red Blood Count 4.56 M/uL (4.7-6.1); White Blood Count 14.57 K/uL (4.8-10.8)
--- NOTE | 2020-09-21 10:12 | Orthopedic Progress Note ---
Date of Service September 21, 2020 Assessment & Plan (1) Diabetic foot infection: 1. Right foot incision and drainage deep abscess, great toe first metatarsophalangeal joint, evacuation abscess second toe proximal interphalangeal joint. 2. Evacuation abscess second metatarsophalangeal joint. 3. Irrigation and debridement, diabetic neuropathic ulcer measuring 13 x 13 x 10 mm. 4. Irrigation and debridement great toe first MTP region including skin, fascia, subcutaneous tissue, joint capsule and extensor great toe. 5. Removal of phlegmon right foot/great toe. 6. Tenosynovectomy of the second toe extensor tendon. NWB right Lower extremity. Continue boot while up. Continue antibiotics as appropriate. Patient is aware to call [phone] when discharged to discuss f/u appt and dressing changes. Discussed with Dr. Layne. Dr. Patton recommends 2 weeks of IV abx and then 4 weeks of po abx. Can be d/c'd once arrangements have been made. Admission and Anticipated Discharge Date Admission Date: September 13, 2020 Subjective POD#2 Patient resting in bed. He notes foot feels better. Physical Exam Physical Exam: Packing pulled today. No significant erythema. No active drainage. Gangrene to 2nd toe. Swelling reduced. calves soft, non tender Results & Data ([facility]) Vital Signs (Past 12 Hours) Vital Signs Temp Pulse Resp BP Pulse Ox 09/21/20 07:28 36.8 C 92 H 18 173/82 H 95 09/20/20 23:10 37.2 C 105 H 18 153/83 H 97
[2020-09-21 10:16] LABS: BUN Creatinine Ratio 23.4 (10-20); Calcium 9.3 mg/dl (8.5-10.1); Creatinine Clr Calc Pharmacy 93.9 ml/min; Est GFR (African American) 103.9; Est GFR (Non-African American) 89.6
--- NOTE | 2020-09-21 14:08 | Discharge Summary ---
Date of Service September 21, 2020 Admission HPI Per Admitting Provider The patient is a 59-year-old male with a past medical history including sleep apnea, obesity, prostate cancer, hypertension, dyslipidemia, diabetic neuropathy, uncontrolled diabetes mellitus on insulin pump, excessive daytime sleepiness, hypertension, cervical spine disease, spastic quadriplegia, TIA, peripheral neuropathy, erectile dysfunction, proteinuria, proliferative diabetic retinopathy and vitamin D deficiency. His had been admitted to the hospital for COVID-19 virus infection, and he was tested on 09/11 and was positive for COVID-19 infection. He denies any symptoms related to COVID-19 infection at this time including shortness of breath, cough, dyspnea exertion, loss of taste or smell. He is primarily here today due to concerns regarding his right foot ulcers. He was started on Augmentin 875 mg p.o. twice daily at a virtual office visit on 09/12/2020. A surface wound culture taken at that time is presently growing gram-negative bacilli with sensitivities pending. In the emergency department this evening, patient was started on vancomycin IV and Zosyn IV. Pertinent laboratories included the following: Glucose 187, creatinine 1.4, WBC 17.24, hemoglobin 10.7, lactate 2.4, albumin 2.7 and potassium 3.4. Maximum temperature was 100.9 F X-ray of right foot showed no acute bony abnormality. An ulceration and a punctate radiodense foreign body are suggested along the plantar aspect of the forefoot. Soft tissue edema seen throughout the forefoot with foci of subcutaneous gas, which could be related to the ulceration or possibly gas- forming infection with clinical correlation being essential. Chest x-ray showed cardiomegaly with no radiographic evidence of congestive failure. There are mild hazy interstitial airspace opacities seen bilaterally, with clinical correlation needed for evidence of an infectious/inflammatory pneumonitis. Principal Diagnosis Diabetic ulcer, COVID infection Discharge Exam Constitutional WD/WN, vitals as above Respiratory normal respiratory effort, lungs clear to auscultation Cardiovascular RRR, no murmur, no edema Gastrointestinal (Abdomen) normal bowel sounds, soft, nontender, no hepatosplenomegaly Musculoskeletal no cyanosis or clubbing, extremities motor strength 5/5 Skin no rashes, warm and dry Neurologic moves all extremities and awake Psychiatric A+Ox3, euthymic affect Discharge Data Allergies Allergy/AdvReac Type Severity Reaction Status Date / Time animal dander Allergy Congested Verified 09/13/20 23:14 lisinopril AdvReac Mild COUGH Verified 09/13/20 23:14 Consultations 09/13/20 23:20 ED Decision to Admit Stat 09/14/20 01:11 Consult Case Management - Discharge Planning Routine 09/15/20 16:43 Consult Orthopedic Surgery Routine 09/16/20 12:03 Consult Vascular Surgery Routine Procedures Performed Operation Date: 09/19/20 07:00 Actual Procedures p Abscess great toe 1st metatarsophalangeal joint. Evacuation abscess 2nd toe proximal interphalangeal and 2nd metatarsophalangeal joint. Incision and drainage neuropathic ulcers [id number]. Incison and drainage great toe-skin, fascia, subcutaneous, joint capsule, extensor. Removal phlegmon. Tenosynovectomy 2nd toe. (Right) - Andre Patton DO Ordered Studies 09/14/20 06:05 US arterial duplex LE BI Routine 09/16/20 12:03 MR foot RT wo/w con Routine Hospital Course (1) Diabetic foot ulcers: Diabetic foot ulcers of right foot-infected, with abscess formation, with surrounding cellulitis Outpatient culture is growing proteus mirabilis and group B beta strep, repeat cultures with yeast and group b beta strep. Sensitive to ceftriaxone Consulted wound care appreciated lower extremity arterial Dopplers show hemodynamically significant stenosis of the right dorsalis pedis, although he has strong pulses on examination No obvious signs of osteomyelitis on Xray or MRI, but does show soft tissue infection Vascular surgery opinion sought and recommended no intervention of the dorsalis pedis Right second toe is a sausage digit with purpleish discoloration-could have thrombi to the smaller vessels perhaps from Covid infection? No vascular intervention necessary for that BCx no growth to date CRP and ESR trending downward Foot debridement 09/19 -Per ortho rec - Continue IV ceftriaxone for two week and then transition to 4 weeks of oral antibiotics - will have patient take Augmentin bid -Leukocytosis persists but now is likely from corticosteroid use and is trending down; thrombocytosis also likely secondary to reactive process to infection -Fevers have now resolved-could have been from Covid but most likely secondary to significant foot infection -Dressing changed today by ortho - will follow with their office for further dressing changes -He is not having much pain at this point due to his neuropathy so no pain medicine needed - per ortho rec - ASA bid for dvt proph (2) Fever: Now resolved-most likely secondary to foot infection versus Covid-19 infection BC ngtd Continue antibiotics for the foot Procalcitonin is normal at 0.3 (3) Acute kidney injury: Resolved Creatinine 1.4 upon admission, now 0.8 -Reduced chlorthalidone dose to 25 mg p.o. every morning. Repeat labs am (4) COVID-19 virus infection: Patient initially had symptoms of cough and dyspnea on exertion on 09/04 and his had been hospitalized for Covid-19 He was tested here and was positive on 09/11 upon admission developed dry cough and sob as well as hypoxia on 09/14. He was requiring oxygen for pulse ox was less than 94%, with evidence of pneumonia on chest [id number] dexamethasone 6 mg IV once daily x 4 days but then discontinued to ensure proper wound healing for foot surgery as he is clinically significantly improved with no further hypoxia -He completed a 5-day course of remdesivir We will hold off on convalescent plasma as no real likely benefit in ongoing studies and do not want to fluid overload him With acute respiratory failure with hypoxia-significantly improved and now weaned off oxygen Follow chest x-ray to resolution as an outpatient Continue Tessalon Perles as needed for cough -Continue albuterol 2 puffs every 4 hours as needed (5) Hypokalemia: Possibly secondary to chlorthalidone-now resolved after replacement Follow BMP (6) Hypertension: Blood pressures are significantly elevated 09/19, possibly due to anxiety while awaiting surgery Continue amlodipine 10 mg daily - increased home dose of losartan up to 100 mg daily Continue lower dose of chlorthalidone 25 mg once daily due to hypokalemia (7) Diabetic neuropathy: does not appear to take medication for this Is contributing to diabetic foot infection (8) Diabetes mellitus type 2, uncontrolled: Will continue on his own insulin pump With hyperglycemia secondary to dexamethasone now improved after adjustment of the pump Holding Metformin from home - can resume at [facility] ac & hs He is very good at managing his pump Fluids can be stopped after that once taking p.o. again (9) Sleep apnea: This is a suspected diagnosis but he has not had a formal sleep study yet (10) Cervical spine disease: He had a recent cervical spine fusion about 3 months ago in [place] Doing well with this and walks with a cane (11) Dyslipidemia: Continue atorvastatin (12) Acute respiratory failure with hypoxia: As above, secondary to Covid-19 pneumonia-now resolved, pulse ox 98% on room air at rest Is now weaned off oxygen Discontinued dexamethasone as above (13) Thrombocytosis: As above, platelets trending upward today to 673, likely reactive secondary to infection (14) DVT prophylaxis: heparin subq high dose but placed on hold for surgery today, scds - ASA for home as above Total Time Total Time Spent Total Time Spent (In Minutes): greater than 30 minutes Discharge Plan Discharge Items Patient Disposition: Home - Home Health Services Reason For Visit: DIABETIC FOOT ULCER, COVID INFECTION Discharge Diagnosis: Diabetic foot ulcer, covid infection Activity: As commented below Non-emergency contact: Primary Care Provider and Surgeon Call non-emergency contact if: you have any medication questions Follow-up/Referrals: Bee Tellez CRNP [Primary Care Provider] - (follow up one week ) Diet: Carb Consistent or DM2 Addtl Attending Provider Instructions: (1) Diabetic foot ulcers: Diabetic foot ulcers of right foot-infected, with abscess formation, with surrounding cellulitis You will continue with two weeks of IV ceftriaxone. When the ceftriaxone is complete you will transition to Augmentin orally for 4 more weeks. Continue avoiding weight bearing in your right foot and wear the boot when up. You should follow up with [facility] tomorrow to schedule a follow up appointment and dressing change. Their number is [phone] You will need to increase your baby aspirin (81mg) to twice daily to help prevent blood clots while you heal (2) COVID-19 virus infection: You were given 5 days of remdesivir and 4 days of dexamethasone during your stay to treat this. You can continue albuterol 2 puffs every 4 hours as needed and tessalon perles You should stay quarantined for 14 days following your initial positive test (3) Hypertension: Because of lab abnormalities when you were admitted your medications were changed. - losartan increased to 100 mg daily - chlorthalidone decreased to 25 mg daily - continue amlodipine Continue these doses for now and follow up with your primary care provider. Take your blood pressure every day at different times after sitting quietly for at least 5 minutes with legs uncrossed. Keep a log to take to your provider at your next appointment. (4) Sleep apnea: This is a suspected diagnosis but no formal sleep study yet - discuss with your primary care provider Stand-Alone Forms: My [facility], Smoking Cessation Medications and DC Order Prescriptions: New amoxicillin-pot clavulanate [Augmentin] 875-125 mg tablet 1 tab PO BID Qty: 56 RF: 0 chlorthalidone 25 mg Tablet 25 mg PO QAM Qty: 30 RF: 0 aspirin 81 mg Tablet,Delayed Release (Dr/Ec) 81 mg PO BID Qty: 60 RF: 0 losartan 50 mg Tablet 100 mg PO QAM Qty: 30 RF: 0 Continued insulin lispro [Humalog U-100 Insulin] 100 unit/mL solution 120 units continuous subcutaneous infusion .COMPLEX 90 Days Qty: 11 RF: 3 amlodipine 10 mg tablet 10 mg PO DAILY Qty: 90 RF: 3 atorvastatin 20 mg tablet 20 mg PO ONCE Qty: 90 RF: 3 metformin 1,000 mg tablet 1,000 mg PO BID Qty: 180 RF: 3 tramadol 50 mg tablet 50 mg PO Q4H PRN (Reason: pain) Qty: 180 RF: 0 diclofenac sodium [Voltaren] 1 % gel 2 g topical QID Qty: 100 RF: 2 cyclobenzaprine 5 mg tablet See Rx Instructions PO DAILY PRN (Reason: muscle spasm) Qty: 45 RF: 5 albuterol sulfate [Ventolin HFA] 90 mcg/actuation HFA aerosol inhaler 2 puff inhalation 6XD PRN (Reason: shortness of breath or wheezing) Qty: 8.5 RF: 3 cyanocobalamin (vitamin B-12) 1,000 mcg tablet 1,000 mcg PO DAILY RF: 0 cholecalciferol (vitamin D3) 1,000 unit capsule 2,000 units PO DAILY RF: 0 insulin lispro 100 unit/mL solution 120 units continuous subcutaneous infusion UD Qty: 11 RF: 0 acetaminophen 325 mg capsule 325 mg PO QID PRN (Reason: Pain) RF: 0 benzonatate [Tessalon Perles] 100 mg capsule 100 mg PO TID Qty: 30 RF: 0 Discontinued chlorthalidone 25 mg tablet 50 mg PO BID Qty: 90 RF: 3 losartan 100 mg tablet 50 mg PO DAILY Qty: 90 RF: 3 amoxicillin-pot clavulanate [Augmentin] 875-125 mg tablet 1 tab PO BID Qty: 20 RF: 0 methylprednisolone [Medrol (Hayden)] 4 mg tablets,dose pack See Rx Instructions .Route .COMPLEX Qty: 21 RF: 0 aspirin 81 mg tablet,delayed release (DR/EC) 81 mg PO DAILY RF: 0 Discharge Orders: Discharge Order (Routine); Ordered 09/21/20 Ordered By: Ellyn Dia Admission Data Admit Date/Time: 09/13/20 23:57 Attending Provider: Joo Quan Admit Provider: Jason Sewell Primary Care Provider: Bee Tellez Other Providers: Andre Patton ; Jamal Scott ; Lopez Jackson ; Jw Medrano ; Bret Layne Other Interventions: Discharge Summary Assessment (RN) Last Done: 09/21/20 14:09 Supervising Physician Co-Signing Physician Notes Patient seen and examined on the day of discharge. I agree with the discharge summary by Ellyn TOSCANO. I have reviewed the chart including labs, imaging and plans for discharge. patient doing well, minimal pain in right foot discussed plan with Dr. Patton, recommends two weeks of IV antibiotics then 4 weeks PO - Diabetic foot infection, s/p incision and drainage and debridement cultures from prior to admission grew out Proteus and Strep, sensitive to Rocephin and ampicillin will send on Rocephin IV and then transition to Augmentin follow up with wound care follow up with orthopedics minimal pain in foot, walking with boot Coding Level of Care Code D/C Day Management >30 mins Diagnoses Diabetic foot ulcers E11.621; L97.509 Fever R50.9 Acute kidney injury N17.9 COVID-19 virus infection U07.1 Hypokalemia E87.6 Hypertension I10 Diabetic neuropathy E11.40 Diabetes mellitus type 2, uncontrolled E11.65 Sleep apnea G47.30 Cervical spine disease M48.9 Dyslipidemia E78.5 Acute respiratory failure with hypoxia J96.01 Thrombocytosis D47.3 DVT prophylaxis Z29.9
[2020-09-21] MEDS: traMADol HCL 50 MG TABLET PO PRN (14:16)
[2020-09-21] MEDS ORDERED: ASPIRIN 81 MG ECTAB PO SCH (21:00)
--- NOTE | 2020-09-23 12:48 | Coding Query ---
CODING QUERY FOR UNCONTROLLED DIABETES To promote full compliance with coding requirements relating to patient care, provider participation is requested in all cases of gasoline finisher uncertainty. Please assist us with the question(s) below: Coding Question: The term uncontrolled Diabetes was used throughout the record. To be able to code this diagnosis properly, could you please clarify the diagnosis below: ( ) Uncontrolled Diabetes meaning hypoglycemia (x ) Uncontrolled Diabetes meaning hyperglycemia ( ) Other (please specify) Principal Diagnosis: "that condition established after study, to be chiefly responsible for occasioning the admission of the patient to the hospital for care." Co-Existing Principal Diagnosis: "when two or more diagnoses equally meet the criteria for principal diagnosis as determined by the circumstances of admission, diagnostic work up, and/or therapy provided, and the Alphabetic Index, Tabular List, or another coding guideline does not provide sequencing direction, any one of the diagnoses may be sequenced first." "When the physician has documented what appears to be a current diagnosis in the body of the record, but has not included the diagnosis in the final diagnostic statement, the physician should be asked whether the diagnosis should be added." ([facility] 2 QTR90. p3-4) CHIDI
--- NOTE | 2020-09-23 12:51 | Coding Query ---
CHRONIC ULCER DOCUMENTATION To promote full compliance with coding requirements relating to patient care, physician participation is requested in all cases of credit reference clerk uncertainty. Please assist us with the question(s) below: Please specify the known or suspected type by placing an "X" within the parenthesis (x). A diabetic ulcer of the right plantar foot ( ) limited to breakdown of skin ( ) with fat layer exposed ( ) with necrosis of muscle ( ) with necrosis of bone ( ) with muscle involvement without evidence of necrosis ( ) with bone involvement without evidence of necrosis ( ) with other specified severity ( x) with unspecified severity A diabetic ulcer right medial toe ( ) limited to breakdown of skin ( ) with fat layer exposed ( ) with necrosis of muscle ( ) with necrosis of bone ( ) with muscle involvement without evidence of necrosis ( ) with bone involvement without evidence of necrosis ( ) with other specified severity (x ) with unspecified severity This query would be better answered by wound or surgery and I will defer to their expertise. Thank you Thank you Kaykay MURILLO
== END 2020-09-21 15:39 | disposition home health service (06) | DRG 622 ==
LOC: ED 21:45 → 3E 23:57 → SUATTDRO 23:57 → 3E 09-14 00:48